=== PATIENT | female | born 1940 | race Caucasian/White ===

== ENCOUNTER 2016-08-09 22:22 | Emergency (ER) | payer MEDICARE ==
[2016-08-09] MEDS ORDERED: ACETAMINOPHEN 325 MG TABLET PO ONE (23:54)
--- NOTE | 2016-08-10 00:21 | ER Document Report ---
ED Fall - General Chief Complaint: Fall Stated Complaint: FALL/ALTERED MENTAL STATUS Notes: The patient is a 76-year-old female, past medical history dementia, on 81 mg daily ASA, since from the [facility] after she was found to have her head against the table while at dinner. She denies any LOC and is only complaining of a dull frontal headache. She denies numbness, tingling, blurry vision, neck pain, chest pain, shortness of breath, fevers or abdominal pain. TRAVEL OUTSIDE OF THE [place] IN LAST 30 DAYS: No - Related data Allergies/Adverse Reactions: No Known Allergies Allergy (Unverified 08/09/16 22:45) Past Medical History - General Information source: Transfer Record Cannot obtain history due to: Dementia - Social History Smoking Status: Unknown if Ever Smoked Family History: Reviewed & Not Pertinent - Past Medical History Cardiac Medical History: Reports: Hx Hypercholesterolemia, Hx Hypertension GI Medical History: Reports: Hx Gastroesophageal Reflux Disease Past Surgical History: Reports: Hx Abdominal Surgery Review of Systems - Review of Systems Notes: REVIEW OF SYSTEMS: CONSTITUTIONAL: -fevers, -chills EENT: -eye pain, -difficulty swallowing, -nasal congestion CARDIOVASCULAR:-chest pain, -syncope. RESPIRATORY: -cough, -SOB GASTROINTESTINAL: -abdominal pain, -nausea, -vomiting, -diarrhea GENITOURINARY: -dysuria, -hematuria MUSCULOSKELETAL: -back pain, -neck pain SKIN: -rash or skin lesions. HEMATOLOGIC: -easy bruising or bleeding. LYMPHATIC: -swollen, enlarged glands. NEUROLOGICAL: -altered mental status or loss of consciousness, +headache, - neurologic symptoms PSYCHIATRIC: -anxiety, -depression. ALL OTHER SYSTEMS REVIEWED AND NEGATIVE. Physical Exam - Vital signs Vitals: Temp Pulse Resp BP Pulse Ox 97.5 F 68 16 142/66 H 99 08/09/16 22:40 08/09/16 22:40 08/09/16 22:40 08/09/16 22:40 08/09/16 22:40 - Notes Notes: PHYSICAL EXAMINATION: GENERAL: Well-appearing, well-nourished and in no acute distress. HEAD: Atraumatic, normocephalic. EYES: Pupils equal round and reactive to light, extraocular movements intact, sclera anicteric, conjunctiva are normal. ENT: nares patent, oropharynx clear without exudates. Moist mucous membranes. NECK: Normal range of motion, supple without lymphadenopathy LUNGS: Breath sounds clear to auscultation bilaterally and equal. No wheezes rales or rhonchi. HEART: Regular rate and rhythm without murmurs ABDOMEN: Soft, nontender, normoactive bowel sounds. No guarding, no rebound. No masses appreciated. EXTREMITIES: Normal range of motion, no pitting or edema. No cyanosis. NEUROLOGICAL: Cranial nerves grossly intact. Normal speech, normal gait. Normal sensory, motor, and reflex exams. PSYCH: Normal mood, normal affect. SKIN: Warm, Dry, normal turgor, no rashes or lesions noted. Course - Re-evaluation Re-evalutation: Patient had a witnessed fall and she said that she hit the front of her head against the table. CT head does not show any acute abnormalities. Tylenol resolved her mild headache. No syncopal episode and no LOC. Will DC home back to the [facility] with follow-up at primary care physician. Given strict return precautions. - Vital Signs Vital signs: Temp Pulse Resp BP Pulse Ox 97.5 F 68 16 142/66 H 99 08/09/16 22:40 08/09/16 22:40 08/09/16 22:40 08/09/16 22:40 08/09/16 22:40 - Diagnostic Test Radiology reviewed: Image reviewed, Reports reviewed Radiology results interpreted by me: CT Head: NAD Discharge - Discharge Clinical Impression: Head injury Qualifiers: Encounter type: initial encounter Qualified Code(s): S09.90XA - Unspecified injury of head, initial encounter Condition: Good Disposition: HOME, SELF-CARE Additional Instructions: A CAT scan of your head does not show any bleeds or skull fractures. HEADACHE: The physician does not feel that the headache you are experiencing has a serious underlying cause. Most headaches are due to emotional stress, with resultant muscle tension (tension headache). Occasionally, headaches are secondary to changes in the blood vessels of the scalp (vascular headache and migraine headache). Sometimes, a headache is the first symptom of another developing illness, such as a viral infection. You have no evidence of stroke, bleeding, meningitis, or other serious cause of your headache. The treatment of headaches varies with the severity and cause of the pain. Not all headaches need pain shots. In fact, there is evidence that using narcotics for headaches may make them worse in the long run. The physician will determine the therapy that's in your best interest. If you develop a fever, if the headache is different from any you've previously experienced, or if the headache progressively worsens, then call your physician at once or go to the emergency room. FOLLOW-UP CARE: If you have been referred to a physician for follow-up care, call the physician s office for an appointment as you were instructed or within the next two days. If you experience worsening or a significant change in your symptoms, notify the physician immediately or return to the Emergency Department at any time for re-evaluation.
[2016-08-10 05:56] VITALS: BP 146/78
== END 2016-08-10 05:56 | disposition home or self-care (01) ==
LOC: ER 22:22
DX: S09.90XA Unspecified injury of head, initial encounter (principal); W07.XXXA Fall from chair, initial encounter; Y92.129 Unspecified place in nursing home as the place of occurrence of the external cause; R51 Headache; I10 Essential (primary) hypertension; F03.90 Unspecified dementia, unspecified severity, without behavioral disturbance, psychotic disturbance, mood disturbance, and anxiety
CPT/HCPCS: 99284; 70450; A9270

== ENCOUNTER → 2016-10-03 | Outpatient (CLI) | payer MEDICARE | LOC: RAD 13:59 | PROVIDERS: ATTEND Specialist | DX: S32.2XXA Fracture of coccyx, initial encounter for closed fracture (principal); X58.XXXA Exposure to other specified factors, initial encounter | CPT/HCPCS: 72220 ==

== ENCOUNTER 2017-01-15 03:27 | Emergency (ER) | payer MEDICARE ==
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
--- NOTE | 2017-01-15 04:53 | RADIOLOGY REPORT (SQ) ---
EXAM DESCRIPTION: CT HEAD WITHOUT COMPLETED DATE/TIME: 01/15/2017 4:34 am REASON FOR STUDY: fall pain head neck bilateral femur and abdomen COMPARISON: 2.. TECHNIQUE: Axial images acquired through the brain without intravenous contrast. Images reviewed wi th bone, brain and subdural windows. Images stored on PACS. All CT scanners at this facility use dose modulation, iterative reconstruction, and/or weight based d osing when appropriate to reduce radiation dose to as low as reasonably achievable (ALARA). [facility]: Dose Right [facility]: CareDose [facility]: Dose Right [facility]: Teradose 4D [facility]: [employer] RADIATION DOSE: Up-to-date CT equipment and radiation dose reduction techniques were employed. CTDIv ol: 50.5 mGy. DLP: 909 mGy-cm. mGy. LIMITATIONS: None. FINDINGS: VENTRICLES: Normal size and contour. CEREBRUM: No masses. No hemorrhage. No midline shift. Normal mckinnon/white matter differentiation. N o evidence for acute infarction. [id number] cerebral volume loss. CEREBELLUM: No masses. No hemorrhage. No alteration of density. No evidence for acute infarction. EXTRAAXIAL SPACES: No fluid collections. No masses. ORBITS AND GLOBE: No intra- or extraconal masses. Normal contour of globe without masses. CALVARIUM: No fracture. PARANASAL SINUSES: No fluid or mucosal thickening. SOFT TISSUES: No mass or hematoma. OTHER: No other significant finding. IMPRESSION: No acute findings. TECHNICAL DOCUMENTATION: JOB ID: [id number] Quality ID # [id number]: Final reports with documentation of one or more dose reduction techniques (e.g., Au tomated exposure control, adjustment of the mA and/or kV according to patient size, use of iterative reconstruction technique) 2010 [employer]- All Rights Reserved
--- NOTE | 2017-01-15 04:56 | RADIOLOGY REPORT (SQ) ---
EXAM DESCRIPTION: CT CERVICAL SPINE WITHOUT COMPLETED DATE/TIME: 01/15/2017 4:34 am REASON FOR STUDY: fall pain head neck bilateral femur and abdomen COMPARISON: None. TECHNIQUE: Axial images acquired through the cervical spine without intravenous contrast. Images re viewed with lung, soft tissue and bone windows. Reconstructed coronal and sagittal MPR images review ed. Images stored on PACS. All CT scanners at this facility use dose modulation, iterative reconstruction, and/or weight based d osing when appropriate to reduce radiation dose to as low as reasonably achievable (ALARA). [facility]: Dose Right [facility]: CareDose [facility]: Dose Right [facility]: Teradose 4D [facility]: [employer] RADIATION DOSE: Up-to-date CT equipment and radiation dose reduction techniques were employed. CTDIv ol: 7.6 mGy. DLP: 162 mGy-cm. mGy. LIMITATIONS: None. FINDINGS: ALIGNMENT: Anatomic. MINERALIZATION: Normal. VERTEBRAL BODIES: No fractures or dislocation. DISCS: Small to moderate desiccated -protrusive disc disease between the C2 and C6 levels. Mild-to-m oderate bilateral see the 5 and C6 bony foraminal stenosis FACETS, LATERAL MASSES, POSTERIOR ELEMENTS: Moderate spondylosis. HARDWARE: None in the spine. VISUALIZED RIBS: No fractures. LUNG APICES AND SOFT TISSUES: Moderate bullous disease of the visualized upper lungs. OTHER: No other significant finding. IMPRESSION: No acute findings. In small to moderate desiccated-protrusive disc disease of the midce rvical spine. Moderate spondylosis. TECHNICAL DOCUMENTATION: JOB ID: [id number] Quality ID # [id number]: Final reports with documentation of one or more dose reduction techniques (e.g., Au tomated exposure control, adjustment of the mA and/or kV according to patient size, use of iterative reconstruction technique) 2010 [employer]- All Rights Reserved
--- NOTE | 2017-01-15 05:21 | RADIOLOGY REPORT (SQ) ---
EXAM DESCRIPTION: FEMUR BILATERAL 2 VIEWS COMPLETED DATE/TIME: 01/15/2017 4:56 am REASON FOR STUDY: fall pain head neck bilateral femur and abdomen COMPARISON: None. NUMBER OF VIEWS: 8 views. TECHNIQUE: 8radiographic images acquired of the right and left femur to include hip and knee in at l east one projection. LIMITATIONS: None. FINDINGS: MINERALIZATION: Normal. BONES: No acute fracture. No worrisome bone lesions. SOFT TISSUES: No obvious swelling or foreign body. OTHER: Sutures of the lower pelvis. IMPRESSION: NEGATIVE STUDY OF THE RIGHT AND LEFT FEMURS. NO RADIOGRAPHIC EVIDENCE FOR ACUTE INJURY. TECHNICAL DOCUMENTATION: JOB ID: [id number] [employer]- All Rights Reserved
--- NOTE | 2017-01-15 05:24 | RADIOLOGY REPORT (SQ) ---
EXAM DESCRIPTION: L SPINE WHOLE COMPLETED DATE/TIME: 01/15/2017 4:56 am REASON FOR STUDY: fall pain head neck bilateral femur and abdomen COMPARISON: None. NUMBER OF VIEWS: Five views including obliques. TECHNIQUE: AP, lateral, oblique, and sacral radiographic images acquired of the lumbar spine. LIMITATIONS: None. FINDINGS: MINERALIZATION: Osteopenia. SEGMENTATION: Normal. No transitional anatomy. ALIGNMENT: Normal. VERTEBRAE: Mild L1 anterior compression deformity likely chronic compared with frontal abdomen radiog raphs, 06/07/2016. DISCS: Preserved height. No significant osteophytes or end plate irregularity. POSTERIOR ELEMENTS: Pedicles and facets are intact. No pars defect or posterior arch defects. HARDWARE: None in the spine. PARASPINAL SOFT TISSUES: Normal. PELVIS: Intact as visualized. No fractures or worrisome bone lesions. SI joints intact. OTHER: No other significant finding. IMPRESSION: Mild L1 anterior compression deformity, likely chronic based on limited comparative exam s. TECHNICAL DOCUMENTATION: JOB ID: [id number] [employer]- All Rights Reserved
[2017-01-15 07:24] VITALS: BP 152/85
== END 2017-01-15 07:26 ==
LOC: ER 03:27
DX: T14.8 Other injury of unspecified body region (principal); Y04.8XXA Assault by other bodily force, initial encounter; Y92.128 Other place in nursing home as the place of occurrence of the external cause; R51 Headache; M54.9 Dorsalgia, unspecified; M54.2 Cervicalgia; M79.652 Pain in left thigh; M79.651 Pain in right thigh; R10.9 Unspecified abdominal pain; G30.9 Alzheimer's disease, unspecified; F02.80 Dementia in other diseases classified elsewhere, unspecified severity, without behavioral disturbance, psychotic disturbance, mood disturbance, and anxiety; I10 Essential (primary) hypertension; E78.00 Pure hypercholesterolemia, unspecified; Z79.899 Other long term (current) drug therapy
CPT/HCPCS: 70450; 72110; 72125; 73552; 99285

== ENCOUNTER 2017-05-01 11:23 | Inpatient (IN) | payer MEDICARE ==
[2017-05-01] MEDS ORDERED: ONDANSETRON HCL INJ/PF 4 MG/2 ML SDV IV ONE (12:33)
--- NOTE | 2017-05-01 13:06 | ER Document Report ---
ED General - General Chief Complaint: Abdominal Pain Stated Complaint: ABDOMINAL PAIN Time Seen by Provider: 05/01/17 12:32 Mode of Arrival: Medic Information source: Patient Cannot obtain history due to: Dementia Notes: 77 yr old female hx of dementia presents from the [facility] with concern of abd pain and nausea vomtiing prior to arrival. Upon arrival pt denies any concerns at all and requests to go home immediately without any work up. No body care manager is present. TRAVEL OUTSIDE OF THE [place] IN LAST 30 DAYS: No - HPI Onset: Just prior to arrival Onset/Duration: Sudden Quality of pain: Achy Severity: Mild Pain Level: 1 Associated symptoms: Nausea, Vomiting Exacerbated by: Denies Relieved by: Denies Similar symptoms previously: No Recently seen / treated by doctor: No - Related Data Allergies/Adverse Reactions: No Known Allergies Allergy (Unverified 08/09/16 22:45) Home Medications: Current Home Medications Atorvastatin Calcium [Lipitor 10 mg Tablet] 10 mg PO QHS 05/01/17 [History] Metoprolol Succinate [Toprol Xl 25 mg Tab.sr] 12.5 mg PO DAILY 05/01/17 [History ] Omeprazole 40 mg PO Q6AM 05/01/17 [History] Quetiapine Fumarate [Seroquel] 50 mg PO QHS 05/01/17 [History] Past Medical History - Social History Smoking Status: Never Smoker Cigarette use (# per day): No Chew tobacco use (# tins/day): No Smoking Education Provided: No Family History: Reviewed & Not Pertinent - Past Medical History Cardiac Medical History: Reports: Hx Hypercholesterolemia, Hx Hypertension Renal/ Medical History: Denies: Hx Peritoneal Dialysis GI Medical History: Reports: Hx Gastroesophageal Reflux Disease Musculoskeltal Medical History: Reports Hx Arthritis Psychiatric Medical History: Reports: Hx Dementia - Alzheimer's Past Surgical History: Reports: Hx Abdominal Surgery Review of Systems - Review of Systems Notes: REVIEW OF SYSTEMS: CONSTITUTIONAL : Denies fever, chills, or sweats. Denies recent illness. EENT: Denies eye, ear, throat, or mouth pain or symptoms. Denies nasal or sinus congestion or discharge. Denies throat, tongue, or mouth swelling or difficulty swallowing. CARDIOVASCULAR: Denies chest pain. Denies palpitations or racing or irregular heart beat. Denies ankle edema. RESPIRATORY: Denies cough, cold, or chest congestion. Denies shortness of breath, difficulty breathing, or wheezing. GASTROINTESTINAL: Admits to abdominal pain nausea vomiting GENITOURINARY: Denies difficulty urinating, painful urination, burning, frequency, blood in urine, or discharge. FEMALE GENITOURINARY: Denies vaginal bleeding, heavy or abnormal periods, irregular periods. Denies vaginal discharge or odor. MUSCULOSKELETAL: Denies back or neck pain or stiffness. Denies joint pain or swelling. SKIN: Denies rash, lesions or sores. HEMATOLOGIC : Denies easy bruising or bleeding. LYMPHATIC: Denies swollen, enlarged glands. NEUROLOGICAL: Denies confusion or altered mental status. Denies passing out or loss of consciousness. Denies dizziness or lightheadedness. Denies headache. Denies weakness or paralysis or loss of use of either side. Denies problems with gait or speech. Denies sensory loss, numbness, or tingling. Denies seizures. PSYCHIATRIC: Denies anxiety or stress. Denies depression, suicidal ideation, or homicidal ideation. ALL OTHER SYSTEMS REVIEWED AND NEGATIVE. PHYSICAL EXAMINATION: GENERAL: Well-appearing, well-nourished and in no acute distress. HEAD: Atraumatic, normocephalic. EYES: Pupils equal round and reactive to light, extraocular movements intact, conjunctiva are normal. ENT: Nares patent, oropharynx clear without exudates. Moist mucous membranes. NECK: Normal range of motion, supple without lymphadenopathy LUNGS: Breath sounds clear to auscultation bilaterally and equal. No wheezes rales or rhonchi. HEART: Regular rate and rhythm without murmurs ABDOMEN: Soft, minimally tender epigastric region no rebound or guarding Female : deferred Musculoskeletal: Normal range of motion, no pitting or edema. No cyanosis. NEUROLOGICAL: Cranial nerves grossly intact. Normal speech, normal gait. Normal sensory, motor exams PSYCH: Normal mood, normal affect. SKIN: Warm, Dry, normal turgor, no rashes or lesions noted. Dictation was performed using [employer] voice recognition software Physical Exam - Vital signs Vitals: Resp Pulse Ox 17 92 05/01/17 11:46 05/01/17 11:46 Course - Re-evaluation Re-evalutation: 05/01/17 13:05 When I evaluated the patient, she was in no distress denies any complaints at all but was quite demented, she is oriented to person place not time. She believes the present works in the emergency department. She was agreeable at that time to do a CT of the abdomen even though she is nontender in no distress. Patient was evaluated by the nurse right after me immediately refused to have IV placed stated that she does not have any imaging done and that we cannot force her. I did attempt to call daughter and left a voice message 05/01/17 15:53 Daughter called again after finding of aortic aneurysm , [facility] was paged as well in order to get further history since patient has dementia She was 05/01/17 16:04 I did speak regarding admission with Dr. Cedeno, I explained that the patient denies any abdominal pain at this time, lipase was elevated patient does have urinary tract infection, 6 cm aortic aneurysm is noted but patient is a DNR, he believes patient's appropriate for discharge however at this time I will continue to watch in the ED 05/01/17 16:27 Ms Clemons called for the 4th time 05/01/17 16:38 Dr Martinez vascular surgeon states he would not intervene, requests beta ava for pressure control increased to 25 mg daily 05/01/17 16:[address] Ceedno and Dr Jeter, since patient is a DNR, no surgical intervention is offered by [facility], I would like ot admit her here for the pancreatitis and UTI. Pt is now admitting to mild epigastric pain which does not appear to be related to the AAA, i would have preferred to speak with family but again no response - Vital Signs Vital signs: Temp Pulse Resp BP Pulse Ox 29 H 138/80 H 100 05/01/17 13:01 05/01/17 16:02 05/01/17 16:02 - Laboratory Result Diagrams: 05/01/17 14:43 05/01/17 12:34 Laboratory results interpreted by me: 05/01/17 05/01/17 12:34 12:34 Sodium 145.2 H BUN 25 H Creatinine 1.36 H Est GFR ( Amer) 46 L Est GFR (Non-Af Amer) 38 L Direct Bilirubin 0.5 H Alkaline Phosphatase 138 H Lipase 447.9 H Urine Blood SMALL H Ur Leukocyte Esterase LARGE H - Diagnostic Test Radiology reviewed: Image reviewed, Reports reviewed Discharge - Discharge Clinical Impression: DNR (do not resuscitate), AAA (abdominal aortic aneurysm) without rupture UTI (urinary tract infection) Qualifiers: Urinary tract infection type: acute cystitis Hematuria presence: without hematuria Qualified Code(s): N30.00 - Acute cystitis without hematuria Pancreatitis Qualifiers: Chronicity: acute Pancreatitis type: unspecified pancreatitis type Acute pancreatitis complication: unspecified Qualified Code(s): K85.90 - Acute pancreatitis without necrosis or infection, unspecified Dementia Qualifiers: Dementia type: unspecified type Dementia behavioral disturbance: with behavioral disturbance Qualified Code(s): F03.91 - Unspecified dementia with behavioral disturbance Condition: Stable Disposition: ADMITTED OBSERVATION Admitting Provider: Hospitalist Unit Admitted: Telemetry
[2017-05-01 13:10] LABS: APPEARANCE,URINE CLOUDY; BILIRUBIN,URINE NEGATIVE (NEGATIVE); GLUCOSE, URINE NEGATIVE (NEGATIVE); KETONES,URINE NEGATIVE (NEGATIVE); LEUKOCYTE ESTERASE,URINE LARGE (NEGATIVE); NITRITE,URINE NEGATIVE (NEGATIVE); PROTEIN,URINE NEGATIVE (NEGATIVE); URINE SPECIFIC GRAVITY 1.009; UROBILINOGEN,URINE NEGATIVE mg/dL (<2.0)
[2017-05-01 13:30] LABS: ALANINE AMINOTRANSFERASE 11 U/L (9-52); ALBUMIN 4.1 g/dL (3.5-5.0); ALKALINE PHOSPHATASE 138 U/L (38-126); ANION GAP 11 (5-19); ASPARTATE AMINO TRANSFERASE 24 U/L (14-36); BILIRUBIN,DIRECT 0.5 mg/dL (0.0-0.4); BILIRUBIN,TOTAL 0.7 mg/dL (0.2-1.3); BLOOD UREA NITROGEN 25 mg/dL (7-20); CALCIUM 9.2 mg/dL (8.4-10.2); CARBON DIOXIDE 27 mmol/L (22-30); CHLORIDE 107 mmol/L (98-107); CREATININE RESULT 1.36 mg/dL (0.52-1.25); GLUCOSE 94 mg/dL (75-110); LIPASE 447.9 U/L (23-300); POTASSIUM 4.5 mmol/L (3.6-5.0); SODIUM 145.2 mmol/L (137-145); TOTAL PROTEIN 8.2 g/dL (6.3-8.2)
[2017-05-01] MEDS ORDERED: LORAZEPAM INJ 2 MG/1 ML VIAL IM ONE (13:43)
[2017-05-01] MEDS ORDERED: DIPHENHYDRAMINE HCL 50 MG/ML VIAL IM ONE (13:44)
[2017-05-01] MEDS ORDERED: LORAZEPAM INJ 2 MG/1 ML VIAL ONE (13:45)
[2017-05-01] MEDS ORDERED: CEFTRIAXONE 1 GM/D5W RTU 1 GM/50 ML RTUPB IV ONE (14:20)
[2017-05-01 15:11] LABS: ABSOLUTE BASOPHILS # (AUTO) 0.1 10^3/uL (0.0-0.2); ABSOLUTE EOSINOPHILS # (AUTO) 0.3 10^3/uL (0.0-0.6); ABSOLUTE LYMPHOCYTES (AUTO) 1.7 10^3/uL (0.5-4.7); ABSOLUTE MONOCYTES (AUTO) 0.7 10^3/uL (0.1-1.4); ABSOLUTE NEUT (AUTO) 4.9 10^3/uL (1.7-8.2); HEMATOCRIT 36.5 % (36.0-47.0); HEMOGLOBIN 12.3 g/dL (12.0-15.5); HGB HCT DIFFERENCE 0.4; LYMPHOCYTES % (AUTO) 21.9 % (13-45); MEAN CORPUSCULAR HEMOGLOBIN 31.2 pg (27.0-33.4); MEAN CORPUSCULAR HGB CONC 33.7 g/dL (32.0-36.0); MEAN CORPUSCULAR VOLUME 93 fl (80-97); MONOCYTES % (AUTO) 9.6 % (3-13); RED BLOOD COUNT 3.94 10^6/uL (3.72-5.28); RED CELL DISTRIBUTION WIDTH 13.9 % (11.5-14.0); SEGMENTED NEUTROPHILS % (AUTO) 63.5 % (42-78); WHITE BLOOD COUNT 7.8 10^3/uL (4.0-10.5)
[2017-05-01] MEDS: NORMAL SALINE 1000 ML 1,000 ML IV PRN ×2 (15:20→16:10)
--- NOTE | 2017-05-01 17:17 | RADIOLOGY REPORT (SQ) ---
EXAM DESCRIPTION: CT ABD/PELVIS WITH IV ONLY COMPLETED DATE/TIME: 05/01/2017 5:03 pm REASON FOR STUDY: abd pain COMPARISON: None. TECHNIQUE: CT scan of the abdomen and pelvis performed using helical scanning technique with dynamic intravenous contrast injection. No oral contrast. Images reviewed with lung, soft tissue, and bone windows. Reconstructed coronal and sagittal MPR images reviewed. Delayed images for evaluation of the urinary system also acquired. All images stored on PACS. All CT scanners at this facility use dose modulation, iterative reconstruction, and/or weight based d osing when appropriate to reduce radiation dose to as low as reasonably achievable (ALARA). [facility]: Dose Right [facility]: CareDose [facility]: Dose Right [facility]: Teradose 4D [facility]: ATOMOO CONTRAST TYPE AND DOSE: contrast/concentration: Isovue 370.00 mg/ml; Total Contrast Delivered: 53.0 ml; Total Saline Delivered: 39.4 ml RENAL FUNCTION: BUN 25 creatinine 1.4 RADIATION DOSE: Up-to-date CT equipment and radiation dose reduction techniques were employed. CTDIv ol: 5.4 - 6.5 mGy. DLP: 625 mGy-cm.. LIMITATIONS: Positioning. FINDINGS: LOWER CHEST: Hiatal hernia. LIVER: Normal size. No masses. No dilated ducts. SPLEEN: Normal size. No focal lesions. PANCREAS: No masses. No significant calcifications. No adjacent inflammation or peripancreatic fluid collections. Pancreatic duct not dilated. GALLBLADDER: Gallstones. No inflammatory changes to suggest cholecystitis. ADRENAL GLANDS: No significant masses or asymmetry. RIGHT KIDNEY AND URETER: No solid masses. No significant calcifications. No hydronephrosis or hyd roureter. LEFT KIDNEY AND URETER: No solid masses. No significant calcifications. No hydronephrosis or hydr oureter. AORTA AND VESSELS: Infrarenal aortic aneurysm 5.5 x 5.8 x 5.7 cm in AP by transverse by craniocaudal diameter. The true lumen diameter 3.0 x 4.4 cm. Mural thrombus to right of midline but no definite active extravasation. RETROPERITONEUM: No retroperitoneal adenopathy, hemorrhage or masses. BOWEL AND PERITONEAL CAVITY: Abundant fecal material throughout nondilated colon. APPENDIX: Not visualized. PELVIS: Mild mass effect on the urinary bladder due to impacted fecal material in the rectum. ABDOMINAL WALL: Prior ventral hernia repair. BONES: No significant or acute findings. OTHER: No other significant finding. IMPRESSION: 1. 6 cm infrarenal aortic aneurysm. 2. Fecal retention. 3. Cholelithiasis. TECHNICAL DOCUMENTATION: JOB ID: [id number] Quality ID # [id number]: Final reports with documentation of one or more dose reduction techniques (e.g., Au tomated exposure control, adjustment of the mA and/or kV according to patient size, use of iterative reconstruction technique) 2010 [employer]- All Rights Reserved
--- NOTE | 2017-05-01 17:43 | PDOC H&P ---
History of Present Illness Admission Date/PCP: 05/01/17 16:56 NO LOCALMD Patient complains of: Abdominal pain. History of Present Illness: SHAHBAZ ROSA is a 77 year old female with underlying dementia. She normally resides at the [facility]. She was brought in today for a 3 day history of abdominal pain. I am unable to get any reliable history from this patient secondary to her severe dementia. However, intermittently she has complained of nausea and vomiting with a poor appetite. She denies fevers or diarrhea. Again, her review of systems is very unreliable. The patient's physical exam is compatible with acute pancreatitis. The patient did have a CT scan done that confirms gallstones but does not demonstrate evidence of acute cholecystitis. The patient also has evidence of a urinary tract infection and according to records at [facility] she has had an extended spectrum beta lactamase producing bacteria in the past. She will be admitted to observation and reevaluated in the morning. She will be made n.p.o. overnight and we can try to advance her diet tomorrow. Past Medical History Cardiac Medical History: Reports: Hyperlipidema, Hypertension GI Medical History: Reports: Gastroesophageal Reflux Disease Musculoskeltal Medical History: Reports: Arthritis Psychiatric Medical History: Reports: Dementia - Alzheimer's Social History Smoking Status: Never Smoker - Advance Directive Resuscitation Status: Full Code Surrogate healthcare decision maker:: The computer lists Iris Clemons as the patient's point of contact. Her phone number in the chart is [phone] Family History Family History: Reviewed & Not Pertinent Parental Family History Reviewed: No - Unknown Children Family History Reviewed: Unknown Sibling(s) Family History Reviewed.: Unknown Medication/Allergy Home Medications: Atorvastatin Calcium [Lipitor 10 mg Tablet] 10 mg PO QHS 05/01/17 Metoprolol Succinate [Toprol Xl 25 mg Tab.sr] 12.5 mg PO DAILY 05/01/17 Omeprazole 40 mg PO Q6AM 05/01/17 Quetiapine Fumarate [Seroquel] 50 mg PO QHS 05/01/17 Allergies/Adverse Reactions: No Known Allergies Allergy (Unverified 08/09/16 22:45) Review of Systems ROS unobtainable: Due to mental status Physical Exam Vital Signs: Temp Pulse Resp BP Pulse Ox 29 H 138/80 H 100 05/01/17 13:01 05/01/17 16:02 05/01/17 16:02 General appearance: PRESENT: no acute distress Additional comments: The patient is in no distress. She is oriented to person. She does not know that she is in the emergency room. She cannot tell me what city she is in. She cannot tell me her current address. She is able to follow simple commands, E. G. Take a deep breath. Her facial appearance is fairly normal. Cranial nerves II through XII are intact. Her oropharynx shows that she has upper teeth but no lower teeth. She does have moderate dental caries present. The lips are normal. The mucous membranes are moist. The neck is supple. She has full range of motion. Trachea is midline. Thyroid is nonpalpable. She does not have any cervical or supraclavicular lymphadenopathy. The lungs are clear anteriorly. Posteriorly, the patient has some scattered crackles at the bases of the lung bran. Her cardiac exam is regular without murmurs, gallops or rubs. The abdomen is soft and flat. Bowel sounds are present and are hypoactive. The patient does not have any hepatosplenomegaly. She has no guarding or rebound noted and there are no hernias or masses present. The patient does have epigastric pain with moderate to deep palpation. The lower extremities are warm to touch. She has trace pedal edema which is symmetrical bilaterally. Skin exam is clean dry and intact without lesions or rashes. Results Impressions: Abdomen/Pelvis CT 05/01/17 12:32 IMPRESSION: 1. 6 cm infrarenal aortic aneurysm. 2. Fecal retention. 3. Cholelithiasis. Assessment & Plan - Diagnosis (1) AAA (abdominal aortic aneurysm) without rupture Is this a current diagnosis for this admission?: Yes Plan: The emergency room physician has contacted the vascular surgeon at [facility]. They have not recommended any intervention at this time for the abdominal aortic aneurysm. However, recommendations include increasing the dose of beta-ava. (2) Dementia Qualifiers: Dementia type: unspecified type Dementia behavioral disturbance: with behavioral disturbance Qualified Code(s): F03.91 - Unspecified dementia with behavioral disturbance Is this a current diagnosis for this admission?: Yes Plan: At this point in time I need to corroborate old records for CODE STATUS. We are trying to reach Iris Clemons. Until I can verify this information I will make the patient a full code. (3) Pancreatitis Qualifiers: Chronicity: acute Pancreatitis type: unspecified pancreatitis type Acute pancreatitis complication: unspecified Qualified Code(s): K85.90 - Acute pancreatitis without necrosis or infection, unspecified Plan: Begin IV fluids. I will make the patient n.p.o. overnight. Hopefully, we can try to advance her diet tomorrow. The patient does have gallstones. If she is considered an appropriate candidate we could consider an elective cholecystectomy. (4) UTI (urinary tract infection) Qualifiers: Urinary tract infection type: acute cystitis Hematuria presence: without hematuria Qualified Code(s): N30.00 - Acute cystitis without hematuria Is this a current diagnosis for this admission?: Yes Plan: Antibiotics will be started for acute urinary tract infection. - Time Time Spent: 50 to 70 Minutes - Inpatient Certification Medical Necessity: Significant Comorbidiites Make Outpatient Treatment Too Risky , Need for Pain Control, Need for IV Antibiotics, Risk of Complication if Not Cared For in Hospital
[2017-05-01] MEDS ORDERED: ONDANSETRON HCL INJ/PF 4 MG/2 ML SDV IV PRN (17:44)
[2017-05-01] MEDS ORDERED: GLUCAGON,HUMAN RECOMB 1 MG INJ SUBCUT PRN (17:44)
[2017-05-01] MEDS ORDERED: DEXTROSE 50%-WATER 25 GM/50 ML DISP.SYRIN IV PRN ×2 (17:44)
[2017-05-01] MEDS ORDERED: ACETAMINOPHEN 325 MG TABLET PO PRN (17:44)
[2017-05-01] MEDS ORDERED: DEXTROSE 40% GEL 15 GM TUBE PO PRN ×2 (17:44)
--- NOTE | 2017-05-01 18:49 | Progress Note ---
Provider Note Provider Note: The RN admitting the patient reports that the patient has confirmation of DNR status. Her paperwork has been DNR since May 20, 2016. Therefore, I will change the patient's CODE STATUS to DO NOT RESUSCITATE.
[2017-05-01] MEDS ORDERED: MEROPENEM 500 MG in NORMAL SALINE 50 ML IV SCH ×4 (22:00)
[2017-05-01] MEDS ORDERED: (PENDING PHARMACY ID) (Quetiapine Fumarate [Seroquel] 50 MG) PO SCH (22:00)
[2017-05-01] MEDS: DORIPENEM 250 MG in NORMAL SALINE 50 ML IV SCH (22:31)
[2017-05-01] MEDS: QUETIAPINE FUMARATE 25 MG TABLET PO SCH (22:34)
[2017-05-01] MEDS: ATORVASTATIN CALCIUM 10 MG TABLET PO SCH (22:34)
[2017-05-02 05:25] LABS: HEMATOCRIT 34.5 % (36.0-47.0); HEMOGLOBIN 11.7 g/dL (12.0-15.5); HGB HCT DIFFERENCE 0.6; MEAN CORPUSCULAR HEMOGLOBIN 31.3 pg (27.0-33.4); MEAN CORPUSCULAR HGB CONC 34.1 g/dL (32.0-36.0); MEAN CORPUSCULAR VOLUME 92 fl (80-97); RED BLOOD COUNT 3.75 10^6/uL (3.72-5.28); RED CELL DISTRIBUTION WIDTH 14.3 % (11.5-14.0); WHITE BLOOD COUNT 6.2 10^3/uL (4.0-10.5)
[2017-05-02] MEDS: LANSOPRAZOLE 30 MG TAB.RAP.DR PO SCH (05:38)
[2017-05-02] MEDS: DORIPENEM 250 MG in NORMAL SALINE 50 ML IV SCH (05:48)
[2017-05-02 05:56] LABS: ANION GAP 11 (5-19); BLOOD UREA NITROGEN 17 mg/dL (7-20); CALCIUM 8.8 mg/dL (8.4-10.2); CARBON DIOXIDE 24 mmol/L (22-30); CHLORIDE 109 mmol/L (98-107); CHOLESTEROL 200.84 mg/dL (0-200); CREATININE RESULT 1.15 mg/dL (0.52-1.25); Direct HDL 38 mg/dL (>40); GLUCOSE 97 mg/dL (75-110); PHOSPHORUS 3.3 mg/dL (2.5-4.5); SODIUM 144.2 mmol/L (137-145); TRIGLYCERIDES 114 mg/dL (<150)
[2017-05-02 06:06] LABS: DIRECT LDL 130 mg/dL (<100)
--- NOTE | 2017-05-02 08:06 | Physician Advisory Note ---
Physician Advisor ProgressNote .: [facility], I have reviewed the medical record for this patient. Physician Advisor Statement: Please consider documenting, if you agree: 1. "Hypernatremia, likely due to intravascular volume depletion, now resolved" 2. If she shows evidence of increased work of breathing associated with hypoxemia, please document this & consider dx of "Acute Resp Failure" Status: Appropriately made Obs initially. Since coming in, pt has had episodes of hypoxemia with tachypnea, as well as agitation. She was started on Doripenem (after Rocephin in ED). If she cannot be advanced in diet and safely set up for discharge today, please document the reasons ("I am concerned about ....") and may then change to Inpatient status. Thanks! CK
[2017-05-02] MEDS: METOPROLOL SUCCINATE 25 MG TAB.SR.24H PO SCH (09:22)
[2017-05-02] MEDS: DOCUSATE SODIUM 100 MG CAPSULE PO SCH (09:22)
[2017-05-02] MEDS: OXYCODONE-ACETAMINOPHEN 5-325 MG TABLET PO PRN ×2 (09:23→15:40)
--- NOTE | 2017-05-02 13:47 | PDOC PROGRESS REPORT ---
Subjective Progress Note for:: 05/02/17 Subjective:: SHAHBAZ ROSA is a 77 year old female with underlying dementia who was admitted on 05/01 with nausea, vomiting, and poor PO appetite. Admission labs notable for elevated lipase however CT abdomen showed no evidence of intra-abdominal pathology other than choleithiasis. She was admitted for suspected pancreatitis as observation status. Overnight continues to complain of abdominal pain, nausea, and vomiting. States that she had 3 episodes of non-bloody emesis. Has been unable to tolerate any PO due to symptoms. Denies fevers, chills, CP, SOB, abdominal pain. Patient at times confused and is an unreliable historian. Denies previous episodes of pancreatitis. Physical Exam Vital Signs: Temp Pulse Resp BP Pulse Ox 97.8 F 76 18 143/90 H 94 05/02/17 11:23 05/02/17 11:23 05/02/17 11:23 05/02/17 11:23 05/02/17 11:23 Intake & Output 05/01/17 05/02/17 05/03/17 06:59 06:59 06:59 Weight 51.6 kg General appearance: PRESENT: no acute distress, well-developed, well-nourished Head exam: PRESENT: atraumatic, normocephalic Eye exam: PRESENT: conjunctiva pink. ABSENT: scleral icterus Mouth exam: PRESENT: dry mucosa Neck exam: ABSENT: carotid bruit, JVD, lymphadenopathy, thyromegaly Respiratory exam: PRESENT: crackles - mild crackles at bases, decreased breath sounds. ABSENT: rales, rhonchi, wheezes Cardiovascular exam: PRESENT: RRR. ABSENT: diastolic murmur, rubs, systolic murmur Pulses: PRESENT: normal dorsalis pedis pul Vascular exam: PRESENT: normal capillary refill GI/Abdominal exam: PRESENT: normal bowel sounds, soft, tenderness - Epigastric tenderness to deep palpation. ABSENT: distended, guarding, mass, organolmegaly , rebound Rectal exam: PRESENT: deferred Extremities exam: PRESENT: full ROM. ABSENT: calf tenderness, clubbing, pedal edema Neurological exam: PRESENT: alert, awake, oriented to person, oriented to situation, CN II-XII grossly intact. ABSENT: oriented to place, oriented to time, motor sensory deficit Psychiatric exam: PRESENT: anxious. ABSENT: homicidal ideation, suicidal ideation Focused psych exam: PRESENT: other - Confused Skin exam: PRESENT: dry, intact, warm. ABSENT: cyanosis, rash Results Laboratory Results: 05/02/17 04:25 05/02/17 04:25 05/02/17 05/02/17 04:25 04:25 WBC 6.2 RBC 3.75 Hgb 11.7 L Hct 34.5 L MCV 92 MCH 31.3 MCHC 34.1 RDW 14.3 H Plt Count 205 Sodium 144.2 Potassium 4.0 Chloride 109 H Carbon Dioxide 24 Anion Gap 11 BUN 17 Creatinine 1.15 Est GFR ( Amer) 56 L Est GFR (Non-Af Amer) 46 L Glucose 97 Calcium 8.8 Phosphorus 3.3 Magnesium 2.0 Triglycerides 114 Cholesterol 200.84 H LDL Cholesterol Direct 130 H VLDL Cholesterol 23.0 HDL Cholesterol 38 L Impressions: Abdomen/Pelvis CT 05/01/17 12:32 IMPRESSION: 1. 6 cm infrarenal aortic aneurysm. 2. Fecal retention. 3. Cholelithiasis. Assessment & Plan - Diagnosis (1) Pancreatitis Qualifiers: Chronicity: acute Pancreatitis type: unspecified pancreatitis type Acute pancreatitis complication: unspecified Qualified Code(s): K85.90 - Acute pancreatitis without necrosis or infection, unspecified Plan: Not entirely clear if abdominal pain is secondary to pancreatitis. Lipase is noted to be elevated however there is no evidence of pancreatic stranding on CT abdominal report. However patient continues to have abdominal pain, nausea, vomiting, and poor PO intake. Plan - Continue NPO status for now, consideration of advancing diet later today or tomorrow AM - Continue supportive measures with IVF, anti-emetics, and pain medications - No indication for further imaging at this time. (2) UTI (urinary tract infection) Qualifiers: Urinary tract infection type: acute cystitis Hematuria presence: without hematuria Qualified Code(s): N30.00 - Acute cystitis without hematuria Is this a current diagnosis for this admission?: Yes Plan: Resolved. Urine culture with mixed joseluis. Antibiotics discontinued. (3) AAA (abdominal aortic aneurysm) without rupture Is this a current diagnosis for this admission?: Yes Plan: At admission, [facility] ED contacted the vascular surgeon at [facility]. They have not recommended any intervention at this time for the abdominal aortic aneurysm. Beta-ava dose was increased per recommendation. Should be followed closely as an outpatient. (4) DNR (do not resuscitate) Plan: Code status discussed and is DNI/DNR (5) Dementia Qualifiers: Dementia type: unspecified type Dementia behavioral disturbance: with behavioral disturbance Qualified Code(s): F03.91 - Unspecified dementia with behavioral disturbance Is this a current diagnosis for this admission?: Yes Plan: Appears to be at baseline. - Time Time Spent with patient: 15-24 minutes Critical Time spent with patient: 15-24 minutes - Inpatient Certification Medical Necessity: Need For IV Fluids, Risk of Complication if Not Cared For in Hospital
[2017-05-02] MEDS: DEXTROSE 5%-1/2 NORMAL SALINE 1,000 ML IV PRN (14:21)
[2017-05-02] MEDS ORDERED: PROCHLORPERAZINE MALEATE 5 MG TABLET PO PRN (17:04)
[2017-05-02] MEDS ORDERED: ONDANSETRON HCL INJ/PF 4 MG/2 ML SDV IV PRN (17:05)
[2017-05-02] MEDS: QUETIAPINE FUMARATE 25 MG TABLET PO SCH (21:20)
[2017-05-02] MEDS: ATORVASTATIN CALCIUM 10 MG TABLET PO SCH (21:20)
[2017-05-03] MEDS: LANSOPRAZOLE 30 MG TAB.RAP.DR PO SCH (05:02)
[2017-05-03 05:26] LABS: HEMATOCRIT 32.1 % (36.0-47.0); HEMOGLOBIN 11.1 g/dL (12.0-15.5); HGB HCT DIFFERENCE 1.2; MEAN CORPUSCULAR HEMOGLOBIN 31.7 pg (27.0-33.4); MEAN CORPUSCULAR HGB CONC 34.6 g/dL (32.0-36.0); MEAN CORPUSCULAR VOLUME 92 fl (80-97); RED CELL DISTRIBUTION WIDTH 14.1 % (11.5-14.0)
[2017-05-03 05:45] LABS: ANION GAP 13 (5-19); BLOOD UREA NITROGEN 14 mg/dL (7-20); CALCIUM 8.7 mg/dL (8.4-10.2); CARBON DIOXIDE 22 mmol/L (22-30); CHLORIDE 108 mmol/L (98-107); CREATININE RESULT 1.08 mg/dL (0.52-1.25); GLUCOSE 112 mg/dL (75-110); POTASSIUM 3.7 mmol/L (3.6-5.0)
[2017-05-03] MEDS: DOCUSATE SODIUM 100 MG CAPSULE PO SCH (09:26)
[2017-05-03] MEDS: METOPROLOL SUCCINATE 25 MG TAB.SR.24H PO SCH (09:29)
[2017-05-03] MEDS: ONDANSETRON HCL INJ/PF 4 MG/2 ML SDV IV PRN ×2 (09:35→16:19)
[2017-05-03] MEDS: PROCHLORPERAZINE MALEATE 5 MG TABLET PO PRN (10:20)
[2017-05-03] MEDS: OXYCODONE-ACETAMINOPHEN 5-325 MG TABLET PO PRN (10:20)
--- NOTE | 2017-05-03 14:21 | PDOC PROGRESS REPORT ---
Subjective Progress Note for:: 05/03/17 Subjective:: Pt states that she is still having abd pain. Physical Exam Vital Signs: Temp Pulse Resp BP Pulse Ox 98.9 F 74 16 106/62 90 L 05/03/17 11:35 05/03/17 11:35 05/03/17 11:35 05/03/17 11:35 05/03/17 11:35 Intake & Output 05/02/17 05/03/17 05/04/17 06:59 06:59 06:59 Intake Total 1781 Balance 1781 Weight 51.4 kg 51.4 kg General appearance: PRESENT: no acute distress, thin Head exam: PRESENT: atraumatic, normocephalic Eye exam: PRESENT: conjunctiva pink, EOMI, PERRLA. ABSENT: scleral icterus Ear exam: PRESENT: normal external ear exam Mouth exam: PRESENT: moist, tongue midline Neck exam: ABSENT: carotid bruit, JVD, lymphadenopathy, thyromegaly Respiratory exam: PRESENT: clear to auscultation kenn. ABSENT: rales, rhonchi, wheezes Cardiovascular exam: PRESENT: RRR. ABSENT: diastolic murmur, rubs, systolic murmur Pulses: PRESENT: normal dorsalis pedis pul GI/Abdominal exam: PRESENT: soft, tenderness - epigastric tenderness Rectal exam: PRESENT: deferred Extremities exam: PRESENT: full ROM. ABSENT: calf tenderness, clubbing, pedal edema Neurological exam: PRESENT: alert, altered, oriented to person Psychiatric exam: PRESENT: appropriate affect, normal mood. ABSENT: homicidal ideation, suicidal ideation Skin exam: PRESENT: dry, intact, warm. ABSENT: cyanosis, rash Results Laboratory Results: 05/03/17 04:30 05/03/17 04:30 05/03/17 05/03/17 04:30 04:30 WBC 6.0 RBC 3.50 L Hgb 11.1 L Hct 32.1 L MCV 92 MCH 31.7 MCHC 34.6 RDW 14.1 H Plt Count 198 Sodium 143.0 Potassium 3.7 Chloride 108 H Carbon Dioxide 22 Anion Gap 13 BUN 14 Creatinine 1.08 Est GFR ( Amer) > 60 Est GFR (Non-Af Amer) 49 L Glucose 112 H Calcium 8.7 Impressions: Abdomen/Pelvis CT 05/01/17 12:32 IMPRESSION: 1. 6 cm infrarenal aortic aneurysm. 2. Fecal retention. 3. Cholelithiasis. Assessment & Plan - Diagnosis (1) Pancreatitis Qualifiers: Chronicity: acute Pancreatitis type: unspecified pancreatitis type Acute pancreatitis complication: unspecified Qualified Code(s): K85.90 - Acute pancreatitis without necrosis or infection, unspecified Is this a current diagnosis for this admission?: Yes Plan: Will continue current treatment. (2) Constipation Is this a current diagnosis for this admission?: Yes Plan: Write for Enema. Will write for Magnesium Citrate. (3) Acute renal injury Is this a current diagnosis for this admission?: Yes Plan: in Setting of CKD Stage 2: Will continue IVF. Renal function has improved. (4) AAA (abdominal aortic aneurysm) without rupture Is this a current diagnosis for this admission?: Yes Plan: Supportive care. (5) Dementia Qualifiers: Dementia type: unspecified type Dementia behavioral disturbance: with behavioral disturbance Qualified Code(s): F03.91 - Unspecified dementia with behavioral disturbance Is this a current diagnosis for this admission?: Yes Plan: Supportive Care. (6) UTI (urinary tract infection) Qualifiers: Urinary tract infection type: acute cystitis Hematuria presence: without hematuria Qualified Code(s): N30.00 - Acute cystitis without hematuria Is this a current diagnosis for this admission?: Yes Plan: Urine culture not consistent with UTI/Acute Cystitis: Ruled out. (7) DNR (do not resuscitate) Is this a current diagnosis for this admission?: Yes Plan: Continue current treatment. - Time Time Spent with patient: 15-24 minutes
[2017-05-03] MEDS ORDERED: MAGNESIUM CITRATE 296 ML BOTTLE PO ONE (15:30)
[2017-05-03] MEDS: QUETIAPINE FUMARATE 25 MG TABLET PO SCH (21:28)
[2017-05-03] MEDS: ATORVASTATIN CALCIUM 10 MG TABLET PO SCH (21:28)
[2017-05-04] MEDS: LANSOPRAZOLE 30 MG TAB.RAP.DR PO SCH (05:09)
[2017-05-04 06:01] LABS: ALANINE AMINOTRANSFERASE 27 U/L (9-52); ALBUMIN 3.1 g/dL (3.5-5.0); ALKALINE PHOSPHATASE 95 U/L (38-126); ANION GAP 10 (5-19); ASPARTATE AMINO TRANSFERASE 17 U/L (14-36); BILIRUBIN,DIRECT 0.5 mg/dL (0.0-0.4); BILIRUBIN,TOTAL 0.6 mg/dL (0.2-1.3); BLOOD UREA NITROGEN 12 mg/dL (7-20); CALCIUM 8.7 mg/dL (8.4-10.2); CARBON DIOXIDE 23 mmol/L (22-30); CHLORIDE 110 mmol/L (98-107); CREATININE RESULT 1.13 mg/dL (0.52-1.25); GLUCOSE 108 mg/dL (75-110); POTASSIUM 3.9 mmol/L (3.6-5.0); SODIUM 143.4 mmol/L (137-145); TOTAL PROTEIN 6.3 g/dL (6.3-8.2)
--- NOTE | 2017-05-04 09:21 | PDOC PROGRESS REPORT ---
Subjective Progress Note for:: 05/04/17 Subjective:: Nursing states that pt had a large bowel movement overnight. Pt this morning states that she is not having any abd pain. Pt states that she would like to eat. Physical Exam Vital Signs: Temp Pulse Resp BP Pulse Ox 98.8 F 80 16 127/76 H 93 05/04/17 07:42 05/04/17 07:42 05/04/17 07:42 05/04/17 07:42 05/04/17 07:42 Intake & Output 05/03/17 05/04/17 05/05/17 06:59 06:59 06:59 Intake Total 1781 1800 Balance 1781 1800 Weight 51.4 kg 50.2 kg General appearance: PRESENT: no acute distress, thin Head exam: PRESENT: atraumatic, normocephalic Eye exam: PRESENT: conjunctiva pink, EOMI, PERRLA. ABSENT: scleral icterus Ear exam: PRESENT: normal external ear exam Neck exam: ABSENT: carotid bruit, JVD, lymphadenopathy, thyromegaly Respiratory exam: PRESENT: clear to auscultation kenn. ABSENT: rales, rhonchi, wheezes Cardiovascular exam: PRESENT: RRR. ABSENT: diastolic murmur, rubs, systolic murmur Pulses: PRESENT: normal dorsalis pedis pul Vascular exam: PRESENT: normal capillary refill GI/Abdominal exam: PRESENT: normal bowel sounds, soft. ABSENT: distended, guarding, mass, organolmegaly, rebound, tenderness Rectal exam: PRESENT: deferred Extremities exam: PRESENT: full ROM. ABSENT: calf tenderness, clubbing, pedal edema Musculoskeletal exam: PRESENT: full ROM Neurological exam: PRESENT: alert, awake, oriented to person Psychiatric exam: PRESENT: appropriate affect, normal mood. ABSENT: homicidal ideation, suicidal ideation Skin exam: PRESENT: dry, intact, warm. ABSENT: cyanosis, rash Results Laboratory Results: 05/03/17 04:30 05/04/17 05:06 05/04/17 05:06 Sodium 143.4 Potassium 3.9 Chloride 110 H Carbon Dioxide 23 Anion Gap 10 BUN 12 Creatinine 1.13 Est GFR ( Amer) 57 L Est GFR (Non-Af Amer) 47 L Glucose 108 Calcium 8.7 Total Bilirubin 0.6 AST 17 ALT 27 Alkaline Phosphatase 95 Total Protein 6.3 Albumin 3.1 L Impressions: Abdomen/Pelvis CT 05/01/17 12:32 IMPRESSION: 1. 6 cm infrarenal aortic aneurysm. 2. Fecal retention. 3. Cholelithiasis. Assessment & Plan - Diagnosis (1) Pancreatitis Qualifiers: Chronicity: acute Pancreatitis type: unspecified pancreatitis type Acute pancreatitis complication: unspecified Qualified Code(s): K85.90 - Acute pancreatitis without necrosis or infection, unspecified Is this a current diagnosis for this admission?: Yes Plan: Will advance diet today. (2) Constipation Is this a current diagnosis for this admission?: Yes Plan: Will check KUB today. Nursing and Pt reporting large bowel movement. (3) Acute renal injury Is this a current diagnosis for this admission?: Yes Plan: in Setting of CKD Stage 2: Resolved. (4) AAA (abdominal aortic aneurysm) without rupture Is this a current diagnosis for this admission?: Yes Plan: Supportive care. (5) Dementia Qualifiers: Dementia type: unspecified type Dementia behavioral disturbance: with behavioral disturbance Qualified Code(s): F03.91 - Unspecified dementia with behavioral disturbance Is this a current diagnosis for this admission?: Yes Plan: Supportive Care. (6) UTI (urinary tract infection) Qualifiers: Urinary tract infection type: acute cystitis Hematuria presence: without hematuria Qualified Code(s): N30.00 - Acute cystitis without hematuria Is this a current diagnosis for this admission?: Yes Plan: Urine culture not consistent with UTI/Acute Cystitis: Ruled out. (7) DNR (do not resuscitate) Is this a current diagnosis for this admission?: Yes Plan: Continue current treatment. - Time Time Spent with patient: 15-24 minutes
--- NOTE | 2017-05-04 10:56 | Physician Advisory Note ---
Physician Advisor ProgressNote .: Pursuant to the plan for [facility], I have reviewed the medical record for this patient. Physician Advisor Statement: Please consider documenting, if you agree: 1. "Acute hypernatremia, likely due to intravascular volume depletion, resolved " 2. "Suspected JEFFREY, ruled out" (or document evidence of >0.3mg/dl improvement in Cr since IVF) 3. "underweight with protein-calorie malnutrition [state mild, mod, or severe] with BMI __, ____[?wt loss, ?appetite loss, ]" [if possible, give specifics on intake, wt loss, loss of SQ fat & muscle mass, diminished hand accreditation specialist strength, & clinical importance such as (A) nutritional assessment ordered, (B) modified diet or supplements ordered, (C) additional labs ordered, (D) prolonged wound healing time, (E) delayed infxn clearance] Thanks! CK
--- NOTE | 2017-05-04 11:06 | RADIOLOGY REPORT (SQ) ---
EXAM DESCRIPTION: KUB/ABDOMEN (SINGLE VIEW) COMPLETED DATE/TIME: 05/04/2017 10:43 am REASON FOR STUDY: Constipation A41.9 SEPSIS, UNSPECIFIED ORGANISM K85.80 OTHER ACUTE PANCREATITIS WITHOUT NECROSIS OR INFECTIO COMPARISON: 06/07/[address] ABDOMEN AND PELVIS 05/01/2017 NUMBER OF VIEWS: One view. TECHNIQUE: Supine radiographic image of the abdomen acquired. LIMITATIONS: None. FINDINGS: BOWEL GAS PATTERN: Persistent large amount of stool in the ascending and transverse colon, large amount of stool in the rectum. Otherwise unremarkable bowel gas pattern. CALCIFICATIONS: Multiple small calcified gallstones in the right upper quadrant. SOFT TISSUES: No gross mass or suggestion of organomegaly. HARDWARE: Midline surgical sutures, faintly radiopaque. BONES: No acute fracture. No worrisome bone lesions. OTHER: The under ruptured infrarenal abdominal aortic aneurysm seen on CT exam 05/01/2017 is not appa rent by plain film IMPRESSION: Persistent large amount of stool in the colon Findings called to Dr. Aldrich TECHNICAL DOCUMENTATION: JOB ID: [id number] [employer]- All Rights Reserved
[2017-05-04] MEDS: DOCUSATE SODIUM 100 MG CAPSULE PO SCH (11:42)
[2017-05-04] MEDS: METOPROLOL SUCCINATE 25 MG TAB.SR.24H PO SCH (11:44)
[2017-05-04] MEDS: DEXTROSE 5%-1/2 NORMAL SALINE 1,000 ML IV PRN (12:19)
[2017-05-04] MEDS: ONDANSETRON HCL INJ/PF 4 MG/2 ML SDV IV PRN (16:48)
[2017-05-04] MEDS ORDERED: PEG 3350/NA SULF,BICARB,CL/KCL 4000 ML PO ONE (17:00)
[2017-05-04] MEDS: QUETIAPINE FUMARATE 25 MG TABLET PO SCH (21:21)
[2017-05-04] MEDS: ATORVASTATIN CALCIUM 10 MG TABLET PO SCH (21:21)
[2017-05-05] MEDS: LANSOPRAZOLE 30 MG TAB.RAP.DR PO SCH (05:27)
[2017-05-05 06:34] LABS: ANION GAP 13 (5-19); BLOOD UREA NITROGEN 15 mg/dL (7-20); CARBON DIOXIDE 23 mmol/L (22-30); CHLORIDE 107 mmol/L (98-107); CREATININE RESULT 1.11 mg/dL (0.52-1.25); GLUCOSE 90 mg/dL (75-110); SODIUM 142.5 mmol/L (137-145)
[2017-05-05] MEDS: METOPROLOL SUCCINATE 25 MG TAB.SR.24H PO SCH (09:55)
[2017-05-05] MEDS: ONDANSETRON HCL INJ/PF 4 MG/2 ML SDV IV PRN (09:55)
[2017-05-05] MEDS: DOCUSATE SODIUM 100 MG CAPSULE PO SCH (09:55)
[2017-05-05] MEDS ORDERED: MAGNESIUM CITRATE 296 ML BOTTLE PO ONE ×2 (10:00→14:00)
[2017-05-05] MEDS: PROCHLORPERAZINE MALEATE 5 MG TABLET PO PRN ×2 (10:06→16:23)
--- NOTE | 2017-05-05 15:56 | PDOC PROGRESS REPORT ---
Subjective Progress Note for:: 05/05/17 Subjective:: Pt states that she is doing well. Nursing states that she would not drank Magnesium Citrate or Golytely. Physical Exam Vital Signs: Temp Pulse Resp BP Pulse Ox 98.5 F 78 20 143/73 H 96 05/05/17 12:00 05/05/17 12:00 05/05/17 12:00 05/05/17 12:00 05/05/17 12:00 Intake & Output 05/04/17 05/05/17 05/06/17 06:59 06:59 06:59 Intake Total 1800 806 Balance 1800 806 Weight 50.2 kg 51.3 kg General appearance: PRESENT: no acute distress, thin Head exam: PRESENT: atraumatic, normocephalic Eye exam: PRESENT: conjunctiva pink, EOMI, PERRLA. ABSENT: scleral icterus Ear exam: PRESENT: normal external ear exam Mouth exam: PRESENT: moist, tongue midline Neck exam: ABSENT: carotid bruit, JVD, lymphadenopathy, thyromegaly Respiratory exam: PRESENT: clear to auscultation kenn. ABSENT: rales, rhonchi, wheezes Cardiovascular exam: PRESENT: RRR. ABSENT: diastolic murmur, rubs, systolic murmur Pulses: PRESENT: normal dorsalis pedis pul Vascular exam: PRESENT: normal capillary refill GI/Abdominal exam: PRESENT: normal bowel sounds, soft. ABSENT: distended, guarding, mass, organolmegaly, rebound, tenderness Rectal exam: PRESENT: deferred Extremities exam: PRESENT: full ROM. ABSENT: calf tenderness, clubbing, pedal edema Neurological exam: PRESENT: alert, altered, awake, oriented to person Psychiatric exam: PRESENT: appropriate affect, normal mood. ABSENT: homicidal ideation, suicidal ideation Skin exam: PRESENT: dry, intact, warm. ABSENT: cyanosis, rash Results Laboratory Results: 05/03/17 04:30 05/05/17 05:00 05/05/17 05:00 Sodium 142.5 Potassium 4.0 Chloride 107 Carbon Dioxide 23 Anion Gap 13 BUN 15 Creatinine 1.11 Est GFR ( Amer) 58 L Est GFR (Non-Af Amer) 48 L Glucose 90 Calcium 9.0 Impressions: Abdomen/Pelvis CT 05/01/17 12:32 IMPRESSION: 1. 6 cm infrarenal aortic aneurysm. 2. Fecal retention. 3. Cholelithiasis. KUB X-Ray 05/04/17 00:00 IMPRESSION: Persistent large amount of stool in the colon Findings called to Dr. Aldrich Assessment & Plan - Diagnosis (1) Constipation Is this a current diagnosis for this admission?: Yes Plan: Will place on Miralax and order enema again. Will discharge on miralax daily. (2) Pancreatitis Qualifiers: Chronicity: acute Pancreatitis type: unspecified pancreatitis type Acute pancreatitis complication: unspecified Qualified Code(s): K85.90 - Acute pancreatitis without necrosis or infection, unspecified Is this a current diagnosis for this admission?: Yes Plan: Resolved. (3) Acute renal injury Is this a current diagnosis for this admission?: Yes Plan: in Setting of CKD Stage 2 initial Cr 1.36: Pt given IVF and cr improved to 1.08. (4) Acute hypernatremia Is this a current diagnosis for this admission?: Yes Plan: Secondary to Dehydration: Resolved with IVFs (5) Dehydration Is this a current diagnosis for this admission?: Yes Plan: Resolved with IVFs (6) Moderate protein-calorie malnutrition Is this a current diagnosis for this admission?: Yes Plan: Continue to encourage good PO intake. (7) AAA (abdominal aortic aneurysm) without rupture Is this a current diagnosis for this admission?: Yes Plan: Will arrange pt with Interventional Radiology at [facility] [phone]. (8) Dementia Qualifiers: Dementia type: unspecified type Dementia behavioral disturbance: with behavioral disturbance Qualified Code(s): F03.91 - Unspecified dementia with behavioral disturbance Is this a current diagnosis for this admission?: Yes Plan: Supportive Care. (9) UTI (urinary tract infection) Qualifiers: Urinary tract infection type: acute cystitis Hematuria presence: without hematuria Qualified Code(s): N30.00 - Acute cystitis without hematuria Is this a current diagnosis for this admission?: Yes Plan: Urine culture not consistent with UTI/Acute Cystitis: Ruled out. (10) DNR (do not resuscitate) Is this a current diagnosis for this admission?: Yes Plan: Continue current treatment. - Time Time Spent with patient: Less than 15 minutes
[2017-05-05] MEDS ORDERED: PROMETHAZINE HCL INJ 25 MG/1 ML VIAL IV ONE (17:00)
[2017-05-05] MEDS: QUETIAPINE FUMARATE 25 MG TABLET PO SCH (21:52)
[2017-05-05] MEDS: ATORVASTATIN CALCIUM 10 MG TABLET PO SCH (21:52)
[2017-05-06] MEDS: LANSOPRAZOLE 30 MG TAB.RAP.DR PO SCH (06:59)
[2017-05-06] MEDS: METOPROLOL SUCCINATE 25 MG TAB.SR.24H PO SCH (09:25)
[2017-05-06] MEDS: DOCUSATE SODIUM 100 MG CAPSULE PO SCH (09:25)
[2017-05-06] MEDS ORDERED: POLYETHYLENE GLYCOL 3350 POWDER 17 GM/1 PACKET PO SCH (10:00)
--- NOTE | 2017-05-06 11:27 | PDOC TRANSFER SUMMARY ---
General - Admit/Disc Date/PCP Admission Date/Primary Care Provider: 05/02/17 15:32 NO LOCALMD Discharge Date: 05/06/17 - Discharge Diagnosis (1) Constipation Is this a current diagnosis for this admission?: Yes Summary: Will continue on Miralax and colace daily. (2) Pancreatitis Is this a current diagnosis for this admission?: Yes Summary: Resolved (3) Acute renal injury Is this a current diagnosis for this admission?: Yes Summary: Encourage good PO intake. (4) Acute hypernatremia Is this a current diagnosis for this admission?: Yes Summary: In setting of Dehydration: Resolved. (5) Dehydration Is this a current diagnosis for this admission?: Yes Summary: Resolved. (6) Moderate protein-calorie malnutrition Is this a current diagnosis for this admission?: Yes Summary: Encourage good PO intake. (7) AAA (abdominal aortic aneurysm) without rupture Is this a current diagnosis for this admission?: Yes Summary: Pt will need to be arrange with Interventional Radiology at [facility] [phone]. (8) Dementia Is this a current diagnosis for this admission?: Yes Summary: Supportive care. (9) UTI (urinary tract infection) Is this a current diagnosis for this admission?: Yes Summary: Ruled out (10) DNR (do not resuscitate) Is this a current diagnosis for this admission?: Yes - Additional Information Resuscitation Status: Do Not Resuscitate Discharge Diet: Cardiac Discharge Activity: Activity As Tolerated Home Medications: Atorvastatin Calcium [Lipitor 10 mg Tablet] 10 mg PO QHS 05/01/17 Metoprolol Succinate [Toprol Xl 25 mg Tab.sr] 12.5 mg PO DAILY 05/01/17 Omeprazole 40 mg PO Q6AM 05/01/17 Quetiapine Fumarate [Seroquel] 50 mg PO QHS 05/01/17 Docusate Sodium [Colace 100 mg Capsule] 100 mg PO DAILY capsule 05/06/17 Polyethylene Glycol 3350 [Miralax Powder 17 gm/Packet] 17 gm PO DAILY powd.pack 05/06/17 History of Present Illness Admission Date/PCP: 05/02/17 15:32 NO LOCALPA Patient complains of: ABD pain History of Present Illness: Pt is a 77 year old female admitted for abd pain. Pt was found to have pancreatitis and constipation. Hospital Course Hospital Course: Pt is a 77 year old female who was admitted for abd pain for 3 days. Pt was found to have Pancreatitis and placed on IVF and made NPO. Pt did well during hospitalization. Pt was found to be dehydrated and was placed on IVFs. Pt was also found to have acute renal injury. These issues resolved with IVFs. Pt was found to be constipated. Pt was placed on colace and miralax. Pt was given enema which resulted into multiple bowel movement. Pt was found to have AAA and will need to follow up with [facility] for intervention in 1-2 weeks. Physical Exam Vital Signs: Temp Pulse Resp BP Pulse Ox 97.4 F 85 18 92/47 L 99 05/06/17 08:28 05/06/17 08:28 05/06/17 08:28 05/06/17 08:28 05/06/17 08:28 Intake & Output 05/05/17 05/06/17 05/07/17 06:59 06:59 06:59 Intake Total 806 785 Output Total 200 Balance 806 585 Weight 51.3 kg 51.7 kg General appearance: PRESENT: no acute distress, thin Head exam: PRESENT: atraumatic, normocephalic Eye exam: PRESENT: conjunctiva pink, EOMI, PERRLA. ABSENT: scleral icterus Ear exam: PRESENT: normal external ear exam Mouth exam: PRESENT: moist, tongue midline Neck exam: ABSENT: carotid bruit, JVD, lymphadenopathy, thyromegaly Respiratory exam: PRESENT: clear to auscultation kenn. ABSENT: rales, rhonchi, wheezes Cardiovascular exam: PRESENT: RRR. ABSENT: diastolic murmur, rubs, systolic murmur Pulses: PRESENT: normal dorsalis pedis pul Vascular exam: PRESENT: normal capillary refill GI/Abdominal exam: PRESENT: normal bowel sounds, soft. ABSENT: distended, guarding, mass, organolmegaly, rebound, tenderness Rectal exam: PRESENT: deferred Extremities exam: PRESENT: full ROM. ABSENT: calf tenderness, clubbing, pedal edema Neurological exam: PRESENT: alert, altered, awake, oriented to person, CN II- XII grossly intact Psychiatric exam: PRESENT: appropriate affect, normal mood. ABSENT: homicidal ideation, suicidal ideation Skin exam: PRESENT: dry, intact, warm. ABSENT: cyanosis, rash Results Laboratory Results: 05/03/17 04:30 05/05/17 05:00 Impressions: Abdomen/Pelvis CT 05/01/17 12:32 IMPRESSION: 1. 6 cm infrarenal aortic aneurysm. 2. Fecal retention. 3. Cholelithiasis. KUB X-Ray 05/04/17 00:00 IMPRESSION: Persistent large amount of stool in the colon Findings called to Dr. Aldrich Transfer Plan - Disposition Transfer Plan: [facility] - Time Spent with Patient Time spent with patient: Greater than 30 Minutes Plan Time Spent: Greater than 30 Minutes
[2017-05-06 12:39] VITALS: BP 104/65
== END 2017-05-06 14:09 | DRG 439 ==
LOC: ER 11:23 → EH 16:56 → 4N 18:45 → OBSVTOIN 05-02 15:32 → 4N 05-03 15:39
PROVIDERS: ADMIT Internal Medicine; ATTEND Internal Medicine
DX: K85.10 Biliary acute pancreatitis without necrosis or infection (principal); F02.81 Dementia in other diseases classified elsewhere, unspecified severity, with behavioral disturbance; N30.00 Acute cystitis without hematuria; N17.9 Acute kidney failure, unspecified; E44.0 Moderate protein-calorie malnutrition; Z68.1 Body mass index [BMI] 19.9 or less, adult; E87.0 Hyperosmolality and hypernatremia; K85.90 Acute pancreatitis without necrosis or infection, unspecified; N18.2 Chronic kidney disease, stage 2 (mild); E86.0 Dehydration; I12.9 Hypertensive chronic kidney disease with stage 1 through stage 4 chronic kidney disease, or unspecified chronic kidney disease; K59.00 Constipation, unspecified; E78.5 Hyperlipidemia, unspecified; I10 Essential (primary) hypertension; K21.9 Gastro-esophageal reflux disease without esophagitis; M19.90 Unspecified osteoarthritis, unspecified site; G30.9 Alzheimer's disease, unspecified; K02.9 Dental caries, unspecified; I71.4 Abdominal aortic aneurysm, without rupture; Z66 Do not resuscitate; Z79.899 Other long term (current) drug therapy
CPT/HCPCS: 36415; 74000; 74177; 80048; 80053; 80061; 81001; 83690; 83735; 84100; 85025; 85027; 87040; 87086; 96361; 96365; 96372; 99285; G0378; J0696; J1200; J1267; J2060; J2405; J2550; J3490; J7030; S0183

== ENCOUNTER 2017-06-13 09:52 | Emergency (ER) | payer MEDICARE ==
--- NOTE | 2017-06-13 10:22 | ER Document Report ---
ED General - General Chief Complaint: Fever Stated Complaint: FEVER Time Seen by Provider: 06/13/17 10:04 Notes: Patient was brought to the emergency department from her residence at the [facility], for fever. It was noted to be 101.9 at that facility this morning. She was given Tylenol. EMS was called and they noted a temp of 101. They also noted the patient said she had some abdominal pains, indicates upper mid abdomen. Upon arrival at this facility, her temp is 99.8. Patient is comfortable and does not appear to be in pain. Patient denies any other symptoms. She does follow commands appropriately, but is very confused and her answers to questions or not appropriate or helpful. She denies any pain elsewhere than her abdomen. She is not able to provide any other worthwhile history. Patient is a DNR patient. TRAVEL OUTSIDE OF THE [place] IN LAST 30 DAYS: No - Related Data Allergies/Adverse Reactions: No Known Allergies Allergy (Verified 05/01/17 17:41) Past Medical History - Social History Smoking Status: Never Smoker Chew tobacco use (# tins/day): No Frequency of alcohol use: None Drug Abuse: None Lives with: [facility] Family History: Reviewed & Not Pertinent Patient has suicidal ideation: No Patient has homicidal ideation: No - Past Medical History Cardiac Medical History: Reports: Hx Coronary Artery Disease, Hx Hypercholesterolemia, Hx Hypertension, Other - Stents and CABG GI Medical History: Reports: Hx Gastroesophageal Reflux Disease Musculoskeltal Medical History: Reports Hx Arthritis Psychiatric Medical History: Reports: Hx Dementia - Alzheimer's Past Surgical History: Reports: Hx Abdominal Surgery - Immunizations Hx Diphtheria, Pertussis, Tetanus Vaccination: No Review of Systems - Review of Systems -: Yes ROS unobtainable due to patient's medical condition - Dementia, only provides mis-information and inappropriate info Constitutional: Fever Physical Exam - Vital signs Vitals: Pulse Resp 101 H 18 06/13/17 10:01 06/13/17 10:01 Interpretation: Other - Temp 99.3 at triage - Notes Notes: PHYSICAL EXAMINATION: GENERAL: Well-appearing, in no acute distress. Follows verbal commands well. However, conversation is confused and not appropriate. HEAD: Atraumatic, normocephalic. EYES: Pupils equal round and reactive to light, extraocular movements intact. ENT: oropharynx clear without exudates. Tongue appears to be dry. NECK: Normal range of motion, supple. LUNGS: Breath sounds clear and equal bilaterally. HEART: Regular rate and rhythm without murmurs. ABDOMEN: Soft, minor tenderness in the mid abdomen. No guarding and no rebound. No mass felt. No bruit heard. Reviewing patient's records, she has a history of a abdominal aortic aneurysm about 6 cm in size located in the infra-renal area. EXTREMITIES: Normal range of motion without pain. NEUROLOGICAL: Normal speech, normal gait. Normal sensory, motor, and reflex exams. Patient is disoriented to where she is in when it is. SKIN: Warm, dry, no rashes. Course - Re-evaluation Re-evalutation: 06/13/17 19:14 Patient was unable to provide us with a urine specimen. She not only declined to have a Sherman catheter placed, she absolutely refused and said that she would not allow it to happen. I do not see a compelling reason that we have to force this elderly dementia patient to have a catheter placed. She does not have a fever at this time during her stay. Her white cell count is not elevated. I doubt that she has a UTI, but on the possibility that that might be what her fever is due to, I have opted to empirically treat her with a dose of Levaquin for 5 days that would treat a UTI if there does have to be one. I think the risk of inappropriately treating is outweighed by the benefit of making sure this patient does not end up being septic or overwhelming infection. Patient has a very large abdominal aortic aneurysm and is actually scheduled to have a repeat study done on it in 2 days. I do not think there is any indication for doing that study at this time as this patient is probably not going to have anything done with the aneurysm given her mental status and the fact that she is a DNR. This study is being ordered to assess the situation and nothing more. - Vital Signs Vital signs: Temp Pulse Resp BP Pulse Ox 100.0 F 101 H 16 143/78 H 94 06/13/17 18:23 06/13/17 16:00 06/13/17 18:23 06/13/17 16:00 06/13/17 18:23 - Laboratory Result Diagrams: 06/13/17 11:30 06/13/17 11:30 Laboratory results interpreted by me: 06/13/17 06/13/17 11:30 11:30 WBC 10.8 H Hgb 11.4 L Hct 34.4 L RDW 14.6 H Seg Neutrophils % 82.7 H Lymphocytes % 8.6 L Absolute Neutrophils 8.9 H BUN 26 H Creatinine 1.58 H Est GFR ( Amer) 38 L Est GFR (Non-Af Amer) 32 L Glucose 133 H AST 38 H Alkaline Phosphatase 170 H Discharge - Discharge Clinical Impression: Fever Condition: Stable Disposition: HOME, SELF-CARE Additional Instructions: FEVER: Fever is the body's reaction to infection. Fever can also occur with illnesses that create fever-producing substances in the body. By itself, fever is not harmful. It helps the body fight invading germs. We are more concerned with: (1) What's causing the fever? (2) How can we keep you more comfortable until the fever goes away? Early in an illness, symptoms are often so vague that a diagnosis can't be made. If the doctor hasn't identified a clear cause for your fever, you will probably develop new symptoms within the next two days. Contact the doctor if you develop severe worsening headache, rash, chest pain, cough with yellow or green sputum, difficulty breathing, abdominal pain, or other new symptoms. There is no reason to treat a fever if you're comfortable. If the fever is causing aches, headache, and fatigue, you can treat it with ibuprofen (Advil , Nuprin, etc) or acetaminophen (Tylenol). Follow the directions on the bottle. Get plenty of liquids (three quarts per day). Rest. Physical work or sports will raise the temperature higher and make you feel much worse. Dress lightly. If you're chilling, this means the temperature is trying to go higher. Take ibuprofen or acetaminophen. When you feel sweaty and "feverish" the temperature is coming down. If the fever doesn't go away within two days or if you become more ill, call the doctor or return at once for re-examination. Except for a urine test which you could not provide us, you had a NORMAL EXAM AND WORKUP: At this time, with the exception of fever, your examination and workup show no significant abnormality. No significant abnormal physical findings were noted. All laboratory, EKG, and imaging (x-ray, CT scans, ultrasound) studies that were ordered show no significant abnormality. Although your examination and all studies that were ordered showed no significant abnormal finding, there are no examinations and no studies that are 100% accurate. There is always the possibility that some abnormality could exist and not be detected with physical examination or within the limits and capabilities of laboratory and other studies. You should return or follow up as you were instructed on your visit today for further evaluation if your symptoms do not resolve. You could possibly have a URINARY TRACT INFECTION: This is due to germs growing in the bladder. This is a common problem. This infection usually responds quickly to antibiotics. Your antibiotic should be taken exactly as prescribed. Drink plenty of fluids -- three to four quarts a day. Occasionally, a bladder anesthetic will be prescribed to help stop the feeling of urgency until the antibiotic has a chance to clear the infection. This may cause your urine to be dark orange. Certain urine infections require a culture. If the doctor obtained a culture, the results will be back in two days. You should call to see if a change in treatment is needed. A repeat urinalysis after you finish treatment is often recommended. The physician will let you know if further testing is required. Call the doctor if you develop fever, chills, flank pain, inability to urinate, or blood in the urine. ANTIBIOTIC THERAPY: You have been given an antibiotic prescription. It's important that you take all the medication, unless instructed otherwise by your physician. Failure to complete the entire course can result in relapse of your condition. Common side effects of antibiotics include nausea, intestinal cramping, or diarrhea. Women may develop vaginal yeast infections, and babies can get yeast (thrush) in the mouth following the use of antibiotics. Contact your physician if you develop significant side effects from this medication. Allergy to this antibiotic can result in hives, wheezing, faintness, or itching. If symptoms of allergy occur, stop the medication and call the doctor. LEVOFLOXACIN: You have been given an antibacterial agent, levofloxacin (Levaquin). This medicine is not related to the penicillins, sulfas, cephalosporins, or tetracyclines. It is often given to patients who are allergic to these drugs. It has been chosen for you either because other drugs are not appropriate, or because of the nature of your problem. Levaquin should not be taken with antacids, as these can decrease its effectiveness. It can be taken without regard to meals. LEVAQUIN SHOULD NOT BE TAKEN BY CHILDREN, NURSING WOMEN, OR WOMEN. Although Levaquin is usually well-tolerated, common side effects can include nausea and diarrhea. Contact your doctor if you experience any unusual symptoms while on this medication, such as joint pain or swelling, shortness of breath, wheezing, faintness, or hives. USE OF ACETAMINOPHEN (Tylenol): Acetaminophen may be taken for pain relief or fever control. It's much safer than aspirin, offering a wider range of "safe" dosages. It is safe during . Some brand names are Tylenol, Panadol, Datril, Anacin 3, Tempra, and Liquiprin. Acetaminophen can be repeated every four hours. The following are maximum recommended dosages: WEIGHT Dose Drops Elixir Chewable( 80mg) (LBS.) drprs=droppers tsp=teaspoon >89 pounds or adults 650 mg to 900 mg Acetaminophen can be repeated every four hours. Maximum dose not to exceed 4000 mg a day. These maximum recommended dosages are slightly higher than the dosages written on the product container, but these dosages are very safe and below the toxic dosage for acetaminophen. FOLLOW-UP CARE: If you have been referred to a physician for follow-up care, call the physician s office for an appointment as you were instructed or within the next two days. If you experience worsening or a significant change in your symptoms, notify the physician immediately or return to the Emergency Department at any time for re-evaluation. Prescriptions: Levofloxacin [Levaquin 750 mg Tablet] 750 mg PO DAILY #4 tablet Referrals: NISREEN RODRIGEZ MD [Primary Care Provider] - Follow up as needed
--- NOTE | 2017-06-13 11:28 | RADIOLOGY REPORT (SQ) ---
EXAM DESCRIPTION: CHEST PA/LAT COMPLETED DATE/TIME: 06/13/2017 11:15 am REASON FOR STUDY: Fever COMPARISON: None. EXAM PARAMETERS: NUMBER OF VIEWS: two views TECHNIQUE: Digital Frontal and Lateral radiographic views of the chest acquired. RADIATION DOSE: NA LIMITATIONS: none FINDINGS: LUNGS AND PLEURA: No opacities, masses or pneumothorax. No pleural effusion. MEDIASTINUM AND HILAR STRUCTURES: No masses or contour abnormalities. HEART AND VASCULAR STRUCTURES: Heart normal size. No evidence for failure. BONES: No acute findings. HARDWARE: None in the chest. OTHER: No other significant finding. IMPRESSION: NO SIGNIFICANT RADIOGRAPHIC FINDING IN THE CHEST. TECHNICAL DOCUMENTATION: JOB ID: [id number] [employer]- All Rights Reserved
[2017-06-13 11:42] LABS: ABSOLUTE BASOPHILS # (AUTO) 0.1 10^3/uL (0.0-0.2); ABSOLUTE LYMPHOCYTES (AUTO) 0.9 10^3/uL (0.5-4.7); ABSOLUTE MONOCYTES (AUTO) 0.8 10^3/uL (0.1-1.4); ABSOLUTE NEUT (AUTO) 8.9 10^3/uL (1.7-8.2); BASOPHILS % (AUTO) 1.1 % (0-2); EOSINOPHILS % (AUTO) 0.1 % (0-6); HEMATOCRIT 34.4 % (36.0-47.0); HEMOGLOBIN 11.4 g/dL (12.0-15.5); HGB HCT DIFFERENCE -0.2; LYMPHOCYTES % (AUTO) 8.6 % (13-45); MEAN CORPUSCULAR HEMOGLOBIN 30.8 pg (27.0-33.4); MEAN CORPUSCULAR HGB CONC 33.2 g/dL (32.0-36.0); MEAN CORPUSCULAR VOLUME 93 fl (80-97); MONOCYTES % (AUTO) 7.5 % (3-13); RED BLOOD COUNT 3.72 10^6/uL (3.72-5.28); RED CELL DISTRIBUTION WIDTH 14.6 % (11.5-14.0); SEGMENTED NEUTROPHILS % (AUTO) 82.7 % (42-78); WHITE BLOOD COUNT 10.8 10^3/uL (4.0-10.5)
[2017-06-13 12:05] LABS: ALANINE AMINOTRANSFERASE 27 U/L (9-52); ALKALINE PHOSPHATASE 170 U/L (38-126); ANION GAP 13 (5-19); ASPARTATE AMINO TRANSFERASE 38 U/L (14-36); BILIRUBIN,DIRECT 0.4 mg/dL (0.0-0.4); BILIRUBIN,TOTAL 0.9 mg/dL (0.2-1.3); BLOOD UREA NITROGEN 26 mg/dL (7-20); CALCIUM 9.6 mg/dL (8.4-10.2); CARBON DIOXIDE 27 mmol/L (22-30); CHLORIDE 102 mmol/L (98-107); CREATININE RESULT 1.58 mg/dL (0.52-1.25); GLUCOSE 133 mg/dL (75-110); LIPASE 141.8 U/L (23-300); POTASSIUM 4.2 mmol/L (3.6-5.0); SODIUM 141.7 mmol/L (137-145); TOTAL PROTEIN 8.1 g/dL (6.3-8.2)
[2017-06-13] MEDS ORDERED: LEVOFLOXACIN 750 MG TABLET PO ONE (16:25)
[2017-06-13 16:30] VITALS: BP 143/78
== END 2017-06-13 18:30 | disposition home or self-care (01) ==
LOC: ER 09:52
DX: R50.9 Fever, unspecified (principal); R10.10 Upper abdominal pain, unspecified
CPT/HCPCS: 99285; 36415; 87040; 83690; 85025; 80053; 71020; A9270

== ENCOUNTER → 2017-06-15 | Outpatient (CLI) | payer MEDICARE ==
--- NOTE | 2017-06-15 11:24 | RADIOLOGY REPORT (SQ) ---
EXAM DESCRIPTION: CT ABD/PELVIS NO ORAL OR IV COMPLETED DATE/TIME: 06/15/2017 10:38 am REASON FOR STUDY: I71.4 ABDOMINAL AORTIC ANEURYSM, WITHOUT RUPTURE I71.4 ABDOMINAL AORTIC ANEURYSM, WITHOUT RUPTURE COMPARISON: 05/01/2017. TECHNIQUE: CT scan of the abdomen and pelvis performed without intravenous or oral contrast. Images reviewed with lung, soft tissue, and bone windows. Reconstructed coronal and sagittal MPR images revi ewed. All images stored on PACS. All CT scanners at this facility use dose modulation, iterative reconstruction, and/or weight based d osing when appropriate to reduce radiation dose to as low as reasonably achievable (ALARA). [facility]: Dose Right [facility]: CareDose [facility]: Dose Right [facility]: Teradose 4D [facility]: [employer] RADIATION DOSE: CT Rad equipment meets quality standard of care and radiation dose reduction techniq ues were employed. CTDIvol: 2.5 mGy. DLP: 122 mGy-cm.mGy. LIMITATIONS: None. FINDINGS: LOWER CHEST: No significant findings. No nodules or infiltrates. NON-CONTRASTED LIVER, SPLEEN, ADRENALS: Evaluation limited by lack of IV contrast. No identified sign ificant masses. PANCREAS: No masses. No peripancreatic inflammatory changes. GALLBLADDER: Gallstones. No inflammatory changes to suggest cholecystitis. RIGHT KIDNEY AND URETER: No suspicious masses. Assessment limited by lack of IV contrast. No signif icant calcifications. No hydronephrosis or hydroureter. LEFT KIDNEY AND URETER: No suspicious masses. Assessment limited by lack of IV contrast. No signifi cant calcifications. No hydronephrosis or hydroureter. AORTA AND RETROPERITONEUM: Ectatic aorta. Infrarenal abdominal aortic aneurysm with maximum transver se measurement of 6 cm, unchanged. Heterogenous appearance along the periphery secondary to mural th rombus. No retroperitoneal masses or adenopathy. BOWEL AND PERITONEAL CAVITY: Large amount of stool throughout the colon and rectum. Significant dist ention of the rectum with stool, displacing the bladder anteriorly. No obvious masses or inflammator y changes. No free fluid. APPENDIX: Not visualized. PELVIS, BLADDER, AND ABDOMINAL WALL:Again seen are midline surgical clips in the lower abdominal wall . No abnormal masses. No free fluid. Bladder normal. BONES: No significant findings. Chronic changes in the spine with compression deformity of L1, uncha nged. OTHER: No other significant finding. IMPRESSION: 1. INFRARENAL ABDOMINAL AORTIC ANEURYSM WITH TRANSVERSE DIAMETER OF 6.0 CM. PRIOR MEASUREMENT WAS 5. 8 CM. 2. LARGE AMOUNT OF STOOL THROUGHOUT THE COLON. THE RECTUM IS MARKEDLY DISTENDED WITH STOOL, DISPLACI NG THE BLADDER ANTERIORLY. THIS MAY REPRESENT A FECAL IMPACTION. 3. GALLSTONES. 4. NO OTHER SIGNIFICANT OR ACUTE PROCESS IN THE ABDOMEN OR PELVIS. COMMENT: The original order was for CTA abdomen pelvis with endograft protocol. The patient's curre nt creatinine is 2.3. Prior measurement on 05/01/2017 was 1.3. Due to decline in renal function, co ntrast was not given. Quality ID # [id number]: Final reports with documentation of one or more dose reduction techniques (e.g., Au tomated exposure control, adjustment of the mA and/or kV according to patient size, use of iterative reconstruction technique) TECHNICAL DOCUMENTATION: JOB ID: [id number] [employer]- All Rights Reserved
== END ==
LOC: RAD 09:45
PROVIDERS: ATTEND Surgery Vascular Surgery
DX: I71.4 Abdominal aortic aneurysm, without rupture (principal)
CPT/HCPCS: 74176; 82565

== ENCOUNTER → 2017-06-28 | Outpatient (CLI) | payer MEDICARE ==
[2017-06-28 09:45] LABS: ANION GAP 12 (5-19); BLOOD UREA NITROGEN 23 mg/dL (7-20); CALCIUM 9.8 mg/dL (8.4-10.2); CARBON DIOXIDE 28 mmol/L (22-30); CHLORIDE 105 mmol/L (98-107); GLUCOSE 126 mg/dL (75-110); POTASSIUM 4.2 mmol/L (3.6-5.0); SODIUM 144.9 mmol/L (137-145)
== END ==
LOC: OD 08:54
PROVIDERS: ATTEND Physician Assistant Surgical
DX: Z01.812 Encounter for preprocedural laboratory examination (principal); I70.90 Unspecified atherosclerosis; I10 Essential (primary) hypertension
CPT/HCPCS: 36415; 80048

== ENCOUNTER 2017-07-01 22:50 | Emergency (ER) | payer MEDICARE ==
--- NOTE | 2017-07-01 23:11 | ER Document Report ---
ED General - General Stated Complaint: FALL/ ANKLE PAIN Time Seen by Provider: 07/01/17 22:55 Notes: 77-year-old lady with Alzheimer's presents with left ankle pain bruising and swelling first noticed today, but likely sustained 2 days ago after she fell off a couch. She has been walking but limping at her facility. She denies hip pain or knee pain on that side. She is at her neurologic baseline. TRAVEL OUTSIDE OF THE [place] IN LAST 30 DAYS: No - Related Data Allergies/Adverse Reactions: No Known Allergies Allergy (Verified 05/01/17 17:41) Past Medical History - General Cannot obtain history due to: Dementia - Social History Smoking Status: Former Smoker Family History: Reviewed & Not Pertinent - Past Medical History Cardiac Medical History: Reports: Hx Coronary Artery Disease, Hx Hypercholesterolemia, Hx Hypertension Renal/ Medical History: Denies: Hx Peritoneal Dialysis GI Medical History: Reports: Hx Gastroesophageal Reflux Disease Musculoskeltal Medical History: Reports Hx Arthritis Psychiatric Medical History: Reports: Hx Dementia - Alzheimer's Past Surgical History: Reports: Hx Abdominal Surgery - Immunizations Hx Diphtheria, Pertussis, Tetanus Vaccination: No Review of Systems - Review of Systems Notes: REVIEW OF SYSTEMS Not obtained secondary to dementia PHYSICAL EXAMINATION General: No acute distress, well-nourished Head: Atraumatic, normocephalic ENT: Mouth normal, oropharynx moist, no exudates or tonsillar enlargement Eyes: Conjunctiva normal, pupils equal, lids normal Neck: No JVD, supple, no guarding CVS: Normal rate, regular rhythm, no murmurs Resp: No resp distress, equal and normal breath sounds bilaterally GI: Nondistended, soft, no tenderness to palpation, no rebound or guarding Ext: Edema and tenderness on the lateral malleolar area with ecchymosis. Minimal medial sided tenderness but no edema. Knee and hip are normal on the left. Back: No CVA or midline TTP Skin: No rash, warm Lymphatic: No lymphadeopathy noted Neuro: Awake, alert. Face symmetric. GCS 15. -: Yes ROS unobtainable due to patient's medical condition Course - Re-evaluation Re-evalutation: 07/01/17 23:11 Left ankle pain and swelling in a demented patient. She is ambulatory however it is certainly possible she still has a fracture given that she is demented. This is likely sustained an injury 2 days ago. I see no other signs of injury and she is at her baseline neurologically. X-rays have been ordered. 07/01/17 23:55 X-ray negative. Clarke wrap weightbearing as tolerated. I have discussed with the patient there likely diagnosis, aftercare plan, follow-up plans and my usual and customary return precautions. They verbalized understanding of this. - Diagnostic Test Radiology reviewed: Image reviewed, Reports reviewed Discharge - Discharge Clinical Impression: Left ankle sprain Qualifiers: Encounter type: initial encounter Involved ligament of ankle: anterior talofibular ligament Qualified Code(s): S93.492A - Sprain of other ligament of left ankle, initial encounter Condition: Good Disposition: HOME, SELF-CARE Instructions: Sprained Ankle (ON LICENSE OF [facility]), Ice Packs (ON LICENSE OF [facility])
--- NOTE | 2017-07-02 08:01 | RADIOLOGY REPORT (SQ) ---
EXAM DESCRIPTION: ANKLE LEFT AP/LATERAL COMPLETED DATE/TIME: 07/02/2017 12:03 am REASON FOR STUDY: lat swelling COMPARISON: None. NUMBER OF VIEWS: Two views. TECHNIQUE: AP and lateral radiographic images acquired of the left ankle. LIMITATIONS: None. FINDINGS: MINERALIZATION: Normal. BONES: There is evidence of a linear bony density adjacent to base of the talus laterally at the edward ofibular joint. The possibility of a small avulsion fracture cannot be excluded. Follow-up with obl ique views could be useful if indicated JOINTS: No effusions. SOFT TISSUES: Soft tissue swelling medially and laterally. Changes of an ankle effusion. . OTHER: No other significant finding. IMPRESSION: Soft tissue swelling left ankle with left ankle effusion. Suspect avulsion fracture at talofibular joint. Oblique views could be useful. TECHNICAL DOCUMENTATION: JOB ID: [id number] [employer]- All Rights Reserved
== END 2017-07-02 00:35 | disposition home or self-care (01) ==
LOC: ER 22:50
DX: S93.492A Sprain of other ligament of left ankle, initial encounter (principal); X58.XXXA Exposure to other specified factors, initial encounter; I25.10 Atherosclerotic heart disease of native coronary artery without angina pectoris; I10 Essential (primary) hypertension; F03.90 Unspecified dementia, unspecified severity, without behavioral disturbance, psychotic disturbance, mood disturbance, and anxiety; Z87.891 Personal history of nicotine dependence
CPT/HCPCS: 99283

== ENCOUNTER 2017-07-15 09:36 | Observation (INO) | payer MEDICARE ==
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
[2017-07-15 12:12] LABS: ABSOLUTE BASOPHILS # (AUTO) 0.1 10^3/uL (0.0-0.2); ABSOLUTE EOSINOPHILS # (AUTO) 0.1 10^3/uL (0.0-0.6); ABSOLUTE LYMPHOCYTES (AUTO) 1.4 10^3/uL (0.5-4.7); ABSOLUTE MONOCYTES (AUTO) 0.5 10^3/uL (0.1-1.4); ABSOLUTE NEUT (AUTO) 4.5 10^3/uL (1.7-8.2); BASOPHILS % (AUTO) 0.9 % (0-2); EOSINOPHILS % (AUTO) 1.1 % (0-6); HEMATOCRIT 34.5 % (36.0-47.0); HEMOGLOBIN 11.3 g/dL (12.0-15.5); LYMPHOCYTES % (AUTO) 21.8 % (13-45); MEAN CORPUSCULAR HEMOGLOBIN 30.3 pg (27.0-33.4); MEAN CORPUSCULAR HGB CONC 32.9 g/dL (32.0-36.0); MEAN CORPUSCULAR VOLUME 92 fl (80-97); MONOCYTES % (AUTO) 7.3 % (3-13); PLATELET COUNT 176 10^3/uL (150-450); RED BLOOD COUNT 3.75 10^6/uL (3.72-5.28); RED CELL DISTRIBUTION WIDTH 14.5 % (11.5-14.0); SEGMENTED NEUTROPHILS % (AUTO) 68.9 % (42-78); TOTAL CELLS COUNTED % (AUTO) 100 %; WHITE BLOOD COUNT 6.6 10^3/uL (4.0-10.5)
[2017-07-15 12:16] LABS: ALANINE AMINOTRANSFERASE 15 U/L (9-52); ALBUMIN 3.7 g/dL (3.5-5.0); ALKALINE PHOSPHATASE 101 U/L (38-126); ANION GAP 8 (5-19); ASPARTATE AMINO TRANSFERASE 25 U/L (14-36); BILIRUBIN,DIRECT 0.3 mg/dL (0.0-0.4); BILIRUBIN,TOTAL 0.6 mg/dL (0.2-1.3); BLOOD UREA NITROGEN 20 mg/dL (7-20); CALCIUM 9.5 mg/dL (8.4-10.2); CARBON DIOXIDE 27 mmol/L (22-30); CHLORIDE 107 mmol/L (98-107); GLUCOSE 100 mg/dL (75-110); LIPASE 188.6 U/L (23-300); SODIUM 142.1 mmol/L (137-145); TOTAL PROTEIN 7.4 g/dL (6.3-8.2)
[2017-07-15] MEDS ORDERED: HALOPERIDOL LACTATE INJ 5 MG/1 ML VIAL IV ONE (13:06)
[2017-07-15] MEDS ORDERED: NORMAL SALINE 1000 ML 1,000 ML IV ONE (14:25)
--- NOTE | 2017-07-15 14:44 | RADIOLOGY REPORT (SQ) ---
EXAM DESCRIPTION: CT ABD/PELVIS WITH IV ONLY COMPLETED DATE/TIME: 07/15/2017 2:10 pm REASON FOR STUDY: lower abdominal pain, h/o AAA, recent laparoscopic COMPARISON: CT abdomen and pelvis 06/15/2017. TECHNIQUE: CT scan of the abdomen and pelvis performed using helical scanning technique with dynamic intravenous contrast injection. No oral contrast. Images reviewed with lung, soft tissue, and bone windows. Reconstructed coronal and sagittal MPR images reviewed. Delayed images for evaluation of the urinary system also acquired. All images stored on PACS. All CT scanners at this facility use dose modulation, iterative reconstruction, and/or weight based d osing when appropriate to reduce radiation dose to as low as reasonably achievable (ALARA). [facility]: Dose Right [facility]: CareDose [facility]: Dose Right [facility]: Teradose 4D [facility]: Red Loop Media CONTRAST TYPE AND DOSE: contrast/concentration: Isovue mg/ml; Total Contrast Delivered: 53.0 ml; To edward Saline Delivered: 62.0 ml RENAL FUNCTION: Creatinine 1.28. RADIATION DOSE: CT Rad equipment meets quality standard of care and radiation dose reduction techniq ues were employed. CTDIvol: 4.8 - 5.5 mGy. DLP: 534 mGy-cm.. LIMITATIONS: None. FINDINGS: LOWER CHEST: Mild atelectasis at the lung bases. No pleural effusion. There is a moderat e hiatal hernia. LIVER: Normal size. No masses. Mild intrahepatic biliary ductal dilation. SPLEEN: Normal size. PANCREAS: No significant calcifications. No adjacent inflammation or peripancreatic fluid collections . Pancreatic duct not dilated. GALLBLADDER: The gallbladder is distended. There is cholelithiasis. ADRENAL GLANDS: No significant masses or asymmetry. RIGHT KIDNEY AND URETER: No solid masses. No significant calcifications. Interval development of severe hydronephrosis and dilation of the right ureter. LEFT KIDNEY AND URETER: No solid masses. No significant calcifications. No hydronephrosis or hydr oureter. AORTA AND VESSELS: Tortuous thoracic aorta with the infrarenal abdominal aortic aneurysm measuring 6. 1 (AP) x 6.1 (transverse) x 6.5 (craniocaudal) cm with the large intraluminal thrombus, previously me asure 6.0 cm. Atherosclerotic calcifications throughout the abdominal aorta and its branches. RETROPERITONEUM: No retroperitoneal adenopathy, hemorrhage or masses. BOWEL AND PERITONEAL CAVITY: No dilated small bowel loops. Large amount of stool throughout the colo n. Large stool ball at the rectosigmoid colon. APPENDIX: Not visualized. PELVIS: The urinary bladder is distended. The urinary bladder is displaced anteriorly and superiorly by the distended rectosigmoid colon. No pelvic mass. No free fluid. ABDOMINAL WALL: Suture material is noted within the anterior abdominal wall. Mild soft tissue strand ing at the right inguinal region, may be secondary to recent procedure. BONES: Multilevel degenerative changes in the spine. IMPRESSION: 1. 6.1 cm infrarenal abdominal aortic aneurysm, previously measures 6.0 cm. Vascular s urgery consultation recommended. 2. Large amount of stool throughout the colon with a large stool ball at the rectosigmoid colon, sugg estive of severe constipation/fecal impaction. 3. Interval development of severe right-sided hydroureteronephrosis, probably due to the mass effect from the above findings. 4. Distended urinary bladder, displaced by the distended rectosigmoid colon. 5. Distended gallbladder with cholelithiasis. Mild intrahepatic biliary ductal dilation. Please cor relate with laboratory values and clinical concern for acute cholecystitis. 6. Moderate hiatal hernia. TECHNICAL DOCUMENTATION: JOB ID: [id number] Quality ID # [id number]: Final reports with documentation of one or more dose reduction techniques (e.g., Au tomated exposure control, adjustment of the mA and/or kV according to patient size, use of iterative reconstruction technique) 2010 [employer]- All Rights Reserved
[2017-07-15] MEDS ORDERED: METOCLOPRAMIDE HCL INJ/PF 10 MG/2 ML SDV IV ONE (18:06)
[2017-07-15] MEDS ORDERED: MAGNESIUM HYDROXIDE SUSP 30 ML UDCUP PO PRN (21:41)
[2017-07-15] MEDS ORDERED: ACETAMINOPHEN 325 MG TABLET PO PRN (21:41)
[2017-07-15] MEDS ORDERED: ZOLPIDEM TARTRATE 5 MG TABLET PO PRN (21:41)
[2017-07-15] MEDS ORDERED: QUETIAPINE FUMARATE 25 MG TABLET PO SCH (22:00)
--- NOTE | 2017-07-15 22:13 | PDOC H&P ---
History of Present Illness Admission Date/PCP: 07/15/17 19:37 NISREEN RODRIGEZ MD Patient complains of: Abdominal pain History of Present Illness: SHAHBAZ ROSA is a 77 year old female with known 6 cm abdominal aortic aneurysm developed abdominal pain. She was sent to our emergency room for evaluation. CT revealed her to be obstipated with pressure on the ureter causing hydronephrosis. There was no evidence of leakage from the aneurysm. Patient is admitted for disimpaction. Past Medical History Cardiac Medical History: Reports: Coronary Artery Disease, Hyperlipidema, Hypertension GI Medical History: Reports: Gastroesophageal Reflux Disease Musculoskeltal Medical History: Reports: Arthritis Psychiatric Medical History: Reports: Dementia - Alzheimer's Past Surgical History Past Surgical History: Reports: None Social History Information Source: Patient Lives with: [facility] Smoking Status: Unknown if Ever Smoked Frequency of Alcohol Use: None Hx Recreational Drug Use: No Drugs: None Hx Prescription Drug Abuse: No - Advance Directive Resuscitation Status: Do Not Resuscitate Surrogate healthcare decision maker:: Patient has a legal guardian Family History Family History: Reviewed & Not Pertinent, Other - Patient suffers from dementia Parental Family History Reviewed: No Children Family History Reviewed: No Sibling(s) Family History Reviewed.: No Medication/Allergy Home Medications: Atorvastatin Calcium [Lipitor 10 mg Tablet] 10 mg PO QHS 05/01/17 Metoprolol Succinate [Toprol Xl 25 mg Tab.sr] 12.5 mg PO DAILY 05/01/17 Omeprazole 40 mg PO Q6AM 05/01/17 Quetiapine Fumarate [Seroquel] 50 mg PO QHS 05/01/17 Docusate Sodium [Colace 100 mg Capsule] 100 mg PO DAILY capsule 05/06/17 Polyethylene Glycol 3350 [Miralax Powder 17 gm/Packet] 17 gm PO DAILY powd.pack 05/06/17 Levofloxacin [Levaquin 750 mg Tablet] 750 mg PO DAILY #4 tablet 06/13/17 Allergies/Adverse Reactions: No Known Allergies Allergy (Verified 07/15/17 10:16) Review of Systems All systems: reviewed and no additional remarkable complaints except as stated Gastrointestinal: PRESENT: abdominal pain Physical Exam Vital Signs: Temp Pulse Resp BP Pulse Ox 97.6 F 54 L 16 119/56 L 96 07/15/17 18:11 07/15/17 18:11 07/15/17 18:11 07/15/17 18:11 07/15/17 18:11 General appearance: PRESENT: no acute distress, cooperative, thin Head exam: PRESENT: atraumatic, normocephalic Eye exam: PRESENT: EOMI, PERRLA Ear exam: PRESENT: normal external ear exam Neck exam: ABSENT: carotid bruit, JVD, lymphadenopathy, thyromegaly Respiratory exam: PRESENT: clear to auscultation kenn. ABSENT: rales, rhonchi, wheezes Cardiovascular exam: PRESENT: RRR. ABSENT: diastolic murmur, rubs, systolic murmur GI/Abdominal exam: PRESENT: normal bowel sounds, soft. ABSENT: distended, guarding, mass, organolmegaly, rebound, tenderness Rectal exam: PRESENT: deferred Extremities exam: PRESENT: full ROM. ABSENT: calf tenderness, clubbing, pedal edema Neurological exam: PRESENT: alert, awake, oriented to person, CN II-XII grossly intact. ABSENT: motor sensory deficit Psychiatric exam: PRESENT: appropriate affect, normal mood Focused psych exam: PRESENT: paranoid Skin exam: PRESENT: dry, intact, warm. ABSENT: cyanosis, rash Results Laboratory Results: 07/15/17 07/15/17 07/15/17 09:50 11:42 11:42 WBC 6.6 Hgb 11.3 L Hct 34.5 L Plt Count 176 Sodium 142.1 Potassium 4.0 BUN 20 Creatinine 1.33 H Glucose 100 Calcium 9.5 Albumin 3.7 Lipase 188.6 Stool Occult Blood NEGATIVE Impressions: Abdomen/Pelvis CT 07/15/17 10:02 IMPRESSION: 1. 6.1 cm infrarenal abdominal aortic aneurysm, previously measures 6.0 cm. Vascular surgery consultation recommended. 2. Large amount of stool throughout the colon with a large stool ball at the rectosigmoid colon, suggestive of severe constipation/fecal impaction. 3. Interval development of severe right-sided hydroureteronephrosis, probably due to the mass effect from the above findings. 4. Distended urinary bladder, displaced by the distended rectosigmoid colon. 5. Distended gallbladder with cholelithiasis. Mild intrahepatic biliary ductal dilation. Please correlate with laboratory values and clinical concern for acute cholecystitis. 6. Moderate hiatal hernia. Assessment & Plan - Diagnosis (1) DNR (do not resuscitate) Is this a current diagnosis for this admission?: Yes (2) Fecal impaction in rectum Is this a current diagnosis for this admission?: Yes (3) Dementia Qualifiers: Dementia type: unspecified type Dementia behavioral disturbance: with behavioral disturbance Qualified Code(s): F03.91 - Unspecified dementia with behavioral disturbance Is this a current diagnosis for this admission?: Yes (4) Hydroureteronephrosis Is this a current diagnosis for this admission?: Yes (5) AAA (abdominal aortic aneurysm) without rupture Is this a current diagnosis for this admission?: Yes - Time Time Spent: 30 to 50 Minutes - Plan Summary Plan Summary: Patient will be placed in observation and given laxatives and enemas. Surgery has been consulted for manual disimpaction should this prove necessary. Patient 's DNR will be honored.
[2017-07-15] MEDS: LACTULOSE SYRUP 20 GM/30 ML UDCUP PO SCH (23:43)
[2017-07-15] MEDS: FAMOTIDINE 20 MG TABLET PO SCH (23:44)
[2017-07-16] MEDS: LACTULOSE SYRUP 20 GM/30 ML UDCUP PO SCH ×2 (06:20→11:18)
[2017-07-16 08:15] VITALS: BP 128/86
[2017-07-16] MEDS: FAMOTIDINE 20 MG TABLET PO SCH (09:17)
[2017-07-16] MEDS ORDERED: ENOXAPARIN SODIUM INJ 30 MG/0.3 ML DISP.SYRIN SUBCUT SCH (10:00)
--- NOTE | 2017-07-16 12:26 | Progress Note ---
Provider Note Provider Note: Consulted for fecal disimpaction. Patient has had multiple BM's overnight. She refuses to allow a rectal exam. This is the 2nd visit that she has refused examination. With patient having BM's I doubt that she needs futher help with elimination. Surgey will sign off.
[2017-07-16] MEDS ORDERED: BISACODYL 5 MG TABEC PO ONE (14:30)
[2017-07-16] MEDS ORDERED: SORBITOL 70% SOLUTION 30 ML UDC PO ONE (14:30)
--- NOTE | 2017-07-16 15:57 | PDOC TRANSFER SUMMARY ---
General - Admit/Disc Date/PCP Admission Date/Primary Care Provider: 07/15/17 19:37 NISREEN RODRIGEZ MD Discharge Date: 07/16/17 - Discharge Diagnosis (2) Dementia Is this a current diagnosis for this admission?: Yes (3) Fecal impaction in rectum Is this a current diagnosis for this admission?: Yes (4) Hydroureteronephrosis Is this a current diagnosis for this admission?: Yes - Additional Information Resuscitation Status: Do Not Resuscitate Discharge Diet: As Tolerated Discharge Activity: Activity As Tolerated Home Medications: Acetaminophen [Non-Aspirin] 2 tab PO Q4HP PRN 07/16/17 Aspirin [Aspirin EC] 81 mg PO DAILY 07/16/17 Atorvastatin Calcium 10 mg PO DAILY 07/16/17 Cyanocobalamin (Vitamin B-12) [Vitamin B-12] 1,000 mcg PO DAILY 07/16/17 Docusate Sodium 100 mg PO BID 07/16/17 Fluticasone Propionate [Flonase Nasal Boston 50 Mcg/Boston 16 gm] 2 sprays NASL DAILY 07/16/17 Guaifenesin [Robafen] 10 ml PO Q4HP PRN 07/16/17 Haloperidol [Haldol 0.5 mg Tablet] 0.5 mg PO Q6HP PRN 07/16/17 Magnesium Hydroxide [Milk of Magnesia 30 ml Udcup] 30 ml PO DAILYP PRN 07/16/17 Metoprolol Succinate [Toprol Xl] 12.5 mg PO DAILY 07/16/17 Nitroglycerin [Nitrostat] 0.4 mg SL Q5M PRN 07/16/17 Omeprazole 40 mg PO DAILY 07/16/17 Polyethylene Glycol 3350 [Miralax Powder 17 gm/Packet] 1 packet PO DAILY Quetiapine Fumarate [Seroquel] 50 mg PO QHS 07/16/17 Sennosides [Senna Lax] 2 tab PO QHS 07/16/17 Thiamine Mononitrate (Vit B1) [Vitamin B-1] 100 mg PO DAILY 07/16/17 History of Present Illness Admission Date/PCP: 07/15/17 19:37 NISREEN RODRIGEZ MD History of Present Illness: SHAHBAZ ROSA is a 77 year old female with known 6 cm abdominal aortic aneurysm developed abdominal pain. She was sent to our emergency room for evaluation. CT revealed her to be obstipated with pressure on the ureter causing hydronephrosis. There was no evidence of leakage from the aneurysm. Patient is admitted for disimpaction. Hospital Course Hospital Course: Patient was admitted. Patient was started on IV fluids and Reglan. Patient was given an enema. Patient was then started on lactulose. Patient has since had multiple bowel movements. Surgery was consulted to disimpact patient however patient was already having multiple bowel movements also she refused to be examined in that way. Patient states she feels much better now today after having had multiple bowel movements. Please note that patient dementia, hydroureteronephrosis and abdominal aortic aneurysm. At this time patient is ready to return back to her facility. Physical Exam Vital Signs: Temp Pulse Resp BP Pulse Ox 98.9 F 89 16 128/86 H 98 07/16/17 07:39 07/16/17 07:39 07/16/17 07:39 07/16/17 07:39 07/16/17 07:39 Intake & Output 07/15/17 07/16/17 07/17/17 06:59 06:59 06:59 Intake Total 0 578 Output Total 100 Balance -100 578 Weight 49.4 kg Results Laboratory Results: 07/15/17 07/15/17 07/15/17 09:50 11:42 11:42 WBC 6.6 RBC 3.75 Hgb 11.3 L Hct 34.5 L MCV 92 MCH 30.3 MCHC 32.9 RDW 14.5 H Plt Count 176 Seg Neutrophils % 68.9 Lymphocytes % 21.8 Monocytes % 7.3 Eosinophils % 1.1 Basophils % 0.9 Absolute Neutrophils 4.5 Absolute Lymphocytes 1.4 Absolute Monocytes 0.5 Absolute Eosinophils 0.1 Absolute Basophils 0.1 Sodium 142.1 Potassium 4.0 Chloride 107 Carbon Dioxide 27 Anion Gap 8 BUN 20 Creatinine 1.33 H Est GFR ( Amer) 47 L Est GFR (Non-Af Amer) 39 L Glucose 100 Calcium 9.5 Total Bilirubin 0.6 Direct Bilirubin 0.3 AST 25 ALT 15 Alkaline Phosphatase 101 Total Protein 7.4 Albumin 3.7 Lipase 188.6 Stool Occult Blood NEGATIVE Impressions: Abdomen/Pelvis CT 07/15/17 10:02 IMPRESSION: 1. 6.1 cm infrarenal abdominal aortic aneurysm, previously measures 6.0 cm. Vascular surgery consultation recommended. 2. Large amount of stool throughout the colon with a large stool ball at the rectosigmoid colon, suggestive of severe constipation/fecal impaction. 3. Interval development of severe right-sided hydroureteronephrosis, probably due to the mass effect from the above findings. 4. Distended urinary bladder, displaced by the distended rectosigmoid colon. 5. Distended gallbladder with cholelithiasis. Mild intrahepatic biliary ductal dilation. Please correlate with laboratory values and clinical concern for acute cholecystitis. 6. Moderate hiatal hernia. Status: Imported from PACS Transfer Plan - Disposition Transfer Plan: Patient is being transferred back to her facility to continue her care. Patient should remain on a bowel regimen which she appears to already be on with Colace, milk of magnesia and polyethylene glycol. - Time Spent with Patient Time spent with patient: Less than 30 Minutes Qualifiers PATEINT BEING DISCHARGED WITH ANY OF THE FOLLOWING DIAGNOSIS?: No
== END 2017-07-16 17:57 | disposition other institution (70) ==
LOC: ER 09:36 → EH 19:37 → 3N 07-16 01:15
PROVIDERS: ADMIT Internal Medicine; ATTEND Internal Medicine
DX: K56.41 Fecal impaction (principal); N13.30 Unspecified hydronephrosis; I71.4 Abdominal aortic aneurysm, without rupture; G30.9 Alzheimer's disease, unspecified; F02.81 Dementia in other diseases classified elsewhere, unspecified severity, with behavioral disturbance; K21.9 Gastro-esophageal reflux disease without esophagitis; I25.10 Atherosclerotic heart disease of native coronary artery without angina pectoris; K44.9 Diaphragmatic hernia without obstruction or gangrene; K80.20 Calculus of gallbladder without cholecystitis without obstruction; I10 Essential (primary) hypertension; E78.5 Hyperlipidemia, unspecified; Z66 Do not resuscitate; Z79.899 Other long term (current) drug therapy; Z79.82 Long term (current) use of aspirin; Z98.890 Other specified postprocedural states; Z78.1 Physical restraint status
CPT/HCPCS: 99285; 96361; 96374; 96375; 36415; 87086; 83690; 85025; 82272; 80053; 74177; G0378 ×3; A9270 ×5; J1630; J2765; J3490 ×2; J1650; J7030

== ENCOUNTER 2017-07-29 17:06 | Emergency (ER) | payer MEDICARE ==
[2017-07-29 17:13] VITALS: BP 140/79
[2017-07-29 17:49] LABS: ABSOLUTE BASOPHILS # (AUTO) 0.1 10^3/uL (0.0-0.2); ABSOLUTE EOSINOPHILS # (AUTO) 0.1 10^3/uL (0.0-0.6); ABSOLUTE LYMPHOCYTES (AUTO) 1.7 10^3/uL (0.5-4.7); ABSOLUTE MONOCYTES (AUTO) 0.5 10^3/uL (0.1-1.4); ABSOLUTE NEUT (AUTO) 4.1 10^3/uL (1.7-8.2); BASOPHILS % (AUTO) 1.1 % (0-2); EOSINOPHILS % (AUTO) 1.7 % (0-6); HEMATOCRIT 34.1 % (36.0-47.0); HEMOGLOBIN 11.4 g/dL (12.0-15.5); MEAN CORPUSCULAR HEMOGLOBIN 30.3 pg (27.0-33.4); MEAN CORPUSCULAR HGB CONC 33.4 g/dL (32.0-36.0); MEAN CORPUSCULAR VOLUME 91 fl (80-97); MONOCYTES % (AUTO) 7.1 % (3-13); PLATELET COUNT 287 10^3/uL (150-450); RED BLOOD COUNT 3.77 10^6/uL (3.72-5.28); RED CELL DISTRIBUTION WIDTH 14.5 % (11.5-14.0); SEGMENTED NEUTROPHILS % (AUTO) 63.1 % (42-78); TOTAL CELLS COUNTED % (AUTO) 100 %; WHITE BLOOD COUNT 6.4 10^3/uL (4.0-10.5)
[2017-07-29 18:00] LABS: AMORPHOUS SEDIMENT,URINE TRACE /HPF; APPEARANCE,URINE CLOUDY; BILIRUBIN,URINE NEGATIVE (NEGATIVE); COLOR,URINE YELLOW; GLUCOSE, URINE NEGATIVE (NEGATIVE); KETONES,URINE NEGATIVE (NEGATIVE); LEUKOCYTE ESTERASE,URINE LARGE (NEGATIVE); NITRITE,URINE NEGATIVE (NEGATIVE); PROTEIN,URINE 100 mg/dL (NEGATIVE); URINE SPECIFIC GRAVITY 1.012
[2017-07-29 18:09] LABS: ALANINE AMINOTRANSFERASE 18 U/L (9-52); ALBUMIN 3.6 g/dL (3.5-5.0); ALKALINE PHOSPHATASE 102 U/L (38-126); ANION GAP 9 (5-19); ASPARTATE AMINO TRANSFERASE 20 U/L (14-36); BILIRUBIN,DIRECT 0.4 mg/dL (0.0-0.4); BILIRUBIN,TOTAL 0.4 mg/dL (0.2-1.3); BLOOD UREA NITROGEN 19 mg/dL (7-20); CALCIUM 9.3 mg/dL (8.4-10.2); CARBON DIOXIDE 27 mmol/L (22-30); CHLORIDE 105 mmol/L (98-107); GLUCOSE 102 mg/dL (75-110); LIPASE 369.6 U/L (23-300); POTASSIUM 3.7 mmol/L (3.6-5.0); TOTAL PROTEIN 7.1 g/dL (6.3-8.2)
[2017-07-29] MEDS ORDERED: CEPHALEXIN 500 MG CAPSULE PO ONE (18:37)
--- NOTE | 2017-07-29 18:40 | ER Document Report ---
ED General - General Chief Complaint: Abdominal Pain Stated Complaint: ABDOMINAL PAIN Time Seen by Provider: 07/29/17 18:26 Cannot obtain history due to: Dementia Notes: Patient is a 77-year-old female with history of advanced dementia with associated aggressive behaviors who presents by EMS with facility concerns of abdominal distention and not having had a bowel movement for 3 days. The facility denied that the patient complained of pain. The patient herself is profoundly demented, states that she was at a friend's house today when she began to have some abdominal discomfort. However to me at this time she denies any complaints whatsoever and states "I like to get the hell out of here". No additional history can be obtained as there is no family or staff and the facility the bedside the patient's dementia prevents her from providing appropriate history. TRAVEL OUTSIDE OF THE [place] IN LAST 30 DAYS: No - Related Data Allergies/Adverse Reactions: No Known Allergies Allergy (Verified 07/15/17 10:16) Past Medical History - General Information source: Transfer Record, Emergency Med Personnel Cannot obtain history due to: Dementia - Social History Smoking Status: Never Smoker Frequency of alcohol use: None Drug Abuse: None Lives with: [facility] Family History: Reviewed & Not Pertinent, Other - Patient suffers from dementia Patient has suicidal ideation: No Patient has homicidal ideation: No - Past Medical History Cardiac Medical History: Reports: Hx Coronary Artery Disease, Hx Hypercholesterolemia, Hx Hypertension Renal/ Medical History: Denies: Hx Peritoneal Dialysis GI Medical History: Reports: Hx Gastroesophageal Reflux Disease Musculoskeltal Medical History: Reports Hx Arthritis Psychiatric Medical History: Reports: Hx Dementia - Alzheimer's Past Surgical History: Reports: Hx Abdominal Surgery - Immunizations Hx Diphtheria, Pertussis, Tetanus Vaccination: No Review of Systems - Review of Systems Notes: Constitutional: Negative for fever. HENT: Negative for sore throat. Eyes: Negative for visual changes. Cardiovascular: Negative for chest pain. Respiratory: Negative for shortness of breath. Gastrointestinal: Negative for abdominal pain, vomiting or diarrhea. Genitourinary: Negative for dysuria. Musculoskeletal: Negative for back pain. Skin: Negative for rash. Neurological: Negative for headaches, weakness or numbness. 10 point ROS negative except as marked above and in HPI. Physical Exam - Vital signs Vitals: Temp Pulse Resp BP Pulse Ox 99.1 F 80 18 140/79 H 96 07/29/17 17:12 07/29/17 17:12 07/29/17 17:12 07/29/17 17:12 07/29/17 17:12 Interpretation: Normal Notes: PHYSICAL EXAMINATION: GENERAL: Well-appearing, well-nourished and in no acute distress. HEAD: Atraumatic, normocephalic. EYES: Pupils equal round and reactive to light, extraocular movements intact, sclera anicteric, conjunctiva are normal. ENT: nares patent, oropharynx clear without exudates. Moist mucous membranes. NECK: Normal range of motion, supple without lymphadenopathy LUNGS: Breath sounds clear to auscultation bilaterally and equal. No wheezes rales or rhonchi. HEART: Regular rate and rhythm without murmurs ABDOMEN: Soft, nontender, normoactive bowel sounds. No guarding, no rebound. No masses appreciated. EXTREMITIES: Normal range of motion, no pitting or edema. No cyanosis. NEUROLOGICAL: No focal neurological deficits. Moves all extremities spontaneously and on command. PSYCH: Oriented only to person SKIN: Warm, Dry, normal turgor, no rashes or lesions noted. Course - Re-evaluation Re-evalutation: 07/29/17 18:38 Patient presents with reported complaint of abdominal pain although she denies any complaints to me. Although the patient is demented, she responds very clearly to me that she is in no discomfort whatsoever "I'd like to get the hell out of here". Patient was recently hospitalized approximately 12 days ago for similar presentation, found to have a 6.1 cm AAA. Bedside ultrasound performed by myself demonstrates an abdominal aortic aneurysm measuring approximately 6 cm but there is no evidence of free fluid in the abdomen or rupture. Patient denies any discomfort again diagnostically excluding a ruptured AAA. Labs are otherwise unremarkable with exception of the urinalysis which demonstrates findings consistent with the urine tract infection. There is report of patient being constipated although this is not an emergent issue and I have encouraged the nursing facility and documentation to continue to provide MiraLAX that has been recommended during her prior hospitalization. I do not see any indication for emergent CT imaging of the abdomen and pelvis has have a very low clinical suspicion for an acute left knee pathology as patient denies any complaints. Will discharge back to facility at this time. - Vital Signs Vital signs: Temp Pulse Resp BP Pulse Ox 99.1 F 80 18 140/79 H 96 02/10/18 17:12 07/29/17 17:12 07/29/17 17:12 07/29/17 17:12 07/29/17 17:12 - Laboratory Result Diagrams: 07/29/17 17:30 07/29/17 17:30 Laboratory results interpreted by me: 07/29/17 07/29/17 07/29/17 17:20 17:30 17:30 Hgb 11.4 L Hct 34.1 L RDW 14.5 H Creatinine 1.26 H Est GFR ( Amer) 50 L Est GFR (Non-Af Amer) 41 L Lipase 369.6 H Urine Protein 100 H Urine Urobilinogen 2.0 H Ur Leukocyte Esterase LARGE H Discharge - Discharge Clinical Impression: AAA (abdominal aortic aneurysm) without rupture Urinary tract infection Qualifiers: Urinary tract infection type: acute cystitis Hematuria presence: without hematuria Qualified Code(s): N30.00 - Acute cystitis without hematuria Condition: Good Disposition: HOME, SELF-CARE Additional Instructions: Your urine shows findings consistent with a urinary tract infection. Please take all the antibiotics as directed even if your symptoms have improved. Please follow-up with your primary care physician as needed. Return to emergency room if you develop fever >101F, persistent vomiting, become lethargic , have severe pain in your sides, or any other symptoms that are concerning to you. Please continue to provide the patient 1-2 capfuls of MiraLAX daily for constipation.
[2017-07-29] MEDS ORDERED: HALOPERIDOL LACTATE INJ 5 MG/1 ML VIAL ONE (19:30)
[2017-07-29] MEDS ORDERED: HALOPERIDOL LACTATE INJ 5 MG/1 ML VIAL IM ONE (19:32)
== END 2017-07-30 00:15 | disposition home or self-care (01) ==
LOC: ER 17:06
DX: I71.4 Abdominal aortic aneurysm, without rupture (principal); N30.00 Acute cystitis without hematuria; R10.9 Unspecified abdominal pain
CPT/HCPCS: 99285; 36415; 87086; 83690; 85025; 80053; 81001; A9270

== ENCOUNTER 2017-08-06 23:44 | Inpatient (IN) | payer MEDICARE ==
--- NOTE | 2017-08-06 23:57 | ER Document Report ---
ED General - General Stated Complaint: FALL/STOMACH PAIN Time Seen by Provider: 08/06/17 23:57 Mode of Arrival: Stretcher Information source: Patient TRAVEL OUTSIDE OF THE [place] IN LAST 30 DAYS: No - HPI Notes: 77-year-old lady with past medical history of Alzheimer's disease, dementia, aggressive behavior, prior history of pancreatitis who presented today for evaluation of abdominal pain. According to staff patient complained of midepigastric pain and tried to get up at the facility and sustained a mechanical fall. Unsure if patient had loss of consciousness. Patient is not on any blood thinners. Patient is a very poor historian and cannot provide details of her complaints. Patient points to her mid abdomen for her pain. Patient also has history of AAA. - Related Data Allergies/Adverse Reactions: No Known Allergies Allergy (Verified 08/07/17 00:42) Past Medical History - Social History Smoking Status: Unknown if Ever Smoked Family History: Reviewed & Not Pertinent, Other - Patient suffers from dementia - Past Medical History Cardiac Medical History: Reports: Hx Coronary Artery Disease, Hx Hypercholesterolemia, Hx Hypertension Renal/ Medical History: Denies: Hx Peritoneal Dialysis GI Medical History: Reports: Hx Gastroesophageal Reflux Disease Musculoskeltal Medical History: Reports Hx Arthritis Psychiatric Medical History: Reports: Hx Dementia - Alzheimer's Past Surgical History: Reports: Hx Abdominal Surgery - Immunizations Hx Diphtheria, Pertussis, Tetanus Vaccination: No Review of Systems - Review of Systems -: Yes ROS unobtainable due to patient's medical condition Physical Exam - Vital signs Vitals: Temp Pulse Resp BP Pulse Ox 99.2 F 100 14 135/67 H 97 08/07/17 00:44 08/07/17 00:44 08/07/17 00:44 08/07/17 00:44 08/07/17 00:44 - Notes Notes: Reviewed vital signs and nursing note as charted by RN. CONSTITUTIONAL: Alert, patient is demented, appears to be in no acute distress HEAD: Normocephalic; atraumatic EYES: PERRL; Conjunctivae clear, sclerae non-icteric ENT: normal nose; no rhinorrhea; moist dry mucous membranes; pharynx without lesions noted NECK: Supple without meningismus; non-tender; no cervical lymphadenopathy, no masses CARD: Regular rate and rhythm; no murmurs, no clicks, no rubs, no gallops; symmetric distal pulses RESP: Normal chest excursion without splinting or tachypnea; breath sounds clear and equal bilaterally ABD/GI: Normal bowel sounds; non-distended; soft, patient has epigastric tenderness to palpation with mild guarding Rectal: Large amount of stool in the rectum, brown stool, heme-negative BACK: The back appears normal and is non-tender to palpation EXT: Normal ROM in all joints SKIN: Normal color for age and race; warm; dry; good turgor; capillary refill < 2 seconds; no acute lesions noted NEURO: Cranial nerves 3-12 intact. Motor strength 5/5 bilaterally. Sensation intact to touch bilaterally PSYCH: Patient is demented Course - Re-evaluation Re-evalutation: 77-year-old here for evaluation of a fall as well as abdominal pain Differential diagnoses includes closed head injury, subdural hematoma, pancreatitis, ruptured AAA, intra-abdominal infection, colitis, diverticulitis, peptic ulcer disease, cholecystitis, biliary colic, acute cystitis We will obtain basic lab work including CBC, CMP, lipase, urinalysis We will obtain CT scan of her brain as well as CT of her abdomen and pelvis with contrast We will give patient IV fluids Reassess patient 08/07/17 03:[address] scan of her brain without any subdural or intracranial hemorrhage CT scan of her abdomen reveals chronic AAA without any rupture measuring approximately 6 cm in size Patient has Cholelithiasis with pericholecystic fluid collection, patient has elevated lipase as well as alk phos and slightly elevated AST, will obtain right upper quadrant ultrasound to rule out acute cholecystitis or gallbladder pancreatitis We will give patient IV fluids as well as IV Rocephin Will place Sherman given acute hydronephrosis and bladder distention, patient noted to have acute kidney injury as well likely secondary to hydronephrosis 08/07/17 04:32 Right upper quadrant ultrasound with acute on chronic cholecystitis I have consulted surgery, spoke with Dr. Marcano, we discussed the case and reviewed her imaging and lab work, he recommended admission to hospitalist service for treatment of acute pancreatitis for now. Patient will need cholecystectomy after she has been treated for acute pancreatitis. He recommended admission to hospitalist. Patient also has moderate amount of stool throughout her colon as well as rectum , will disimpact patient as well as give her enemas 08/07/17 04:55 I have discussed the case with hospitalist, Dr. Raphael Montenegro, he refused admission Will contact Bruise Trimmer in order to facilitate admission process 08/07/17 05:01 08/07/17 05:32 I have discussed the case with Hospital Litigation Assistant to resolve the admission process. I have told her that if Hospitalist refuses admission I will have to transfer this patient to another facility and that will be EMTALA violation. Will await recommendations and suggestions from Hospital Litigation Assistant. 08/07/17 05:49 After rectal disimpaction as well as multiple rounds of enema patient still has moderate amount of stool in her colon that will need a bowel regimen. In my personal opinion patient needs admission for a bowel regimen as well as stool softeners and recurrent enemas. I have discussed this case with hospitalist again, he agreed to evaluate patient in emergency department. - Vital Signs Vital signs: Temp Pulse Resp BP Pulse Ox 99.2 F 100 14 135/67 H 97 08/07/17 00:44 08/07/17 00:44 08/07/17 00:44 08/07/17 00:44 08/07/17 00:44 - Laboratory Result Diagrams: 08/07/17 00:13 08/07/17 01:35 Laboratory results interpreted by me: 08/07/17 08/07/17 08/07/17 00:13 01:35 04:26 RBC 3.23 L Hgb 9.8 L Hct 29.5 L RDW 14.6 H Band Neutrophils % 1 L BUN 24 H Creatinine 1.48 H Est GFR ( Amer) 41 L Est GFR (Non-Af Amer) 34 L Glucose 130 H AST 56 H Alkaline Phosphatase 168 H Albumin 3.3 L Lipase 409.6 H Urine Protein 30 H - Diagnostic Test Radiology reviewed: Image reviewed - EXAM DESCRIPTION: CT HEAD WITHOUT CLINICAL HISTORY: 77 years Female, trauma COMPARISON: 2. TECHNIQUE: No contrast. This exam was performed according to our departmental dose- optimization program, which includes automated exposure control, adjustment of the mA and/or kV according to patient size and/or use of iterative reconstruction technique. FINDINGS: No hemorrhage or infarct. No mass, mass effect, or midline shift. Mild volume loss and mild white matter microangiopathy. Brain and extra-axial structures appear otherwise intact. IMPRESSION: No acute findings. Dictated by: HARRISON WHITE MD [id number] CC: BRANDON TRAMMELL MD EXAM DESCRIPTION: CT ABD/PELVIS WITH IV ONLY CLINICAL HISTORY: 77 years Female, abdominal pain COMPARISON: 07.15.17 TECHNIQUE: 100 mL Isovue-370 contrast. Coronal and sagittal reformat. This exam was performed according to our departmental dose-optimization program, which includes automated exposure control, adjustment of the mA and/or kV according to patient size and/or use of iterative reconstruction technique. FINDINGS: Interval abdominal aortic aneurysm repair with aortobiiliac graft. Small gas bubbles in the [place] abdominal aortic aneurysm which measures 6.0 cm in transaxial oblique diameter compared with 6.4 cm, 07/15/2017. Several calcified layered gallstones with minimal pericholecystic fluid. Moderate dilated bilateral renal collecting systems including moderate grade bilateral hydronephrosis/hydroureter, right more than left, and 17 cm dilated urinary bladder consistent with prior exam, CT, 07/15/2017. Coronary arterial stent/ calcification. Calcification associated with the aortic valve. 5.3 cm hiatal hernia. Sigmoid stool retention. Mild chronic L1 anterior compression deformity. Clips along the midline. Inferior thorax, liver, pancreas, spleen, adrenals, renal system, gastrointestinal tract, pelvic organs, lymphatics, and musculoskeleton appear otherwise unremarkable. IMPRESSION: 1. Cholelithiasis with minimal nonspecific pericholecystic fluid. Consider ultrasound and/or laboratory correlation, as clinically warranted. 2. Aortobiiliac repair appears grossly intact on nondedicated exam. There are small likely iatrogenic gas bubbles within the [place] AAA decreased in overall diameter. 3. Moderate-grade bladder outlet obstruction pattern including moderate bilateral hydronephrosis/hydroureter, right more than left. Similar process on prior exam, 07/15/2017. Urology consultation advised. Dictated by : HARRISON WHITE MD [id number] CC: BRANDON TRAMMELL MD Procedures - Additional Procedures rectal disimpaction Time performed: 05:00 Notes: 08/07/17 05:07 Pt was placed in left decubitus position Rectal examination was performed with moderate amount of soft stool in the rectum The stool feels soft, brown Large amount of stool was removed from rectum and was followed with soap juan daniel enema and mineral oil Discharge - Discharge Clinical Impression: Pancreatitis, JEFFREY (acute kidney injury), AAA (abdominal aortic aneurysm) without rupture, Dementia, DNR (do not resuscitate), Hydronephrosis due to obstruction of bladder, Cholecystitis, Fecal impaction of rectum, Fecal impaction of colon Condition: Stable Disposition: ADMITTED INPATIENT Admitting Provider: Hospitalist Unit Admitted: Medical Floor
[2017-08-07 00:47] LABS: HEMATOCRIT 29.5 % (36.0-47.0); HEMOGLOBIN 9.8 g/dL (12.0-15.5); MEAN CORPUSCULAR HEMOGLOBIN 30.3 pg (27.0-33.4); MEAN CORPUSCULAR HGB CONC 33.2 g/dL (32.0-36.0); MEAN CORPUSCULAR VOLUME 91 fl (80-97); PLATELET COUNT 265 10^3/uL (150-450); RED BLOOD COUNT 3.23 10^6/uL (3.72-5.28); RED CELL DISTRIBUTION WIDTH 14.6 % (11.5-14.0); WHITE BLOOD COUNT 6.5 10^3/uL (4.0-10.5)
[2017-08-07 01:12] LABS: ABSOLUTE LYMPHOCYTES# (MANUAL) 1.2 10^3/uL (0.5-4.7); ABSOLUTE MONOCYTES # (MANUAL) 0.6 10^3/uL (0.1-1.4); ABSOLUTE NEUTROPHILS# (MANUAL) 4.4 10^3/uL (1.7-8.2); BAND NEUTROPHILS % (MANUAL) 1 % (3-5); BASOPHILS % (MANUAL) 0 % (0-2); EOSINOPHILS % (MANUAL) 5 % (0-6); LYMPHOCYTES % (MANUAL) 18 % (13-45); MONOCYTES % (MANUAL) 9 % (3-13); SEGMENTED NEUTROPHILS % (MAN) 66 % (42-78); TOTAL CELLS COUNTED 100
[2017-08-07 01:13] LABS: PLATELET COMMENT ADEQUATE; RBC MORPHOLOGY COMMENT NORMO-CYTIC/CHROMIC
[2017-08-07 02:02] LABS: ALANINE AMINOTRANSFERASE 37 U/L (9-52); ALBUMIN 3.3 g/dL (3.5-5.0); ALKALINE PHOSPHATASE 168 U/L (38-126); ANION GAP 11 (5-19); ASPARTATE AMINO TRANSFERASE 56 U/L (14-36); BILIRUBIN,DIRECT 0.4 mg/dL (0.0-0.4); BILIRUBIN,TOTAL 0.4 mg/dL (0.2-1.3); BLOOD UREA NITROGEN 24 mg/dL (7-20); CALCIUM 8.9 mg/dL (8.4-10.2); CARBON DIOXIDE 25 mmol/L (22-30); CHLORIDE 105 mmol/L (98-107); GLUCOSE 130 mg/dL (75-110); LIPASE 409.6 U/L (23-300); POTASSIUM 3.9 mmol/L (3.6-5.0); SODIUM 141.4 mmol/L (137-145); TOTAL PROTEIN 6.8 g/dL (6.3-8.2)
--- NOTE | 2017-08-07 02:55 | RADIOLOGY REPORT (SQ) ---
EXAM DESCRIPTION: CT HEAD WITHOUT CLINICAL HISTORY: 77 years Female, trauma COMPARISON: 2.22.17 TECHNIQUE: No contrast. This exam was performed according to our departmental dose-optimization program, which includes automated exposure control, adjustment of the mA and/or kV according to patient size and/or use of iterative reconstruction technique. FINDINGS: No hemorrhage or infarct. No mass, mass effect, or midline shift. Mild volume loss and mild white matter microangiopathy. Brain and extra-axial structures appear otherwise intact. IMPRESSION: No acute findings.
--- NOTE | 2017-08-07 03:18 | RADIOLOGY REPORT (SQ) ---
EXAM DESCRIPTION: CT ABD/PELVIS WITH IV ONLY CLINICAL HISTORY: 77 years Female, abdominal pain COMPARISON: 07.15.17 TECHNIQUE: 100 mL Isovue-370 contrast. Coronal and sagittal reformat. This exam was performed according to our departmental dose-optimization program, which includes automated exposure control, adjustment of the mA and/or kV according to patient size and/or use of iterative reconstruction technique. FINDINGS: Interval abdominal aortic aneurysm repair with aortobiiliac graft. Small gas bubbles in the [place] abdominal aortic aneurysm which measures 6.0 cm in transaxial oblique diameter compared with 6.4 cm, 07/15/2017. Several calcified layered gallstones with minimal pericholecystic fluid. Moderate dilated bilateral renal collecting systems including moderate grade bilateral hydronephrosis/hydroureter, right more than left, and 17 cm dilated urinary bladder consistent with prior exam, CT, 07/15/2017. Coronary arterial stent/calcification. Calcification associated with the aortic valve. 5.3 cm hiatal hernia. Sigmoid stool retention. Mild chronic L1 anterior compression deformity. Clips along the midline. Inferior thorax, liver, pancreas, spleen, adrenals, renal system, gastrointestinal tract, pelvic organs, lymphatics, and musculoskeleton appear otherwise unremarkable. IMPRESSION: 1. Cholelithiasis with minimal nonspecific pericholecystic fluid. Consider ultrasound and/or laboratory correlation, as clinically warranted. 2. Aortobiiliac repair appears grossly intact on nondedicated exam. There are small likely iatrogenic gas bubbles within the [place] AAA decreased in overall diameter. 3. Moderate-grade bladder outlet obstruction pattern including moderate bilateral hydronephrosis/hydroureter, right more than left. Similar process on prior exam, 07/15/2017. Urology consultation advised.
[2017-08-07] MEDS ORDERED: CEFTRIAXONE 1 GM/D5W RTU 1 GM/50 ML RTUPB IV ONE (03:31)
[2017-08-07] MEDS ORDERED: NORMAL SALINE 1000 ML 1,000 ML IV ONE (03:32)
[2017-08-07] MEDS ORDERED: CEFTRIAXONE INJ 1000 MG VIAL ONE (03:55)
--- NOTE | 2017-08-07 04:22 | RADIOLOGY REPORT (SQ) ---
EXAM DESCRIPTION: U/S ABDOMEN LIMITED W/O DOP CLINICAL HISTORY: 77 years, Female, acute cholecystitis COMPARISON: None. TECHNIQUE/limitation: Targeted gallbladder only as requested. Uncooperative patient. FINDINGS: Several layering gallstones measuring up to 1.2 cm each, partially contracted and gallbladder, minimal pericholecystic fluid, and positive sonographic Lopez's test. Gallbladder wall thickness is 0.2 cm. Common bile duct measures 0.4 cm in diameter. IMPRESSION: Cholelithiasis with positive sonographic Lopez's test. Differential diagnosis includes acute/chronic cholecystitis and biliary colic.
[2017-08-07 04:46] LABS: APPEARANCE,URINE CLEAR; BILIRUBIN,URINE NEGATIVE (NEGATIVE); COLOR,URINE YELLOW; GLUCOSE, URINE NEGATIVE (NEGATIVE); KETONES,URINE NEGATIVE (NEGATIVE); LEUKOCYTE ESTERASE,URINE NEGATIVE (NEGATIVE); NITRITE,URINE NEGATIVE (NEGATIVE); PROTEIN,URINE 30 mg/dL (NEGATIVE); URINE SPECIFIC GRAVITY 1.018; UROBILINOGEN,URINE NEGATIVE mg/dL (<2.0)
[2017-08-07] MEDS ORDERED: MINERAL OIL 30 ML UDCUP ONE (05:02)
--- NOTE | 2017-08-07 05:28 | PDOC CONSULTATION ---
Consultation Consult Date: 08/07/17 Consult reason:: gallstone pancreatitis History of Present Illness History of Present Illness: SHAHBAZ ROSA is a 77 year old female, [facility] resident, with a c/o midabdomianl pain. She has moderately Alzheimer's disease, cooperative, but poor historian. A CT scan A/P has been done and it is significant for cholelithiasis and pericholecystic fliuid, grafted AAA, fecal matter retained, and distended bladder with secondary hydronephrosis left more than right. A GB US confirms cholelithiasis with pericholecystic fluid. Her blood work reveals elevated lipase and slight elevation of liver enzymes with normal bilirubin. Past Medical History Cardiac Medical History: Reports: Coronary Artery Disease, Hyperlipidema, Hypertension GI Medical History: Reports: Gastroesophageal Reflux Disease Musculoskeltal Medical History: Reports: Arthritis Psychiatric Medical History: Reports: Dementia - Alzheimer's Past Surgical History Past Surgical History: Reports: Vascular Surgery - AAA biforcated stent placement Social History Smoking Status: Unknown if Ever Smoked Frequency of Alcohol Use: None Hx Recreational Drug Use: No Drugs: None Hx Prescription Drug Abuse: No Family History Family History: Reviewed & Not Pertinent, Other - Patient suffers from dementia Parental Family History Reviewed: Yes Children Family History Reviewed: Yes Sibling(s) Family History Reviewed.: Yes Medication/Allergy Allergies/Adverse Reactions: No Known Allergies Allergy (Verified 08/07/17 00:42) Physical Exam Vital Signs: Temp Pulse Resp BP Pulse Ox 99.2 F 100 14 135/67 H 97 08/07/17 00:44 08/07/17 00:44 08/07/17 00:44 08/07/17 00:44 08/07/17 00:44 General appearance: PRESENT: no acute distress, cooperative Head exam: PRESENT: atraumatic Mouth exam: PRESENT: dry mucosa Neck exam: PRESENT: full ROM Respiratory exam: PRESENT: clear to auscultation kenn Cardiovascular exam: PRESENT: RRR GI/Abdominal exam: PRESENT: hypoactive bowel sounds, soft, tenderness - upper abdomen, other - epigastric abdominal transverse incision. well healed Rectal exam: PRESENT: deferred Musculoskeletal exam: PRESENT: full ROM Results Laboratory Results: 08/07/17 00:13 08/07/17 01:35 08/07/17 08/07/17 08/07/17 00:13 00:13 01:35 WBC 6.5 RBC 3.23 L Hgb 9.8 L Hct 29.5 L MCV 91 MCH 30.3 MCHC 33.2 RDW 14.6 H Plt Count 265 Seg Neutrophils % Not Reportable Lymphocytes % Not Reportable Monocytes % Not Reportable Eosinophils % Not Reportable Basophils % Not Reportable Absolute Neutrophils Not Reportable Absolute Lymphocytes Not Reportable Absolute Monocytes Not Reportable Absolute Eosinophils Not Reportable Absolute Basophils Not Reportable Sodium Cancelled 141.4 Potassium Cancelled 3.9 Chloride Cancelled 105 Carbon Dioxide Cancelled 25 Anion Gap Cancelled 11 BUN Cancelled 24 H Creatinine Cancelled 1.48 H Est GFR ( Amer) Cancelled 41 L Est GFR (Non-Af Amer) Cancelled 34 L Glucose Cancelled 130 H Calcium Cancelled 8.9 Total Bilirubin Cancelled 0.4 AST Cancelled 56 H ALT Cancelled 37 Alkaline Phosphatase Cancelled 168 H Total Protein Cancelled 6.8 Albumin Cancelled 3.3 L Lipase Cancelled 409.6 H Urine Color Urine Appearance Urine pH Ur Specific [place] Urine Protein Urine Glucose (UA) Urine Ketones Urine Blood Urine Nitrite Ur Leukocyte Esterase Urine WBC (Auto) Urine RBC (Auto) 08/07/17 04:26 WBC RBC Hgb Hct MCV MCH MCHC RDW Plt Count Seg Neutrophils % Lymphocytes % Monocytes % Eosinophils % Basophils % Absolute Neutrophils Absolute Lymphocytes Absolute Monocytes Absolute Eosinophils Absolute Basophils Sodium Potassium Chloride Carbon Dioxide Anion Gap BUN Creatinine Est GFR ( Amer) Est GFR (Non-Af Amer) Glucose Calcium Total Bilirubin AST ALT Alkaline Phosphatase Total Protein Albumin Lipase Urine Color YELLOW Urine Appearance CLEAR Urine pH 7.0 Ur Specific [place] 1.018 Urine Protein 30 H Urine Glucose (UA) NEGATIVE Urine Ketones NEGATIVE Urine Blood NEGATIVE Urine Nitrite NEGATIVE Ur Leukocyte Esterase NEGATIVE Urine WBC (Auto) 4 Urine RBC (Auto) 0 Impressions: Abdomen/Pelvis CT 08/06/17 23:58 IMPRESSION: 1. Cholelithiasis with minimal nonspecific pericholecystic fluid. Consider ultrasound and/or laboratory correlation, as clinically warranted. 2. Aortobiiliac repair appears grossly intact on nondedicated exam. There are small likely iatrogenic gas bubbles within the [place] AAA decreased in overall diameter. 3. Moderate-grade bladder outlet obstruction pattern including moderate bilateral hydronephrosis/hydroureter, right more than left. Similar process on prior exam, 07/15/2017. Urology consultation advised. Head CT 08/06/17 23:58 IMPRESSION: No acute findings. Abdomen Ultrasound 08/07/17 03:24 IMPRESSION: Cholelithiasis with positive sonographic Lopez's test. Differential diagnosis includes acute/chronic cholecystitis and biliary colic. Assessment & Plan - Diagnosis (1) Acute gallstone pancreatitis Is this a current diagnosis for this admission?: Yes - Plan Summary Plan Summary: A/ 77 y/o F, with dementia Gallstone pancreatitis.elevated lipase (406) Cholelithiaiss with some pericholecystic fluid and slight elevation of liver enzymes, normal bilirubin Distended bladder with hydronephrosis, unknown cause Fecal matter retention Biforcated AAA stent placed P/ Patient to be admitted by hospitalist NPO IVF hydration No antibiotics needed Mineral oil enemas to relieve fecal matter retention Once her medical condition has stabilized and her abdominal pain improves, patient will be scheduled to undergo laparoscopic cholecystectomy
[2017-08-07] MEDS ORDERED: MAGNESIUM HYDROXIDE SUSP 30 ML UDCUP PO PRN ×2 (06:10→15:15)
[2017-08-07] MEDS ORDERED: MAG HYDROX/AL HYDROX/SIMETH SUSP 30 ML UDCUP PO PRN ×2 (06:10→15:15)
[2017-08-07] MEDS ORDERED: IPRATROPIUM/ALBUTEROL 0.5-2.5 MG/3 ML AMPUL NEB PRN (06:10)
--- NOTE | 2017-08-07 07:26 | PDOC H&P ---
History of Present Illness History of Present Illness: SHAHBAZ ROSA is a 77 year old female [facility] resident with a history of Alzheimer's disease oriented to self but socially appropriate. History includes 6 cm abdominal aortic aneurysm, chronic bilateral hydronephrosis, stage II chronic kidney disease, cholelithiasis, and recurrent chronic constipation. Patient presents with left lower quadrant abdominal pain, CT abdomen and pelvis reveals chronicity and stability of the aortic aneurysm, hydronephrosis and cholelithiasis. It also shows marketed fecal impaction. In the emergency room she receives manual disimpaction is referred to the hospitalist for observation. Patient denies pain currently and requests something to eat. Past Medical History Cardiac Medical History: Reports: Coronary Artery Disease, Hyperlipidema, Hypertension GI Medical History: Reports: Gastroesophageal Reflux Disease Musculoskeltal Medical History: Reports: Arthritis Psychiatric Medical History: Reports: Dementia - Alzheimer's Past Surgical History Past Surgical History: Reports: Vascular Surgery - AAA biforcated stent placement Social History Information Source: [facility] Records Lives with: Long-Term Smoking Status: Unknown if Ever Smoked Frequency of Alcohol Use: None Hx Recreational Drug Use: No Drugs: None Hx Prescription Drug Abuse: No - Advance Directive Resuscitation Status: Do Not Resuscitate Family History Family History: Other - Patient suffers from dementia Parental Family History Reviewed: Yes Children Family History Reviewed: Yes Sibling(s) Family History Reviewed.: Yes Medication/Allergy Allergies/Adverse Reactions: No Known Allergies Allergy (Verified 08/07/17 00:42) Review of Systems ROS unobtainable: Due to mental status - Dementia Physical Exam Vital Signs: Temp Pulse Resp BP Pulse Ox 97.9 F 82 16 129/75 H 98 08/07/17 04:00 08/07/17 04:00 08/07/17 04:00 08/07/17 04:00 08/07/17 04:00 Intake & Output 08/05/17 08/06/17 08/07/17 11:59 11:59 11:59 Weight 58.967 kg General appearance: PRESENT: no acute distress, cooperative Head exam: PRESENT: atraumatic, normocephalic Eye exam: PRESENT: conjunctiva pink, EOMI, PERRLA. ABSENT: scleral icterus Ear exam: PRESENT: normal external ear exam Mouth exam: PRESENT: moist, tongue midline Neck exam: ABSENT: carotid bruit, JVD, lymphadenopathy, thyromegaly Respiratory exam: PRESENT: clear to auscultation kenn. ABSENT: rales, rhonchi, wheezes Cardiovascular exam: PRESENT: RRR. ABSENT: diastolic murmur, rubs, systolic murmur Pulses: PRESENT: normal [place]alis pedis pul Vascular exam: PRESENT: normal capillary refill GI/Abdominal exam: PRESENT: diminished bowel sounds, hypoactive bowel sounds, soft. ABSENT: distended, firm, guarding, normal bowel sounds, organolmegaly, rebound Rectal exam: PRESENT: deferred Extremities exam: PRESENT: full ROM. ABSENT: calf tenderness, clubbing, pedal edema Neurological exam: PRESENT: alert, awake, oriented to person, oriented to place , oriented to time, oriented to situation, CN II-XII grossly intact. ABSENT: motor sensory deficit Psychiatric exam: PRESENT: appropriate affect, normal mood. ABSENT: homicidal ideation, suicidal ideation Skin exam: PRESENT: dry, intact, warm. ABSENT: cyanosis, rash Results Laboratory Results: 08/07/17 00:13 08/07/17 01:35 08/07/17 08/07/17 08/07/17 00:13 00:13 01:35 WBC 6.5 RBC 3.23 L Hgb 9.8 L Hct 29.5 L MCV 91 MCH 30.3 MCHC 33.2 RDW 14.6 H Plt Count 265 Seg Neutrophils % Not Reportable Lymphocytes % Not Reportable Monocytes % Not Reportable Eosinophils % Not Reportable Basophils % Not Reportable Absolute Neutrophils Not Reportable Absolute Lymphocytes Not Reportable Absolute Monocytes Not Reportable Absolute Eosinophils Not Reportable Absolute Basophils Not Reportable Sodium Cancelled 141.4 Potassium Cancelled 3.9 Chloride Cancelled 105 Carbon Dioxide Cancelled 25 Anion Gap Cancelled 11 BUN Cancelled 24 H Creatinine Cancelled 1.48 H Est GFR ( Amer) Cancelled 41 L Est GFR (Non-Af Amer) Cancelled 34 L Glucose Cancelled 130 H Calcium Cancelled 8.9 Total Bilirubin Cancelled 0.4 AST Cancelled 56 H ALT Cancelled 37 Alkaline Phosphatase Cancelled 168 H Total Protein Cancelled 6.8 Albumin Cancelled 3.3 L Lipase Cancelled 409.6 H Urine Color Urine Appearance Urine pH Ur Specific [place] Urine Protein Urine Glucose (UA) Urine Ketones Urine Blood Urine Nitrite Ur Leukocyte Esterase Urine WBC (Auto) Urine RBC (Auto) 08/07/17 04:26 WBC RBC Hgb Hct MCV MCH MCHC RDW Plt Count Seg Neutrophils % Lymphocytes % Monocytes % Eosinophils % Basophils % Absolute Neutrophils Absolute Lymphocytes Absolute Monocytes Absolute Eosinophils Absolute Basophils Sodium Potassium Chloride Carbon Dioxide Anion Gap BUN Creatinine Est GFR ( Amer) Est GFR (Non-Af Amer) Glucose Calcium Total Bilirubin AST ALT Alkaline Phosphatase Total Protein Albumin Lipase Urine Color YELLOW Urine Appearance CLEAR Urine pH 7.0 Ur Specific [place] 1.018 Urine Protein 30 H Urine Glucose (UA) NEGATIVE Urine Ketones NEGATIVE Urine Blood NEGATIVE Urine Nitrite NEGATIVE Ur Leukocyte Esterase NEGATIVE Urine WBC (Auto) 4 Urine RBC (Auto) 0 Impressions: Abdomen/Pelvis CT 08/06/17 23:58 IMPRESSION: 1. Cholelithiasis with minimal nonspecific pericholecystic fluid. Consider ultrasound and/or laboratory correlation, as clinically warranted. 2. Aortobiiliac repair appears grossly intact on nondedicated exam. There are small likely iatrogenic gas bubbles within the [place] AAA decreased in overall diameter. 3. Moderate-grade bladder outlet obstruction pattern including moderate bilateral hydronephrosis/hydroureter, right more than left. Similar process on prior exam, 07/15/2017. Urology consultation advised. Head CT 08/06/17 23:58 IMPRESSION: No acute findings. Abdomen Ultrasound 08/07/17 03:24 IMPRESSION: Cholelithiasis with positive sonographic Lopez's test. Differential diagnosis includes acute/chronic cholecystitis and biliary colic. Assessment & Plan - Diagnosis (1) Fecal impaction Is this a current diagnosis for this admission?: Yes Plan: Manual disimpaction initiated with moderate results, continue bowel regiment with lactulose, Colace and daily enema 3 days. Trial clear liquid diet and advance as tolerated. (2) Chronic renal failure Is this a current diagnosis for this admission?: Yes Plan: In review of recent labs she is at baseline. Avoid nephrotoxic meds and doses gentle IV fluid challenge. (3) AAA (abdominal aortic aneurysm) without rupture Is this a current diagnosis for this admission?: Yes Plan: Unchanged from previous imaging. (4) Cholelithiasis Is this a current diagnosis for this admission?: Yes Plan: No sign of acute illness, without right upper quadrant pain, LFT elevation, bilirubin or, leukocytosis, ductal dilatation or fever. - Time Time Spent: 30 to 50 Minutes
--- NOTE | 2017-08-07 08:29 | Physician Advisory Note ---
Physician Advisor ProgressNote .: [facility] for this patient. Physician Advisor Statement: Status: appropriately brought in as Obs for fecal impaction/acute pancreatitis if attending expecting possibility this Medicare pt may improve enough for d/c to be safe later today. She did start medical tx in ED prior to MN, so has 1MN already in hospital care. If she does not improve sufficiently quickly for d/c to be felt safe later today , please document ongoing clinical issues requiring hospitalization for 2nd MN ( tonight), & may then change to Inpatient status based on current Medicare guidelines. Thanks! CK
[2017-08-07] MEDS: LACTULOSE SYRUP 20 GM/30 ML UDCUP PO SCH (11:32)
[2017-08-07] MEDS: PSYLLIUM SEED-SF 5.85 GM PACKET PO SCH (11:33)
[2017-08-07] MEDS: NORMAL SALINE 1000 ML 1,000 ML IV PRN (13:01)
[2017-08-07] MEDS: HEPARIN SOD (PORCINE) 5,000 UNIT/ML 1 ML SYRINGE SUBCUT SCH ×2 (14:19→22:30)
[2017-08-07] MEDS ORDERED: ACETAMINOPHEN 325 MG TABLET PO PRN (15:15)
[2017-08-07] MEDS ORDERED: NITROGLYCERIN 0.4 MG/TAB 25 TAB/BOTTLE SL PRN (15:15)
[2017-08-07] MEDS: HALOPERIDOL LACTATE INJ 5 MG/1 ML VIAL IV PRN (15:46)
[2017-08-07] MEDS: DOCUSATE SODIUM 100 MG CAPSULE PO SCH (18:28)
--- NOTE | 2017-08-07 18:58 | PDOC PROGRESS REPORT ---
Subjective Progress Note for:: 08/07/17 Subjective:: Patient is seen on rounds. She is resting in bed. She is incontinent of stool. She states her lower abdominal pain is still present. She is confused to time place and person. There is presently no family at the bedside. She denies any nausea or vomiting. She denies any chest pain, shortness of breath or dyspnea. She denies any arthralgias or myalgias. Reason For Visit: ABD PAIN,CKD, DEMENTIA, FECAL IMPACTION Physical Exam Vital Signs: Temp Pulse Resp BP Pulse Ox 99.2 F 95 16 140/68 H 100 08/07/17 16:42 08/07/17 17:19 08/07/17 17:19 08/07/17 16:42 08/07/17 16:42 Intake & Output 08/06/17 08/07/17 08/08/17 06:59 06:59 06:59 Output Total 1950 Balance -1950 General appearance: PRESENT: no acute distress, disheveled, hard of hearing, thin, well-developed Head exam: PRESENT: atraumatic, normocephalic Eye exam: PRESENT: conjunctiva pale Ear exam: PRESENT: normal external ear exam Mouth exam: PRESENT: moist, neck supple, tongue midline Teeth exam: PRESENT: edentulous Neck exam: PRESENT: carotid bruit, full ROM Respiratory exam: PRESENT: clear to auscultation kenn. ABSENT: rales, rhonchi, wheezes Cardiovascular exam: PRESENT: RRR. ABSENT: diastolic murmur, rubs, systolic murmur Pulses: PRESENT: normal carotid pulses, normal radial pulses Vascular exam: PRESENT: normal capillary refill GI/Abdominal exam: PRESENT: hypoactive bowel sounds, soft, tenderness - Epigastric area, Rectal exam: PRESENT: deferred Extremities exam: PRESENT: full ROM. ABSENT: calf tenderness, clubbing, pedal edema Musculoskeletal exam: PRESENT: ambulatory, full ROM, normal inspection Neurological exam: PRESENT: alert, altered, CN II-XII grossly intact Psychiatric exam: PRESENT: anxious, flat affect Skin exam: PRESENT: dry, intact, warm. ABSENT: cyanosis, rash Results Impressions: Abdomen/Pelvis CT 08/06/17 23:58 IMPRESSION: 1. Cholelithiasis with minimal nonspecific pericholecystic fluid. Consider ultrasound and/or laboratory correlation, as clinically warranted. 2. Aortobiiliac repair appears grossly intact on nondedicated exam. There are small likely iatrogenic gas bubbles within the [place] AAA decreased in overall diameter. 3. Moderate-grade bladder outlet obstruction pattern including moderate bilateral hydronephrosis/hydroureter, right more than left. Similar process on prior exam, 07/15/2017. Urology consultation advised. Head CT 08/06/17 23:58 IMPRESSION: No acute findings. Abdomen Ultrasound 08/07/17 03:24 IMPRESSION: Cholelithiasis with positive sonographic Lopez's test. Differential diagnosis includes acute/chronic cholecystitis and biliary colic. Assessment & Plan - Diagnosis (1) Acute gallstone pancreatitis Is this a current diagnosis for this admission?: Yes Plan: Patient still having some epigastric tenderness. Was given IV hydration in the ER. She is not having any nausea at the present time. She is drinking without vomiting. Surgery is following for possible cholecystectomy laparoscopically once her other symptoms are stable. We will recheck her lipase in the morning she still having low-grade fevers as well (2) Cholelithiasis Qualifiers: Cholelithiasis location: gallbladder Is this a current diagnosis for this admission?: Yes Plan: Surgery is following. Possible laparoscopic cholecystectomy once her other symptoms are stable (3) Chronic renal failure Qualifiers: Chronic kidney disease stage: stage 3 (moderate) Qualified Code(s): N18.3 - Chronic kidney disease, stage 3 (moderate) Is this a current diagnosis for this admission?: Yes Plan: We will avoid nephrotoxic medications and dosages (4) Dementia Qualifiers: Is this a current diagnosis for this admission?: Yes Plan: She lives in an extended care facility (5) Fecal impaction in rectum Is this a current diagnosis for this admission?: Yes Plan: She was disimpacted, and cathartics per (6) AAA (abdominal aortic aneurysm) Qualifiers: Presence of rupture: without rupture Qualified Code(s): I71.4 - Abdominal aortic aneurysm, without rupture Is this a current diagnosis for this admission?: Yes Plan: Known aneurysm approximately 6 cm in size (7) Moderate protein-calorie malnutrition Is this a current diagnosis for this admission?: Yes Plan: We will advance diet once her symptoms improve - Time Time Spent with patient: 25-34 minutes Total Critical Time (Minutes): 15
[2017-08-07] MEDS ORDERED: (PENDING PHARMACY ID) (Sennosides [Senna] 2 TAB) PO SCH (22:00)
[2017-08-07] MEDS ORDERED: (PENDING PHARMACY ID) (Quetiapine Fumarate [Seroquel] 50 MG) PO SCH (22:00)
[2017-08-07] MEDS ORDERED: MAGNESIUM CITRATE 296 ML BOTTLE PO ONE (22:15)
[2017-08-07] MEDS: QUETIAPINE FUMARATE 25 MG TABLET PO SCH (22:31)
[2017-08-07] MEDS: SENNOSIDES/DOCUSATE 8.6-50 MG 1 EACH TABLET PO SCH (22:32)
[2017-08-08] MEDS ORDERED: ONDANSETRON HCL INJ/PF 4 MG/2 ML SDV ONE (00:50)
[2017-08-08] MEDS ORDERED: ONDANSETRON HCL INJ/PF 4 MG/2 ML SDV IV ONE (01:00)
[2017-08-08] MEDS: HALOPERIDOL LACTATE INJ 5 MG/1 ML VIAL IV PRN (01:52)
[2017-08-08] MEDS: NORMAL SALINE 1000 ML 1,000 ML IV PRN (06:29)
[2017-08-08] MEDS: HEPARIN SOD (PORCINE) 5,000 UNIT/ML 1 ML SYRINGE SUBCUT SCH ×3 (06:45→22:13)
[2017-08-08 07:16] LABS: ABSOLUTE BASOPHILS # (AUTO) 0.1 10^3/uL (0.0-0.2); ABSOLUTE EOSINOPHILS # (AUTO) 0.2 10^3/uL (0.0-0.6); ABSOLUTE LYMPHOCYTES (AUTO) 1.5 10^3/uL (0.5-4.7); ABSOLUTE MONOCYTES (AUTO) 0.7 10^3/uL (0.1-1.4); ABSOLUTE NEUT (AUTO) 4.4 10^3/uL (1.7-8.2); BASOPHILS % (AUTO) 1.4 % (0-2); EOSINOPHILS % (AUTO) 2.9 % (0-6); HEMATOCRIT 22.4 % (36.0-47.0); LYMPHOCYTES % (AUTO) 21.4 % (13-45); MEAN CORPUSCULAR HEMOGLOBIN 30.7 pg (27.0-33.4); MEAN CORPUSCULAR HGB CONC 34.1 g/dL (32.0-36.0); MEAN CORPUSCULAR VOLUME 90 fl (80-97); MONOCYTES % (AUTO) 9.9 % (3-13); PLATELET COUNT 258 10^3/uL (150-450); RED BLOOD COUNT 2.49 10^6/uL (3.72-5.28); RED CELL DISTRIBUTION WIDTH 14.1 % (11.5-14.0); SEGMENTED NEUTROPHILS % (AUTO) 64.4 % (42-78); TOTAL CELLS COUNTED % (AUTO) 100 %; WHITE BLOOD COUNT 6.9 10^3/uL (4.0-10.5)
[2017-08-08 07:30] LABS: ALANINE AMINOTRANSFERASE 40 U/L (9-52); ALBUMIN 2.6 g/dL (3.5-5.0); ALKALINE PHOSPHATASE 180 U/L (38-126); ANION GAP 8 (5-19); ASPARTATE AMINO TRANSFERASE 75 U/L (14-36); BILIRUBIN,DIRECT 0.2 mg/dL (0.0-0.4); BILIRUBIN,TOTAL 0.3 mg/dL (0.2-1.3); BLOOD UREA NITROGEN 14 mg/dL (7-20); CARBON DIOXIDE 25 mmol/L (22-30); CHLORIDE 111 mmol/L (98-107); GLUCOSE 101 mg/dL (75-110); LIPASE 217.1 U/L (23-300); SODIUM 144.4 mmol/L (137-145); TOTAL PROTEIN 5.3 g/dL (6.3-8.2)
[2017-08-08 07:59] LABS: HEMOGLOBIN 7.6 g/dL (12.0-15.5)
--- NOTE | 2017-08-08 08:53 | Physician Advisory Note ---
Physician Advisor ProgressNote .: Pursuant to the plan for [facility], I have reviewed the medical record for this patient. Physician Advisor Statement: Status: Reasons for 2nd MN nicely documented: cont'd abd pain, epigastric tenderness, low grade fevers, plan for possible lap tai. Now with precipitous drop in H/H (?acute blood loss anemia, or just from rehydration?), resolved JEFFREY but sl worsened LFTs. Appropriate for Inpatient status as of 08/07 PM. CK
--- NOTE | 2017-08-08 09:59 | PDOC PROGRESS REPORT ---
Subjective Progress Note for:: 08/08/17 Subjective:: No overnight events. Continues to endorse abdominal pain but feels it is better. Denies fevers, chills, CP, SOB, N/V/D. Denies hematuria, hematochezia, or other bleeding issues, in context of dropping H&H Reason For Visit: ABD PAIN,CKD, DEMENTIA, FECAL IMPACTION Physical Exam Vital Signs: Temp Pulse Resp BP Pulse Ox 98.6 F 88 16 131/72 H 95 08/08/17 03:53 08/08/17 03:53 08/08/17 03:53 08/08/17 03:53 08/08/17 03:53 Intake & Output 08/07/17 08/08/17 08/09/17 06:59 06:59 06:59 Intake Total 2321 Output Total 2630 Balance -309 General appearance: PRESENT: no acute distress, well-developed, well-nourished Head exam: PRESENT: atraumatic, normocephalic Mouth exam: PRESENT: moist Respiratory exam: PRESENT: symmetrical Cardiovascular exam: PRESENT: RRR, +S1, +S2. ABSENT: systolic murmur GI/Abdominal exam: PRESENT: tenderness - Epigastric, RUQ. ABSENT: distended Extremities exam: PRESENT: tenderness Neurological exam: PRESENT: altered, oriented to person. ABSENT: oriented to place, oriented to time, aphasic Results Laboratory Results: 08/08/17 06:41 08/08/17 06:41 08/08/17 08/08/17 06:41 06:41 WBC 6.9 RBC 2.49 L Hgb 7.6 L D Hct 22.4 L MCV 90 MCH 30.7 MCHC 34.1 RDW 14.1 H Plt Count 258 Seg Neutrophils % 64.4 Lymphocytes % 21.4 Monocytes % 9.9 Eosinophils % 2.9 Basophils % 1.4 Absolute Neutrophils 4.4 Absolute Lymphocytes 1.5 Absolute Monocytes 0.7 Absolute Eosinophils 0.2 Absolute Basophils 0.1 Sodium 144.4 Potassium 4.0 Chloride 111 H Carbon Dioxide 25 Anion Gap 8 BUN 14 Creatinine 1.00 Est GFR ( Amer) > 60 Est GFR (Non-Af Amer) 54 L Glucose 101 Calcium 8.0 L Total Bilirubin 0.3 AST 75 H ALT 40 Alkaline Phosphatase 180 H Total Protein 5.3 L Albumin 2.6 L Lipase 217.1 Impressions: Abdomen/Pelvis CT 08/06/17 23:58 IMPRESSION: 1. Cholelithiasis with minimal nonspecific pericholecystic fluid. Consider ultrasound and/or laboratory correlation, as clinically warranted. 2. Aortobiiliac repair appears grossly intact on nondedicated exam. There are small likely iatrogenic gas bubbles within the [place] AAA decreased in overall diameter. 3. Moderate-grade bladder outlet obstruction pattern including moderate bilateral hydronephrosis/hydroureter, right more than left. Similar process on prior exam, 07/15/2017. Urology consultation advised. Head CT 08/06/17 23:58 IMPRESSION: No acute findings. Abdomen Ultrasound 08/07/17 03:24 IMPRESSION: Cholelithiasis with positive sonographic Lopez's test. Differential diagnosis includes acute/chronic cholecystitis and biliary colic. Assessment & Plan - Diagnosis (1) Acute gallstone pancreatitis Is this a current diagnosis for this admission?: Yes Plan: Improving, continues to endorse pain - Admission CT: Cholelithiasis with minimal nonspecific pericholecystic fluid, abdominal US: Cholelithiasis with positive sonographic Lopez's test - Lipase trending down, LFTs marginally increased, afebrile and HDS - Continue IVF - Blood cultures negative - Surgery following, likely lap tai this admission once improvement in symptoms, patient agreeable with plan (2) Acute renal injury Is this a current diagnosis for this admission?: Yes Plan: Likely pre-renal azotemia, Improving, Cr 1 on 08/08, decreased from 1/5 on 08/07 (3) Dementia Qualifiers: Is this a current diagnosis for this admission?: Yes Plan: Oriented only to self, currently at baseline (4) AAA (abdominal aortic aneurysm) Qualifiers: Presence of rupture: without rupture Qualified Code(s): I71.4 - Abdominal aortic aneurysm, without rupture Is this a current diagnosis for this admission?: Yes Plan: Known, re-demonstrated on admission CT. (5) Constipation Is this a current diagnosis for this admission?: Yes Plan: Improved, CTM (6) Anemia Qualifiers: Anemia type: unspecified type Qualified Code(s): D64.9 - Anemia, unspecified Is this a current diagnosis for this admission?: Yes Plan: Normocytic, H&h 7.6 from 9.8 - No active signs of bleeding, likely hemodilution from IVF - Continue to monitor, will re-check H&H at 4pm on 08/08 - Time Time Spent with patient: 15-24 minutes Anticipated discharge: Acute Rehab - Inpatient Certification Medical Necessity: Need For IV Fluids, Need for Surgery
[2017-08-08] MEDS ORDERED: ATORVASTATIN CALCIUM 10 MG TABLET PO SCH (10:00)
[2017-08-08] MEDS ORDERED: THIAMINE MONONITRATE 100 MG PO SCH (10:00)
[2017-08-08] MEDS: ASPIRIN 81 MG TABLET, ENT COATED PO SCH (10:53)
[2017-08-08] MEDS: LANSOPRAZOLE 30 MG TAB.RAP.DR PO SCH (10:53)
[2017-08-08] MEDS: POLYETHYLENE GLYCOL 3350 POWDER 17 GM/1 PACKET PO SCH (10:53)
[2017-08-08] MEDS: DOCUSATE SODIUM 100 MG CAPSULE PO SCH ×2 (10:54→18:02)
[2017-08-08] MEDS: CYANOCOBALAMIN (VITAMIN B-12) 1,000 MCG TABLET PO SCH (10:54)
[2017-08-08] MEDS: THIAMINE HCL 100 MG TABLET PO SCH (10:54)
[2017-08-08] MEDS: FLUTICASONE NASAL SPRAY 50 MCG/SPRY 120 SPRAY/16 GM NASL SCH (10:54)
[2017-08-08] MEDS: PSYLLIUM SEED-SF 5.85 GM PACKET PO SCH (10:54)
[2017-08-08] MEDS: METOPROLOL SUCCINATE 25 MG TAB.SR.24H PO SCH (10:54)
[2017-08-08] MEDS: LACTULOSE SYRUP 20 GM/30 ML UDCUP PO SCH (10:55)
[2017-08-08 16:34] LABS: HEMATOCRIT 23.6 % (36.0-47.0); MEAN CORPUSCULAR HEMOGLOBIN 30.8 pg (27.0-33.4); MEAN CORPUSCULAR HGB CONC 33.6 g/dL (32.0-36.0); MEAN CORPUSCULAR VOLUME 92 fl (80-97); PLATELET COUNT 277 10^3/uL (150-450); RED BLOOD COUNT 2.57 10^6/uL (3.72-5.28); RED CELL DISTRIBUTION WIDTH 14.3 % (11.5-14.0); WHITE BLOOD COUNT 7.5 10^3/uL (4.0-10.5)
[2017-08-08 16:39] LABS: HEMOGLOBIN 7.9 g/dL (12.0-15.5)
--- NOTE | 2017-08-08 19:01 | PDOC PROGRESS REPORT ---
Subjective Progress Note for:: 08/08/17 Subjective:: Patient has had 2 BM today with improvement of her abdominal pain Reason For Visit: ACUTE GALLSTONE,PANCREATITIS,BLADDER OUTLET Physical Exam Vital Signs: Temp Pulse Resp BP Pulse Ox 99.6 F 89 16 128/62 H 95 08/08/17 16:14 08/08/17 16:14 08/08/17 03:53 08/08/17 16:14 08/08/17 16:14 Intake & Output 08/07/17 08/08/17 08/09/17 06:59 06:59 06:59 Intake Total 3400 Output Total 2200 Balance 1200 GI/Abdominal exam: PRESENT: soft, tenderness - in the suprapubic area Results Laboratory Results: 08/08/17 16:06 08/08/17 16:06 WBC 7.5 RBC 2.57 L Hgb 7.9 L Hct 23.6 L MCV 92 MCH 30.8 MCHC 33.6 RDW 14.3 H Plt Count 277 Impressions: Abdomen/Pelvis CT 08/06/17 23:58 IMPRESSION: 1. Cholelithiasis with minimal nonspecific pericholecystic fluid. Consider ultrasound and/or laboratory correlation, as clinically warranted. 2. Aortobiiliac repair appears grossly intact on nondedicated exam. There are small likely iatrogenic gas bubbles within the [place] AAA decreased in overall diameter. 3. Moderate-grade bladder outlet obstruction pattern including moderate bilateral hydronephrosis/hydroureter, right more than left. Similar process on prior exam, 07/15/2017. Urology consultation advised. Head CT 08/06/17 23:58 IMPRESSION: No acute findings. Abdomen Ultrasound 08/07/17 03:24 IMPRESSION: Cholelithiasis with positive sonographic Lopez's test. Differential diagnosis includes acute/chronic cholecystitis and biliary colic. Assessment & Plan - Diagnosis (1) Acute gallstone pancreatitis Is this a current diagnosis for this admission?: Yes - Plan Summary Plan Summary: A/ Patient abdominal pain improved Pancreatic enzymes normalizing Bowel function prsent with bowel movements today P/ Will hold off any procedure at this time as the pancreatitis is regressing and the abdominal pain is improved. patient is not a good surgical candidate.
[2017-08-08] MEDS: QUETIAPINE FUMARATE 25 MG TABLET PO SCH (22:13)
[2017-08-08] MEDS: SENNOSIDES/DOCUSATE 8.6-50 MG 1 EACH TABLET PO SCH (22:14)
[2017-08-09 03:31] VITALS: BP 135/85
[2017-08-09] MEDS: HEPARIN SOD (PORCINE) 5,000 UNIT/ML 1 ML SYRINGE SUBCUT SCH ×2 (05:10→17:43)
[2017-08-09] MEDS: CYANOCOBALAMIN (VITAMIN B-12) 1,000 MCG TABLET PO SCH (11:02)
[2017-08-09] MEDS: METOPROLOL SUCCINATE 25 MG TAB.SR.24H PO SCH (11:02)
[2017-08-09] MEDS: DOCUSATE SODIUM 100 MG CAPSULE PO SCH (11:03)
[2017-08-09] MEDS: THIAMINE HCL 100 MG TABLET PO SCH (11:03)
[2017-08-09] MEDS: ASPIRIN 81 MG TABLET, ENT COATED PO SCH (11:03)
[2017-08-09] MEDS: LANSOPRAZOLE 30 MG TAB.RAP.DR PO SCH (11:03)
[2017-08-09] MEDS: POLYETHYLENE GLYCOL 3350 POWDER 17 GM/1 PACKET PO SCH (11:04)
[2017-08-09] MEDS: LACTULOSE SYRUP 20 GM/30 ML UDCUP PO SCH (11:04)
[2017-08-09] MEDS: PSYLLIUM SEED-SF 5.85 GM PACKET PO SCH (11:04)
[2017-08-09 12:38] LABS: HEMATOCRIT 25.7 % (36.0-47.0); HEMOGLOBIN 8.6 g/dL (12.0-15.5); MEAN CORPUSCULAR HEMOGLOBIN 30.7 pg (27.0-33.4); MEAN CORPUSCULAR HGB CONC 33.7 g/dL (32.0-36.0); MEAN CORPUSCULAR VOLUME 91 fl (80-97); PLATELET COUNT 319 10^3/uL (150-450); RED BLOOD COUNT 2.81 10^6/uL (3.72-5.28); RED CELL DISTRIBUTION WIDTH 14.4 % (11.5-14.0); WHITE BLOOD COUNT 6.4 10^3/uL (4.0-10.5)
[2017-08-09 12:54] LABS: ALANINE AMINOTRANSFERASE 44 U/L (9-52); ALBUMIN 2.9 g/dL (3.5-5.0); ALKALINE PHOSPHATASE 190 U/L (38-126); ANION GAP 8 (5-19); ASPARTATE AMINO TRANSFERASE 40 U/L (14-36); BILIRUBIN,DIRECT 0.4 mg/dL (0.0-0.4); BILIRUBIN,TOTAL 0.4 mg/dL (0.2-1.3); BLOOD UREA NITROGEN 8 mg/dL (7-20); CALCIUM 8.4 mg/dL (8.4-10.2); CARBON DIOXIDE 23 mmol/L (22-30); CHLORIDE 109 mmol/L (98-107); GLUCOSE 105 mg/dL (75-110); POTASSIUM 4.2 mmol/L (3.6-5.0); SODIUM 140.1 mmol/L (137-145); TOTAL PROTEIN 6.1 g/dL (6.3-8.2)
[2017-08-09] MEDS: FLUTICASONE NASAL SPRAY 50 MCG/SPRY 120 SPRAY/16 GM NASL SCH (13:16)
--- NOTE | 2017-08-09 13:47 | PDOC TRANSFER SUMMARY ---
General - Admit/Disc Date/PCP Admission Date/Primary Care Provider: 08/08/17 12:30 Discharge Date: 08/09/17 - Discharge Diagnosis (1) Acute gallstone pancreatitis Is this a current diagnosis for this admission?: Yes (3) Anemia Is this a current diagnosis for this admission?: Yes (4) Dementia Is this a current diagnosis for this admission?: Yes (5) Fecal impaction in rectum Is this a current diagnosis for this admission?: Yes (6) AAA (abdominal aortic aneurysm) Is this a current diagnosis for this admission?: Yes Summary: No; redemonstrated on admission CT (7) Constipation Is this a current diagnosis for this admission?: Yes (8) AAA (abdominal aortic aneurysm) without rupture Is this a current diagnosis for this admission?: Yes - Additional Information Resuscitation Status: Do Not Resuscitate Discharge Diet: Regular Discharge Activity: Activity As Tolerated, Balance Activity w/Rest Prescriptions: Polyethylene Glycol 3350 [Miralax Powder 17 gm/Packet] 1 packet PO DAILY #30 powd.pack Home Medications: Acetaminophen [Tylenol 325 mg Tablet] 650 mg PO Q4HP PRN 08/07/17 Aspirin [Aspirin EC] 81 mg PO DAILY 08/07/17 Atorvastatin Calcium [Lipitor 10 mg Tablet] 10 mg PO DAILY 08/07/17 Cold Cream/Zinc Oxide/Star/Gordon [[place] Ointment] 1 applic TOP PRN PRN Cyanocobalamin (Vitamin B-12) [Vitamin B-12] 1,000 mcg PO DAILY 08/07/17 Docusate Sodium [Colace 100 mg Capsule] 100 mg PO BID 08/07/17 Fluticasone Propionate [Flonase Nasal [place] 50 Mcg/[place] 16 gm] 2 spray NASL DAILY 08/07/17 Haloperidol [Haldol 0.5 mg Tablet] 0.5 mg PO Q6HP PRN 08/07/17 Mag Hydrox/Al Hydrox/Simeth [Maalox Plus Susp 30 Udcup] 30 ml PO Q6HP PRN Magnesium Hydroxide [Milk of Magnesia 30 ml Udcup] 30 ml PO DAILYP PRN 08/07/17 Metoprolol Succinate [Toprol Xl 25 mg Tab.sr] 12.5 mg PO DAILY 08/07/17 Nitroglycerin [Nitrostat] 0.4 mg SL Q5MP PRN 08/07/17 Omeprazole 40 mg PO DAILY 08/07/17 Quetiapine Fumarate [Seroquel] 50 mg PO QHS 08/07/17 Sennosides [Senna] 2 tab PO QHS 08/07/17 Thiamine Mononitrate (Vit B1) [Vitamin B-1] 100 mg PO DAILY 08/07/17 Polyethylene Glycol 3350 [Miralax Powder 17 gm/Packet] 1 packet PO DAILY #30 powd.pack 08/09/17 History of Present Illness Admission Date/PCP: 08/08/17 12:30 History of Present Illness: Her H&P by Dr. Montenegro: SHAHBAZ ROSA is a 77 year old female residential resident with a history of Alzheimer's disease oriented to self but socially appropriate. History includes 6 cm abdominal aortic aneurysm, chronic bilateral hydronephrosis, stage II chronic kidney disease, cholelithiasis, and recurrent chronic constipation. Patient presents with left lower quadrant abdominal pain, CT abdomen and pelvis reveals chronicity and stability of the aortic aneurysm, hydronephrosis and cholelithiasis. It also shows marketed fecal impaction. In the emergency room she receives manual disimpaction is referred to the hospitalist for observation. Patient denies pain currently and requests something to eat. Hospital Course Hospital Course: Evaluation included a CT of the abdomen and pelvis revealed lithiasis with minimal nonspecific pericholecystic fluid. Aortobiiliac repair appears grossly intact on the nondedicated exam. Moderate grade bladder outlet obstruction pattern including moderate bilateral hydronephrosis/hydroureter as similarly seen on prior exam. A follow-up abdominal ultrasound was obtained and confirmedn ultrasound of the abdomen which revealed cholelithiasis with positive Lopez's test. Surgery was consulted and have recommended against a laparoscopic cholecystectomy at this time as her bowel function has returned to normal and her symptoms have resolved. The patient received a manual disimpaction with moderate results. She was placed on a bowel regimen including lactulose, Colace, and daily enema 3 days. She was initially n.p.o., and her diet advanced as symptoms resolved. She is now tolerating a regular diet and having having regular soft bowel movements. The patient recieved IV fluids with downward trend of her creatinine from 1.48- 1.02. Her hemoglobin has stabilized; today Hgb is 8.6. On day of discharge, the patient is stable, tolerating a regular diet, and having regular bowel movements. Has been cleared by surgery and is discharged to the [facility] where she is a long-term resident. Physical Exam Vital Signs: Temp Pulse Resp BP Pulse Ox 98.1 F 92 16 135/85 H 92 08/09/17 03:00 08/09/17 08:00 08/09/17 08:00 08/09/17 03:00 08/09/17 08:00 Intake & Output 08/08/17 08/09/17 08/10/17 06:59 06:59 06:59 Intake Total 4520 Output Total 3000 Balance 1520 Weight 49.8 kg General appearance: PRESENT: no acute distress, cooperative, thin, well- developed Head exam: PRESENT: atraumatic, normocephalic Eye exam: PRESENT: conjunctiva pink, EOMI, PERRLA. ABSENT: scleral icterus Ear exam: PRESENT: normal external ear exam Mouth exam: PRESENT: moist, tongue midline Neck exam: ABSENT: carotid bruit, JVD, lymphadenopathy, thyromegaly Respiratory exam: PRESENT: clear to auscultation kenn, symmetrical, unlabored. ABSENT: rales, rhonchi, wheezes Cardiovascular exam: PRESENT: RRR, +S1, +S2. ABSENT: diastolic murmur, rubs, systolic murmur Pulses: PRESENT: normal dorsalis pedis pul Vascular exam: PRESENT: normal capillary refill GI/Abdominal exam: PRESENT: normal bowel sounds, soft. ABSENT: distended, guarding, mass, organolmegaly, rebound, tenderness Rectal exam: PRESENT: deferred Extremities exam: PRESENT: full ROM. ABSENT: calf tenderness, clubbing, pedal edema Neurological exam: PRESENT: alert, awake, oriented to person, CN II-XII grossly intact, other - Pleasantly confused, socially appropriate, and cooperative. ABSENT: motor sensory deficit Psychiatric exam: PRESENT: appropriate affect, normal mood. ABSENT: homicidal ideation, suicidal ideation Skin exam: PRESENT: dry, intact, warm. ABSENT: cyanosis, rash Results Laboratory Results: 08/09/17 11:15 08/09/17 11:15 08/08/17 08/09/17 08/09/17 16:06 11:15 11:15 WBC 7.5 6.4 RBC 2.57 L 2.81 L Hgb 7.9 L 8.6 L Hct 23.6 L 25.7 L MCV 92 91 MCH 30.8 30.7 MCHC 33.6 33.7 RDW 14.3 H 14.4 H Plt Count 277 319 Sodium 140.1 Potassium 4.2 Chloride 109 H Carbon Dioxide 23 Anion Gap 8 BUN 8 Creatinine 1.02 Est GFR ( Amer) > 60 Est GFR (Non-Af Amer) 53 L Glucose 105 Calcium 8.4 Total Bilirubin 0.4 AST 40 H ALT 44 Alkaline Phosphatase 190 H Total Protein 6.1 L Albumin 2.9 L Impressions: Abdomen/Pelvis CT 08/06/17 23:58 IMPRESSION: 1. Cholelithiasis with minimal nonspecific pericholecystic fluid. Consider ultrasound and/or laboratory correlation, as clinically warranted. 2. Aortobiiliac repair appears grossly intact on nondedicated exam. There are small likely iatrogenic gas bubbles within the [place] AAA decreased in overall diameter. 3. Moderate-grade bladder outlet obstruction pattern including moderate bilateral hydronephrosis/hydroureter, right more than left. Similar process on prior exam, 07/15/2017. Urology consultation advised. Head CT 08/06/17 23:58 IMPRESSION: No acute findings. Abdomen Ultrasound 08/07/17 03:24 IMPRESSION: Cholelithiasis with positive sonographic Lopez's test. Differential diagnosis includes acute/chronic cholecystitis and biliary colic. Transfer Plan - Time Spent with Patient Time spent with patient: Less than 30 Minutes Qualifiers - * PATEINT BEING DISCHARGED WITH ANY OF THE FOLLOWING DIAGNOSIS?: No
--- NOTE | 2017-08-10 11:10 | Physician Advisory Note ---
Physician Advisor ProgressNote .: [facility] for this patient. Physician Advisor Statement: Please consider documenting, if you agree: 1. "Chronic ____ type anemia" (nutritional ____ deficiency? blood loss due to ____?) 2. type dementia Thanks! CK
== END 2017-08-09 17:15 | DRG 439 ==
LOC: ER 23:44 → EH 08-07 06:28 → 2S 08-07 12:05 → OBSVTOIN 08-08 12:30
PROVIDERS: ADMIT Internal Medicine; ATTEND Internal Medicine
DX: K85.10 Biliary acute pancreatitis without necrosis or infection (principal); E44.0 Moderate protein-calorie malnutrition; Z68.1 Body mass index [BMI] 19.9 or less, adult; N13.39 Other hydronephrosis; D64.9 Anemia, unspecified; K80.20 Calculus of gallbladder without cholecystitis without obstruction; G30.9 Alzheimer's disease, unspecified; F02.80 Dementia in other diseases classified elsewhere, unspecified severity, without behavioral disturbance, psychotic disturbance, mood disturbance, and anxiety; N18.2 Chronic kidney disease, stage 2 (mild); I71.4 Abdominal aortic aneurysm, without rupture; I25.10 Atherosclerotic heart disease of native coronary artery without angina pectoris; E78.5 Hyperlipidemia, unspecified; K21.9 Gastro-esophageal reflux disease without esophagitis; I10 Essential (primary) hypertension; Z66 Do not resuscitate; K56.41 Fecal impaction; Z98.890 Other specified postprocedural states
CPT/HCPCS: 36415; 51702; 70450; 74177; 76705; 80053; 81001; 83690; 85025; 85027; 87040; 96365; 99285; G0378; J0696; J1630; J1644; J2405; J3490; J7030

== ENCOUNTER 2017-08-12 09:17 | Emergency (ER) | payer MEDICARE ==
--- NOTE | 2017-08-12 09:51 | ER Document Report ---
ED General - General Chief Complaint: Abdominal Problem Stated Complaint: WEAKNESS Time Seen by Provider: 08/12/17 09:45 Mode of Arrival: Medic Information source: Patient Notes: 77-year-old female who presents from the [facility] nursing care facility with complaints according to EMS of a possible fall. Patient has severe dementia and does not remember today's events. She to me denies any pain. Specifically denies any headache, neck pain, chest pain, back pain, abdominal pain, or extremity pain. She is very pleasant but is not oriented to place, president, or year. I called the [facility] and spoke to Johnna. She states stent placed two weeks ago in [place] for a AAA stent. Supposedly this am states pt was sitting on the floor stating her abdomen hurt. No F, V, or diarrhea. She states that she has complained of intermittent abdominal pain for 6 months. TRAVEL OUTSIDE OF THE [place] IN LAST 30 DAYS: No - HPI Onset: Other - See above Onset/Duration: Gradual Quality of pain: Achy Severity: Mild Pain Level: Denies Associated symptoms: Other - See above Exacerbated by: Denies Relieved by: Denies Similar symptoms previously: No Recently seen / treated by doctor: No - Related Data Allergies/Adverse Reactions: No Known Allergies Allergy (Verified 08/07/17 00:42) Past Medical History - General Information source: Patient - Social History Smoking Status: Unknown if Ever Smoked Cigarette use (# per day): No Chew tobacco use (# tins/day): No Smoking Education Provided: No Family History: Reviewed & Not Pertinent, Other - Patient suffers from dementia Patient has suicidal ideation: No Patient has homicidal ideation: No - Past Medical History Cardiac Medical History: Reports: Hx Coronary Artery Disease, Hx Hypercholesterolemia, Hx Hypertension Renal/ Medical History: Denies: Hx Peritoneal Dialysis GI Medical History: Reports: Hx Gastroesophageal Reflux Disease Musculoskeltal Medical History: Reports Hx Arthritis Psychiatric Medical History: Reports: Hx Dementia - Alzheimer's Past Surgical History: Reports: Hx Abdominal Surgery, Hx Vascular Surgery - AAA biforcated stent placement - Immunizations Hx Diphtheria, Pertussis, Tetanus Vaccination: No Review of Systems - Review of Systems Constitutional: denies: Fever EENT: denies: Eye discharge, Nose discharge Respiratory: denies: Short of breath Gastrointestinal: Abdominal pain. denies: Vomiting Genitourinary: denies: Dysuria Musculoskeletal: denies: Leg swelling Skin: Other - no hives. denies: Rash Neurological/Psychological: Other - no slurred speech -: Yes All other systems reviewed and negative Physical Exam - Vital signs Vitals: Temp Pulse Resp BP Pulse Ox 99.2 F 89 18 132/68 H 95 08/12/17 09:22 08/12/17 09:22 08/12/17 09:22 08/12/17 09:22 08/12/17 09:22 Notes: Reviewed vital signs and nursing note as charted by RN. CONSTITUTIONAL: Alert and polite but not oriented at this time which is baseline for the patient. Well-appearing; well-nourished HEAD: Normocephalic; atraumatic EYES: Sclerae non-icteric ENT: Normal nose; no rhinorrhea; moist mucous membranes; pharynx without lesions noted NECK: Supple without meningismus; non-tender CARD: Regular rate and rhythm; no murmurs RESP: Normal chest excursion without splinting or tachypnea; breath sounds clear and equal bilaterally ABD/GI: Normal bowel sounds; non-distended; soft, non-tender currently to palpation of all 4 quadrants of the abdomen. No abdominal bruits or palpable masses. Very old midline surgical scar. I do not see any laparoscopy krause at this time BACK: The back appears normal and is non-tender to palpation, there is no CVA tenderness EXT: Normal ROM in all joints; non-tender to palpation; no edema SKIN: No acute lesions noted NEURO: Moves all extremities equally; Motor and sensory function intact PSYCH: The patient's mood and manner are appropriate. Grooming and personal hygiene are appropriate. Course - Re-evaluation Re-evalutation: 08/12/17 09:50 Given the history, physical, recent procedure, we will obtain basic labs as well as CT imaging of the abdomen and pelvis. If this is unremarkable, I believe it is reasonable to discharge the patient back to the facility. Patient complains of no pain at this time. 08/12/17 09:52 Reviewing the patient's medical chart it appears that the patient was actually discharged here 2 days ago secondary to some abdominal pain. Her H&P by Dr. Montenegro: SHAHBAZ ROSA is a 77 year old female [facility] resident with a history of Alzheimer's disease oriented to self but socially appropriate. History includes 6 cm abdominal aortic aneurysm, chronic bilateral hydronephrosis, stage II chronic kidney disease, cholelithiasis, and recurrent chronic constipation. Patient presents with left lower quadrant abdominal pain, CT abdomen and pelvis reveals chronicity and stability of the aortic aneurysm, hydronephrosis and cholelithiasis. It also shows marketed fecal impaction. In the emergency room she receives manual disimpaction is referred to the hospitalist for observation. Patient denies pain currently and requests something to eat. Hospital Course Hospital Course: Evaluation included a CT of the abdomen and pelvis revealed lithiasis with minimal nonspecific pericholecystic fluid. Aortobiiliac repair appears grossly intact on the nondedicated exam. Moderate grade bladder outlet obstruction pattern including moderate bilateral hydronephrosis/hydroureter as similarly seen on prior exam. A follow-up abdominal ultrasound was obtained and confirmedn ultrasound of the abdomen which revealed cholelithiasis with positive Lopez's test. Surgery was consulted and have recommended against a laparoscopic cholecystectomy at this time as her bowel function has returned to normal and her symptoms have resolved. The patient received a manual disimpaction with moderate results. Given this information we will obtain basic labs, liver panel, lipase, and a CT scan of the abdomen and pelvis for further evaluation. 08/12/17 12:31 Labs as recorded. We are waiting for CT imaging. 08/12/17 14:[address] as recorded. I performed a digital rectal examination I detect no obvious impaction. Patient had a bowel movement here in the emergency department that was brown in color with no obvious blood. Hemocult negative stool. Given the history, physical, still no tenderness objectively or subjectively, CT and imaging as recorded, I do not believe that the patient requires any further laboratory values or imaging at this time. Patient will be discharged home with strict return precautions and follow-up with the primary care provider. - Vital Signs Vital signs: Temp Pulse Resp BP Pulse Ox 99.2 F 89 20 161/88 H 100 08/12/17 09:22 08/12/17 09:22 08/12/17 11:46 08/12/17 11:46 08/12/17 11:46 - Laboratory Result Diagrams: 08/12/17 11:20 08/12/17 11:20 Laboratory results interpreted by me: 08/12/17 08/12/17 11:20 11:20 RBC 2.89 L Hgb 8.7 L Hct 26.2 L RDW 14.6 H Est GFR ( Amer) 53 L Est GFR (Non-Af Amer) 44 L AST 41 H Alkaline Phosphatase 150 H Discharge - Discharge Clinical Impression: Abdominal discomfort Condition: Good Disposition: HOME, SELF-CARE Additional Instructions: Come back immediately for any return of pain, fever, vomiting, change in mental status, or any other acute problems. Please follow up with the primary provider as we have discussed.
[2017-08-12] MEDS ORDERED: NORMAL SALINE 1000 ML 750 ML IV ONE (09:55)
[2017-08-12] MEDS ORDERED: LORAZEPAM INJ 2 MG/1 ML VIAL IV ONE (11:21)
[2017-08-12 11:41] LABS: ABSOLUTE BASOPHILS # (AUTO) 0.1 10^3/uL (0.0-0.2); ABSOLUTE EOSINOPHILS # (AUTO) 0.2 10^3/uL (0.0-0.6); ABSOLUTE LYMPHOCYTES (AUTO) 1.4 10^3/uL (0.5-4.7); ABSOLUTE MONOCYTES (AUTO) 0.6 10^3/uL (0.1-1.4); ABSOLUTE NEUT (AUTO) 4.1 10^3/uL (1.7-8.2); BASOPHILS % (AUTO) 1.1 % (0-2); HEMATOCRIT 26.2 % (36.0-47.0); HEMOGLOBIN 8.7 g/dL (12.0-15.5); LYMPHOCYTES % (AUTO) 21.4 % (13-45); MEAN CORPUSCULAR HEMOGLOBIN 30.1 pg (27.0-33.4); MEAN CORPUSCULAR HGB CONC 33.3 g/dL (32.0-36.0); MEAN CORPUSCULAR VOLUME 91 fl (80-97); MONOCYTES % (AUTO) 9.9 % (3-13); PLATELET COUNT 388 10^3/uL (150-450); RED BLOOD COUNT 2.89 10^6/uL (3.72-5.28); RED CELL DISTRIBUTION WIDTH 14.6 % (11.5-14.0); SEGMENTED NEUTROPHILS % (AUTO) 64.6 % (42-78); TOTAL CELLS COUNTED % (AUTO) 100 %; WHITE BLOOD COUNT 6.4 10^3/uL (4.0-10.5)
[2017-08-12 11:59] LABS: ALANINE AMINOTRANSFERASE 25 U/L (9-52); ALBUMIN 3.5 g/dL (3.5-5.0); ALKALINE PHOSPHATASE 150 U/L (38-126); ANION GAP 9 (5-19); ASPARTATE AMINO TRANSFERASE 41 U/L (14-36); BILIRUBIN,DIRECT 0.4 mg/dL (0.0-0.4); BILIRUBIN,TOTAL 0.4 mg/dL (0.2-1.3); BLOOD UREA NITROGEN 13 mg/dL (7-20); CALCIUM 8.6 mg/dL (8.4-10.2); CARBON DIOXIDE 27 mmol/L (22-30); CHLORIDE 104 mmol/L (98-107); GLUCOSE 93 mg/dL (75-110); LIPASE 229.8 U/L (23-300); POTASSIUM 4.7 mmol/L (3.6-5.0); SODIUM 140.3 mmol/L (137-145); TOTAL PROTEIN 7.4 g/dL (6.3-8.2)
[2017-08-12 12:22] LABS: APPEARANCE,URINE CLEAR; BILIRUBIN,URINE NEGATIVE (NEGATIVE); COLOR,URINE YELLOW; GLUCOSE, URINE NEGATIVE (NEGATIVE); KETONES,URINE NEGATIVE (NEGATIVE); LEUKOCYTE ESTERASE,URINE NEGATIVE (NEGATIVE); NITRITE,URINE NEGATIVE (NEGATIVE); PROTEIN,URINE NEGATIVE (NEGATIVE); URINE SPECIFIC GRAVITY 1.008; UROBILINOGEN,URINE NEGATIVE mg/dL (<2.0)
--- NOTE | 2017-08-12 12:57 | RADIOLOGY REPORT (SQ) ---
EXAM DESCRIPTION: CT ABD/PELVIS WITH IV ONLY COMPLETED DATE/TIME: 08/12/2017 12:15 pm REASON FOR STUDY: 4, abd pain; recent aaa repair; recent gall pancre COMPARISON: 08/07/2017 TECHNIQUE: CT scan of the abdomen and pelvis performed using helical scanning technique with dynamic intravenous contrast injection. No oral contrast. Images reviewed with lung, soft tissue, and bone windows. Reconstructed coronal and sagittal MPR images reviewed. Delayed images for evaluation of the urinary system also acquired. All images stored on PACS. All CT scanners at this facility use dose modulation, iterative reconstruction, and/or weight based d osing when appropriate to reduce radiation dose to as low as reasonably achievable (ALARA). [facility]: Dose Right [facility]: CareDose [facility]: Dose Right [facility]: Teradose 4D [facility]: Baifendian CONTRAST TYPE AND DOSE: contrast/concentration: Isovue 370.00 mg/ml; Total Contrast Delivered: 54.0 ml; Total Saline Delivered: 63.9 ml RENAL FUNCTION: Information not recorded RADIATION DOSE: CT Rad equipment meets quality standard of care and radiation dose reduction techniq ues were employed. CTDIvol: 5.1 - 6.4 mGy. DLP: 592 mGy-cm.. LIMITATIONS: None. FINDINGS: LOWER CHEST: Bibasilar atelectasis. LIVER: Normal size. No masses. No dilated ducts. SPLEEN: Normal size. No focal lesions. PANCREAS: No masses. No significant calcifications. No adjacent inflammation or peripancreatic fluid collections. Pancreatic duct not dilated. GALLBLADDER: Again multiple calcified gallstones noted within the gallbladder. No significant perich olecystic fluid noted. The gallbladder somewhat contracted. ADRENAL GLANDS: No significant masses or asymmetry. RIGHT KIDNEY AND URETER: Moderate to large hydronephrosis, similar to prior exam. The ureter is mild ly dilated as well. No significant calcifications. LEFT KIDNEY AND URETER: Mild to moderate hydronephrosis, similar to prior exam. The ureter is mildly dilated as well. No significant calcifications. AORTA AND VESSELS: Large abdominal aortic aneurysm measuring up to 6 cm in transaxial dimension, jamar lar to prior exam. Again noted are gas bubbles within the [place] aortic aneurysm. An aortoiliac gra ft is again noted. RETROPERITONEUM: No retroperitoneal adenopathy, hemorrhage or masses. BOWEL AND PERITONEAL CAVITY: There is a large amount of stool present. The rectum is dilated to 11 c m secondary to the large stool burden. APPENDIX: Not visualized. PELVIS: The bladder is displaced secondary to the large stool ball within the rectum. The wall of th e bladder is somewhat thickened. ABDOMINAL WALL: No masses. No hernias. BONES: No acute findings. Stable wedge deformity of L1. OTHER: No other significant finding. IMPRESSION: 1. Large stool burden dilating the rectum to 11 cm. 2. Bilateral hydronephrosis, similar to prior examination, likely due to partial obstruction from th e heavy stool burden. 3. Aortic aneurysm, similar in appearance to prior examination with gas bubbles noted within the shauna barrington aneurysm sac. This may be postoperative in nature. This may be related to the recent procedure. If no recent procedures, and in the possibility of an enteroaortic fistula was be considered. 4. Cholelithiasis without evidence of cholecystitis TECHNICAL DOCUMENTATION: JOB ID: [id number] Quality ID # [id number]: Final reports with documentation of one or more dose reduction techniques (e.g., Au tomated exposure control, adjustment of the mA and/or kV according to patient size, use of iterative reconstruction technique) 2010 [employer]- All Rights Reserved Reading location - IP/workstation name: [email or web address]
[2017-08-12 15:04] VITALS: BP 148/73
--- NOTE | 2017-08-12 17:24 | EKG REPORT ---
SEVERITY:- ABNORMAL ECG - SINUS RHYTHM LEFT ANTERIOR FASCICULAR BLOCK NONSPECIFIC T ABNORMALITIES, ANTERIOR LEADS : Confirmed by: Lacho Pedroza MD 12-Aug-2017 17:23:23
== END 2017-08-12 15:29 | disposition home or self-care (01) ==
LOC: ER 09:17
DX: R10.84 Generalized abdominal pain (principal); R53.1 Weakness; E78.00 Pure hypercholesterolemia, unspecified; I10 Essential (primary) hypertension; G30.9 Alzheimer's disease, unspecified; F02.80 Dementia in other diseases classified elsewhere, unspecified severity, without behavioral disturbance, psychotic disturbance, mood disturbance, and anxiety
CPT/HCPCS: 93005; 99285; 36415; 83690; 85025; 80053; 81001; 84484; 74177; 93010; J2060; J7030

== ENCOUNTER 2017-08-13 09:18 | Emergency (ER) | payer MEDICARE ==
--- NOTE | 2017-08-13 09:51 | ER Document Report ---
ED GI/ - General Chief Complaint: Nausea/Vomiting Stated Complaint: FLU LIKE SYMPTOMS Time Seen by Provider: 08/13/17 09:32 Notes: 77-year-old female who presents from the [facility] nursing [facility]. Patient was seen here yesterday for possible fall as well as some abdominal pain. Patient has severe dementia and does not remember today's events. She again at presentation today denies any and all pain. I called the [facility] and spoke to the nurse. Patient supposedly sitting today again and having some abdominal pain on the floor with vomiting 1. No fevers or diarrhea. As dictated yesterday, patient was recently admitted and discharged with a summary as recorded: "Her H&P by Dr. Montenegro: SHAHBAZ ROSA is a 77 year old female prison resident with a history of Alzheimer's disease oriented to self but socially appropriate. History includes 6 cm abdominal aortic aneurysm, chronic bilateral hydronephrosis, stage II chronic kidney disease, cholelithiasis, and recurrent chronic constipation. Patient presents with left lower quadrant abdominal pain, CT abdomen and pelvis reveals chronicity and stability of the aortic aneurysm, hydronephrosis and cholelithiasis. It also shows marketed fecal impaction. In the emergency room she receives manual disimpaction is referred to the hospitalist for observation. Patient denies pain currently and requests something to eat. Hospital Course Hospital Course: Evaluation included a CT of the abdomen and pelvis revealed lithiasis with minimal nonspecific pericholecystic fluid. Aortobiiliac repair appears grossly intact on the nondedicated exam. Moderate grade bladder outlet obstruction pattern including moderate bilateral hydronephrosis/hydroureter as similarly seen on prior exam. A follow-up abdominal ultrasound was obtained and confirmedn ultrasound of the abdomen which revealed cholelithiasis with positive Lopez's test. Surgery was consulted and have recommended against a laparoscopic cholecystectomy at this time as her bowel function has returned to normal and her symptoms have resolved. The patient received a manual disimpaction with moderate results. " Patient had labs, liver panel, lipase, CT scan of the abdomen and pelvis, and a urine analysis yesterday. She did have a normal bowel movement. Hemoccult negative. CT scan of the abdomen and pelvis showed no obstruction and a normal gallbladder. Patient again is denying any and all abdominal pain. TRAVEL OUTSIDE OF THE [place] IN LAST 30 DAYS: No - HPI Patient complains to provider of: Abdominal pain Onset: Other - See above Timing/Duration: Gradual Quality of pain: No pain Severity at maximum: Mild Severity in ED: None Pain Level: Denies Sexual history: Inactive Associated symptoms: Other - See above Exacerbated by: Denies Relieved by: Denies Similar symptoms previously: No Recently seen / treated by doctor: No - Related Data Allergies/Adverse Reactions: No Known Allergies Allergy (Verified 08/13/17 09:41) Past Medical History - General Information source: Patient - Social History Smoking Status: Never Smoker Cigarette use (# per day): No Chew tobacco use (# tins/day): No Smoking Education Provided: No Frequency of alcohol use: None Drug Abuse: None Family History: Reviewed & Not Pertinent, Other - Patient suffers from dementia Patient has suicidal ideation: No Patient has homicidal ideation: No - Past Medical History Cardiac Medical History: Reports: Hx Coronary Artery Disease, Hx Hypercholesterolemia, Hx Hypertension Renal/ Medical History: Denies: Hx Peritoneal Dialysis GI Medical History: Reports: Hx Gastroesophageal Reflux Disease Musculoskeltal Medical History: Reports Hx Arthritis Psychiatric Medical History: Reports: Hx Dementia - Alzheimer's Past Surgical History: Reports: Hx Abdominal Surgery, Hx Vascular Surgery - AAA biforcated stent placement - Immunizations Hx Diphtheria, Pertussis, Tetanus Vaccination: No Review of Systems - Review of Systems Constitutional: denies: Fever EENT: denies: Eye discharge, Nose discharge Cardiovascular: denies: Chest pain, Palpitations Respiratory: denies: Short of breath Gastrointestinal: denies: Vomiting Genitourinary: denies: Dysuria Musculoskeletal: denies: Leg swelling Skin: Other - no hives. denies: Rash Neurological/Psychological: Other - no slurred speech -: Yes All other systems reviewed and negative Physical Exam - Vital signs Vitals: Temp Pulse Resp BP Pulse Ox 98.8 F 91 18 114/64 94 08/13/17 09:30 08/13/17 09:30 08/13/17 09:30 08/13/17 09:30 08/13/17 09:30 Notes: Reviewed vital signs and nursing note as charted by RN. CONSTITUTIONAL: Alert and polite. Well-appearing; well-nourished HEAD: Normocephalic; atraumatic EYES: Sclerae non-icteric ENT: Moist mucous membranes; pharynx without lesions noted NECK: Supple without meningismus; non-tender CARD: Regular rate and rhythm; no murmurs RESP: Normal chest excursion without splinting or tachypnea; breath sounds clear and equal bilaterall ABD/GI: Normal bowel sounds; non-distended; soft, non-tender to deep palpation of all 4 quadrants of the abdomen. No palpable masses or abdominal bruits present BACK: The back appears normal and is non-tender to palpation, there is no CVA tenderness EXT: Normal ROM in all joints; non-tender to palpation; no cyanosis, no effusions, no edema SKIN: No acute lesions noted NEURO: Moves all extremities equally; Motor and sensory function intact PSYCH: The patient's mood and manner are appropriate. Grooming and personal hygiene are appropriate. Course - Re-evaluation Re-evalutation: 08/13/17 09:55 We will repeat the patient's liver panel and lipase. We will also attempt an enema. Patient had no impaction yesterday. Large stool burden according to CT yesterday but the patient did have a bowel movement. Patient denies any and all abdominal pain and has no tenderness to deep palpation of all 4 quadrants of the abdomen. Patient is a DNR/DNI patient. 08/13/17 11:33 Hemoglobin has improved. Lipase is only slightly elevated. Patient still has no tenderness to deep palpation of all 4 quadrants of the abdomen. Patient has been provided 2 enemas with good stool output. Hemoccult negative. I performed another rectal examination and still do not detect any fecal impaction. Given the above history, physical, CT yesterday, labs repeated here, no vomiting here, no tenderness on repeat examination, patient will be discharged back to the facility. - Vital Signs Vital signs: Temp Pulse Resp BP Pulse Ox 98.8 F 91 18 114/64 94 08/13/17 09:30 08/13/17 09:30 08/13/17 09:30 08/13/17 09:30 08/13/17 09:30 - Laboratory Result Diagrams: 08/13/17 09:33 08/13/17 09:33 Laboratory results interpreted by me: 08/13/17 08/13/17 09:33 09:33 RBC 3.09 L Hgb 9.4 L Hct 27.9 L RDW 14.3 H Est GFR ( Amer) 53 L Est GFR (Non-Af Amer) 44 L Glucose 139 H Alkaline Phosphatase 146 H Albumin 3.3 L Lipase 333.6 H Discharge - Discharge Clinical Impression: Abdominal pain Qualifiers: Abdominal location: unspecified location Qualified Code(s): R10.9 - Unspecified abdominal pain Vomiting Qualifiers: Vomiting type: unspecified Vomiting Intractability: non-intractable Nausea presence: unspecified Qualified Code(s): R11.10 - Vomiting, unspecified Condition: Good Additional Instructions: Come back immediately with any return of pain, persistent vomiting, fevers, or any other acute problems. Please make sure that the on-site provider sees and evaluates the patient tomorrow in the facility.
[2017-08-13 10:22] LABS: ABSOLUTE BASOPHILS # (AUTO) 0.1 10^3/uL (0.0-0.2); ABSOLUTE EOSINOPHILS # (AUTO) 0.1 10^3/uL (0.0-0.6); ABSOLUTE MONOCYTES (AUTO) 0.6 10^3/uL (0.1-1.4); ABSOLUTE NEUT (AUTO) 5.3 10^3/uL (1.7-8.2); BASOPHILS % (AUTO) 0.8 % (0-2); EOSINOPHILS % (AUTO) 1.6 % (0-6); HEMATOCRIT 27.9 % (36.0-47.0); HEMOGLOBIN 9.4 g/dL (12.0-15.5); LYMPHOCYTES % (AUTO) 14.1 % (13-45); MEAN CORPUSCULAR HEMOGLOBIN 30.5 pg (27.0-33.4); MEAN CORPUSCULAR HGB CONC 33.8 g/dL (32.0-36.0); MEAN CORPUSCULAR VOLUME 90 fl (80-97); MONOCYTES % (AUTO) 8.9 % (3-13); PLATELET COUNT 423 10^3/uL (150-450); RED BLOOD COUNT 3.09 10^6/uL (3.72-5.28); RED CELL DISTRIBUTION WIDTH 14.3 % (11.5-14.0); SEGMENTED NEUTROPHILS % (AUTO) 74.6 % (42-78); TOTAL CELLS COUNTED % (AUTO) 100 %; WHITE BLOOD COUNT 7.1 10^3/uL (4.0-10.5)
[2017-08-13 10:28] LABS: ALANINE AMINOTRANSFERASE 34 U/L (9-52); ALBUMIN 3.3 g/dL (3.5-5.0); ALKALINE PHOSPHATASE 146 U/L (38-126); ANION GAP 16 (5-19); ASPARTATE AMINO TRANSFERASE 36 U/L (14-36); BILIRUBIN,DIRECT 0.3 mg/dL (0.0-0.4); BILIRUBIN,TOTAL 0.3 mg/dL (0.2-1.3); BLOOD UREA NITROGEN 15 mg/dL (7-20); CALCIUM 8.5 mg/dL (8.4-10.2); CARBON DIOXIDE 25 mmol/L (22-30); CHLORIDE 98 mmol/L (98-107); GLUCOSE 139 mg/dL (75-110); LIPASE 333.6 U/L (23-300); POTASSIUM 4.2 mmol/L (3.6-5.0); SODIUM 138.7 mmol/L (137-145); TOTAL PROTEIN 6.9 g/dL (6.3-8.2)
[2017-08-13 12:38] VITALS: BP 152/87
== END 2017-08-13 12:39 | disposition home health service (06) ==
LOC: ER 09:18
DX: R11.2 Nausea with vomiting, unspecified (principal); R10.9 Unspecified abdominal pain
CPT/HCPCS: 36415; 80053; 83690; 85025; 99284

== ENCOUNTER 2017-11-26 17:36 | Inpatient (IN) | payer MEDICARE ==
[2017-11-26 18:08] LABS: ABSOLUTE BASOPHILS # (AUTO) 0.1 10^3/uL (0.0-0.2); ABSOLUTE EOSINOPHILS # (AUTO) 0.1 10^3/uL (0.0-0.6); ABSOLUTE LYMPHOCYTES (AUTO) 1.8 10^3/uL (0.5-4.7); ABSOLUTE MONOCYTES (AUTO) 1.1 10^3/uL (0.1-1.4); ABSOLUTE NEUT (AUTO) 9.1 10^3/uL (1.7-8.2); BASOPHILS % (AUTO) 1.2 % (0-2); EOSINOPHILS % (AUTO) 0.9 % (0-6); HEMATOCRIT 31.3 % (36.0-47.0); HEMOGLOBIN 10.6 g/dL (12.0-15.5); LYMPHOCYTES % (AUTO) 14.8 % (13-45); MEAN CORPUSCULAR HEMOGLOBIN 30.3 pg (27.0-33.4); MEAN CORPUSCULAR HGB CONC 33.7 g/dL (32.0-36.0); MEAN CORPUSCULAR VOLUME 90 fl (80-97); RED BLOOD COUNT 3.48 10^6/uL (3.72-5.28); SEGMENTED NEUTROPHILS % (AUTO) 74.1 % (42-78); TOTAL CELLS COUNTED % (AUTO) 100 %; WHITE BLOOD COUNT 12.2 10^3/uL (4.0-10.5)
[2017-11-26 18:17] LABS: ALBUMIN 4.1 g/dL (3.5-5.0); ANION GAP 18 (5-19); BILIRUBIN,DIRECT 0.7 mg/dL (0.0-0.4); BILIRUBIN,TOTAL 0.8 mg/dL (0.2-1.3); CARBON DIOXIDE 19 mmol/L (22-30); CHLORIDE 101 mmol/L (98-107); CREATINE KINASE 36 U/L (30-135); GLUCOSE 145 mg/dL (75-110); SODIUM 137.8 mmol/L (137-145); TOTAL PROTEIN 8.7 g/dL (6.3-8.2)
[2017-11-26 18:18] LABS: PLATELET COUNT 216 10^3/uL (150-450)
[2017-11-26 18:22] LABS: ALANINE AMINOTRANSFERASE 17 U/L (9-52); ALKALINE PHOSPHATASE 161 U/L (38-126); ASPARTATE AMINO TRANSFERASE 46 U/L (14-36); BLOOD UREA NITROGEN 43 mg/dL (7-20); POTASSIUM 5.4 mmol/L (3.6-5.0)
[2017-11-26 18:29] LABS: CREATINE KINASE MB 0.66 ng/mL (<4.55)
[2017-11-26 18:34] LABS: TROPONIN I < 0.012 ng/mL
[2017-11-26 19:14] LABS: ALANINE AMINOTRANSFERASE 22 U/L (9-52); ALBUMIN 4.2 g/dL (3.5-5.0); ALKALINE PHOSPHATASE 159 U/L (38-126); ANION GAP 15 (5-19); ASPARTATE AMINO TRANSFERASE 37 U/L (14-36); BILIRUBIN,DIRECT 0.5 mg/dL (0.0-0.4); BILIRUBIN,TOTAL 0.5 mg/dL (0.2-1.3); BLOOD UREA NITROGEN 42 mg/dL (7-20); CALCIUM 9.1 mg/dL (8.4-10.2); CARBON DIOXIDE 22 mmol/L (22-30); CHLORIDE 101 mmol/L (98-107); GLUCOSE 133 mg/dL (75-110); POTASSIUM 5.1 mmol/L (3.6-5.0); TOTAL PROTEIN 8.8 g/dL (6.3-8.2)
[2017-11-26] MEDS ORDERED: RINGERS SOLUTION,LACTATED 1,000 ML IV ONE (19:20)
[2017-11-26 19:27] LABS: APPEARANCE,URINE TURBID; BILIRUBIN,URINE NEGATIVE (NEGATIVE); COLOR,URINE YELLOW; GLUCOSE, URINE NEGATIVE (NEGATIVE); KETONES,URINE NEGATIVE (NEGATIVE); LEUKOCYTE ESTERASE,URINE LARGE (NEGATIVE); NITRITE,URINE NEGATIVE (NEGATIVE); PROTEIN,URINE 100 mg/dL (NEGATIVE); URINE SPECIFIC GRAVITY 1.013; UROBILINOGEN,URINE NEGATIVE mg/dL (<2.0)
[2017-11-26] MEDS ORDERED: PIPERACILLIN/TAZOBACTAM 2.25 GM VIAL IV ONE (19:38)
[2017-11-26] MEDS ORDERED: IPRATROPIUM/ALBUTEROL 0.5-2.5 MG/3 ML AMPUL NEB PRN (19:41)
[2017-11-26] MEDS ORDERED: GUAIFENESIN SYRP 200 MG/10 ML UDC PO PRN (19:41)
[2017-11-26] MEDS ORDERED: ACETAMINOPHEN 325 MG TABLET PO PRN ×2 (19:41→19:44)
[2017-11-26] MEDS ORDERED: HALOPERIDOL 0.5 MG TABLET PO PRN (19:44)
[2017-11-26] MEDS ORDERED: NITROGLYCERIN 0.4 MG/TAB 25 TAB/BOTTLE SL PRN (19:44)
[2017-11-26] MEDS ORDERED: MAGNESIUM HYDROXIDE SUSP 30 ML UDCUP PO PRN (19:44)
--- NOTE | 2017-11-26 19:44 | ER Document Report ---
ED General - General Chief Complaint: Syncope Stated Complaint: Syncope Time Seen by Provider: 11/26/17 18:36 Cannot obtain history due to: Dementia Notes: The patient is a 77-year-old female who presents from a nursing facility with concerns of syncope. The patient has a history of dementia, is uncertain what happened today or why she is here in the emergency department. She is unable to provide meaningful history. She was noted to be febrile by EMS and brought to the hospital as well as hypoxic to 86% on room air of which she does not have a baseline history. TRAVEL OUTSIDE OF THE [place] IN LAST 30 DAYS: No - Related Data Allergies/Adverse Reactions: No Known Allergies Allergy (Verified 08/13/17 09:41) Past Medical History - General Information source: Transfer Record, Emergency Med Personnel, [facility] Records - Social History Smoking Status: Never Smoker Chew tobacco use (# tins/day): No Frequency of alcohol use: None Drug Abuse: None Lives with: Retirement Family History: Reviewed & Not Pertinent, Other - Patient suffers from dementia Patient has suicidal ideation: No Patient has homicidal ideation: No - Past Medical History Cardiac Medical History: Reports: Hx Coronary Artery Disease, Hx Hypercholesterolemia, Hx Hypertension Renal/ Medical History: Denies: Hx Peritoneal Dialysis GI Medical History: Reports: Hx Gastroesophageal Reflux Disease Musculoskeltal Medical History: Reports Hx Arthritis Psychiatric Medical History: Reports: Hx Dementia - Alzheimer's Past Surgical History: Reports: Hx Abdominal Surgery, Hx Vascular Surgery - AAA biforcated stent placement - Immunizations Hx Diphtheria, Pertussis, Tetanus Vaccination: No Review of Systems - Review of Systems Notes: Constitutional: Positive for fever. HENT: Negative for sore throat. Eyes: Negative for visual changes. Cardiovascular: Negative for chest pain. Respiratory: Positive for shortness of breath. Gastrointestinal: Negative for abdominal pain, vomiting or diarrhea. Genitourinary: Negative for dysuria. Musculoskeletal: Negative for back pain. Skin: Negative for rash. Neurological: Negative for headaches, weakness or numbness. 10 point ROS negative except as marked above and in HPI. Physical Exam - Vital signs Vitals: Resp 19 11/26/17 17:55 Interpretation: Hypoxic, Tachypneic, Febrile Notes: PHYSICAL EXAMINATION: GENERAL: Moderately cachectic, no acute distress HEAD: Atraumatic, normocephalic. EYES: Pupils equal round and reactive to light, extraocular movements intact, sclera anicteric, conjunctiva are normal. ENT: nares patent, oropharynx clear without exudates. Dry mucous membranes. NECK: Normal range of motion, supple without lymphadenopathy LUNGS: Crackles and diminished breath sounds at the left base. No distress. Lung sounds otherwise clear. HEART: Regular rate and rhythm without murmurs ABDOMEN: Soft, nontender, normoactive bowel sounds. No guarding, no rebound. No masses appreciated. EXTREMITIES: Normal range of motion, no pitting or edema. No cyanosis. NEUROLOGICAL: No focal neurological deficits. Moves all extremities spontaneously and on command. PSYCH: Alert, oriented only to person SKIN: Warm, Dry, normal turgor, no rashes or lesions noted. Course - Re-evaluation Re-evalutation: 11/26/17 19:42 The patient presents after having a syncopal episode, found to be hypoxic to 86 % on room. The patient is demented, unable to provide additional meaningful history. On examination she does have diminished breath sounds and crackles at the left base but lungs are otherwise clear. Currently saturating 93% on 2 L by nasal cannula. Laboratories do show acute renal failure, GFR 21 to BUN/ creatinine ratio greater than 20 consistent with prerenal azotemia in the setting of dehydration. The patient also does appear quite clinically dehydrated on examination. Patient's urinalysis is also consistent with acute pyelonephritis. She will require coverage for hospital-acquired pneumonia as she does reside in a nursing facility. She has been started on IV Zosyn dosing for renal dysfunction. IV fluids are also being administered. I have discussed this case with Dr. Raphael Montenegro who has accepted the patient for hospitalization. - Vital Signs Vital signs: Temp Pulse Resp BP Pulse Ox 98.9 F 80 16 134/65 H 97 11/26/17 23:45 11/27/17 02:00 11/27/17 01:55 11/26/17 23:45 11/26/17 23:45 - Laboratory Result Diagrams: 11/26/17 17:20 11/26/17 18:50 Laboratory results interpreted by me: 11/26/17 11/26/17 11/26/17 17:20 17:20 18:50 WBC 12.2 H RBC 3.48 L Hgb 10.6 L Hct 31.3 L RDW 16.0 H Absolute Neutrophils 9.1 H Potassium 5.4 H 5.1 H Carbon Dioxide 19 L BUN 43 H 42 H Creatinine 2.24 H 2.27 H Est GFR ( Amer) 26 L 25 L Est GFR (Non-Af Amer) 21 L 21 L Glucose 145 H 133 H Direct Bilirubin 0.7 H 0.5 H AST 46 H 37 H Alkaline Phosphatase 161 H 159 H Total Protein 8.7 H 8.8 H Urine Protein Urine Blood Ur Leukocyte Esterase 11/26/17 19:10 WBC RBC Hgb Hct RDW Absolute Neutrophils Potassium Carbon Dioxide BUN Creatinine Est GFR ( Amer) Est GFR (Non-Af Amer) Glucose Direct Bilirubin AST Alkaline Phosphatase Total Protein Urine Protein 100 H Urine Blood SMALL H Ur Leukocyte Esterase LARGE H - Diagnostic Test Radiology reviewed: Image reviewed, Reports reviewed Radiology results interpreted by me: 11/26/17 19:41 Chest x-ray: Left lower lobe infiltrate - EKG Interpretation by Me Additional EKG results interpreted by me: 11/26/17 19:42 Sinus tachycardia. Rate 93. No ST elevations or depressions. QTC is 463. Discharge - Discharge Clinical Impression: Dehydration, Prerenal azotemia, Pyelonephritis, Hypoxia Left lower lobe pneumonia Qualifiers: Pneumonia type: due to unspecified organism Qualified Code(s): J18.1 - Lobar pneumonia, unspecified organism Dementia Qualifiers: Dementia type: unspecified type Dementia behavioral disturbance: without behavioral disturbance Qualified Code(s): F03.90 - Unspecified dementia without behavioral disturbance Condition: Fair Disposition: ADMITTED INPATIENT Admitting Provider: Hospitalist Unit Admitted: Telemetry
--- NOTE | 2017-11-26 19:56 | RADIOLOGY REPORT (SQ) ---
EXAM DESCRIPTION: CHEST SINGLE VIEW COMPLETED DATE/TIME: 11/26/2017 7:34 pm REASON FOR STUDY: hypoxia, fever COMPARISON: Chest x-ray 06/13/2017. EXAM PARAMETERS: NUMBER OF VIEWS: One view. TECHNIQUE: Single frontal radiographic view of the chest acquired. RADIATION DOSE: NA LIMITATIONS: None. FINDINGS: LUNGS AND PLEURA: No consolidation, pneumothorax or pleural effusion. MEDIASTINUM AND HILAR STRUCTURES: No masses. Contour normal. HEART AND VASCULAR STRUCTURES: Heart normal in size. Normal vasculature. BONES: No acute findings. HARDWARE: None in the chest. IMPRESSION: No acute radiographic finding in the chest. TECHNICAL DOCUMENTATION: JOB ID: [id number] [email or web address]- All Rights Reserved Reading location - IP/workstation name: [email or web address]
[2017-11-26] MEDS: IPRATROPIUM/ALBUTEROL 0.5-2.5 MG/3 ML AMPUL NEB SCH (20:39)
[2017-11-26] MEDS: NORMAL SALINE 1000 ML 1,000 ML IV SCH (22:47)
[2017-11-26] MEDS: QUETIAPINE FUMARATE 25 MG TABLET PO SCH (22:48)
[2017-11-26] MEDS: HEPARIN SOD (PORCINE) 5,000 UNIT/ML 1 ML SYRINGE SUBCUT SCH (22:49)
[2017-11-26] MEDS: SENNOSIDES/DOCUSATE 8.6-50 MG 1 EACH TABLET PO SCH (22:53)
[2017-11-27] MEDS: IPRATROPIUM/ALBUTEROL 0.5-2.5 MG/3 ML AMPUL NEB SCH ×4 (01:54→21:07)
[2017-11-27] MEDS: NORMAL SALINE 1000 ML 1,000 ML IV SCH (03:35)
[2017-11-27] MEDS: HEPARIN SOD (PORCINE) 5,000 UNIT/ML 1 ML SYRINGE SUBCUT SCH ×3 (06:30→21:17)
--- NOTE | 2017-11-27 07:44 | EKG REPORT ---
SEVERITY:- ABNORMAL ECG - SINUS RHYTHM LEFT ANTERIOR FASCICULAR BLOCK NONSPECIFIC T ABNORMALITIES, ANTERIOR LEADS : Confirmed by: Lacho Pedroza MD 27-Nov-2017 07:44:00
[2017-11-27] MEDS: POLYETHYLENE GLYCOL 3350 POWDER 17 GM/1 PACKET PO SCH (09:40)
[2017-11-27 09:42] LABS: ABSOLUTE MONOCYTES (AUTO) 0.5 10^3/uL (0.1-1.4); ABSOLUTE NEUT (AUTO) 3.4 10^3/uL (1.7-8.2); BASOPHILS % (AUTO) 0.8 % (0-2); EOSINOPHILS % (AUTO) 0.4 % (0-6); HEMATOCRIT 28.6 % (36.0-47.0); HEMOGLOBIN 9.7 g/dL (12.0-15.5); LYMPHOCYTES % (AUTO) 20.1 % (13-45); MEAN CORPUSCULAR HEMOGLOBIN 30.1 pg (27.0-33.4); MEAN CORPUSCULAR HGB CONC 33.9 g/dL (32.0-36.0); MEAN CORPUSCULAR VOLUME 89 fl (80-97); MONOCYTES % (AUTO) 10.7 % (3-13); PLATELET COUNT 201 10^3/uL (150-450); RED BLOOD COUNT 3.22 10^6/uL (3.72-5.28); RED CELL DISTRIBUTION WIDTH 16.3 % (11.5-14.0); TOTAL CELLS COUNTED % (AUTO) 100 %
[2017-11-27] MEDS: METOPROLOL SUCCINATE 25 MG TAB.SR.24H PO SCH (09:42)
[2017-11-27] MEDS: DOCUSATE SODIUM 100 MG CAPSULE PO SCH (09:42)
[2017-11-27] MEDS: ASPIRIN 81 MG TABLET, ENT COATED PO SCH (09:43)
[2017-11-27] MEDS: FLUTICASONE NASAL SPRAY 50 MCG/SPRY 120 SPRAY/16 GM NASL SCH (09:43)
[2017-11-27 10:14] LABS: ANION GAP 12 (5-19); BLOOD UREA NITROGEN 32 mg/dL (7-20); CALCIUM 8.6 mg/dL (8.4-10.2); CARBON DIOXIDE 21 mmol/L (22-30); CHLORIDE 109 mmol/L (98-107); GLUCOSE 123 mg/dL (75-110); POTASSIUM 4.7 mmol/L (3.6-5.0); SODIUM 141.6 mmol/L (137-145)
--- NOTE | 2017-11-27 18:04 | PDOC PROGRESS REPORT ---
Subjective Progress Note for:: 11/27/17 Subjective:: She is seen resting in bed. She presently is awake and alert, she is disoriented 3. There is presently no family at the bedside. Review of systems cannot be obtained due to patient's mentation. Nursing report no issues overnight. Reason For Visit: ARF/UTI/PNEUMONIA Physical Exam Vital Signs: Temp Pulse Resp BP Pulse Ox 99.8 F 93 18 130/65 H 92 11/27/17 08:32 11/27/17 14:25 11/27/17 14:25 11/27/17 08:32 11/27/17 14:25 Intake & Output 11/26/17 11/27/17 11/28/17 06:59 06:59 06:59 Intake Total 1613 Balance 1613 Weight 47 kg General appearance: PRESENT: no acute distress, thin, well-developed Head exam: PRESENT: atraumatic, normocephalic Eye exam: PRESENT: conjunctiva pink, EOMI, PERRLA. ABSENT: scleral icterus Ear exam: PRESENT: normal external ear exam Mouth exam: PRESENT: moist, tongue midline Teeth exam: PRESENT: edentulous Neck exam: ABSENT: carotid bruit, JVD, lymphadenopathy, thyromegaly Respiratory exam: PRESENT: clear to auscultation kenn, symmetrical, unlabored Cardiovascular exam: PRESENT: RRR. ABSENT: diastolic murmur, rubs, systolic murmur Pulses: PRESENT: normal carotid pulses, normal radial pulses Vascular exam: PRESENT: normal capillary refill GI/Abdominal exam: PRESENT: normal bowel sounds, soft. ABSENT: distended, guarding, mass, organolmegaly, rebound, tenderness Rectal exam: PRESENT: deferred Extremities exam: PRESENT: full ROM. ABSENT: calf tenderness, clubbing, pedal edema Musculoskeletal exam: PRESENT: full ROM, normal inspection Neurological exam: PRESENT: alert, altered, awake, CN II-XII grossly intact Psychiatric exam: PRESENT: flat affect Skin exam: PRESENT: dry, intact, warm. ABSENT: cyanosis, rash Results Laboratory Results: 11/27/17 09:00 11/27/17 09:00 11/27/17 11/27/17 09:00 09:00 WBC 5.0 RBC 3.22 L Hgb 9.7 L Hct 28.6 L MCV 89 MCH 30.1 MCHC 33.9 RDW 16.3 H Plt Count 201 Seg Neutrophils % 68.0 Lymphocytes % 20.1 Monocytes % 10.7 Eosinophils % 0.4 Basophils % 0.8 Absolute Neutrophils 3.4 Absolute Lymphocytes 1.0 Absolute Monocytes 0.5 Absolute Eosinophils 0.0 Absolute Basophils 0.0 Sodium 141.6 Potassium 4.7 Chloride 109 H Carbon Dioxide 21 L Anion Gap 12 BUN 32 H Creatinine 1.91 H Est GFR ( Amer) 31 L Est GFR (Non-Af Amer) 26 L Glucose 123 H Calcium 8.6 Impressions: Chest X-Ray 11/26/17 19:19 IMPRESSION: No acute radiographic finding in the chest. Assessment & Plan - Diagnosis (1) Hypoxia Is this a current diagnosis for this admission?: Yes Plan: Possible early left lower lobe pneumonia. We will continue to hydrate, with antibiotics and repeat chest x-ray. Certainly at risk for aspiration with her dementia. (2) Acute on chronic renal failure Is this a current diagnosis for this admission?: Yes Plan: Secondary to poor oral intake, dehydration. Improving with IV hydration. (3) Anemia Qualifiers: Is this a current diagnosis for this admission?: Yes (4) DNR (do not resuscitate) Is this a current diagnosis for this admission?: Yes (5) Moderate protein-calorie malnutrition Is this a current diagnosis for this admission?: Yes Plan: Liberalize diet with nutritional supplements. (6) UTI (urinary tract infection) Qualifiers: Encounter type: initial encounter Is this a current diagnosis for this admission?: Yes Plan: Urine cultures pending. Continue IV broad-spectrum antibiotics. (8) Dementia Qualifiers: Dementia type: unspecified type Dementia behavioral disturbance: without behavioral disturbance Qualified Code(s): F03.90 - Unspecified dementia without behavioral disturbance Is this a current diagnosis for this admission?: Yes - Time Time Spent with patient: 25-34 minutes Total Critical Time (Minutes): 25 Medications reviewed and adjusted accordingly: Yes Anticipated discharge: SNF
[2017-11-27] MEDS: ATORVASTATIN CALCIUM 10 MG TABLET PO SCH (21:16)
[2017-11-27] MEDS: QUETIAPINE FUMARATE 25 MG TABLET PO SCH (21:17)
[2017-11-27] MEDS: SENNOSIDES/DOCUSATE 8.6-50 MG 1 EACH TABLET PO SCH (21:17)
[2017-11-28] MEDS: IPRATROPIUM/ALBUTEROL 0.5-2.5 MG/3 ML AMPUL NEB SCH ×4 (03:31→20:25)
[2017-11-28] MEDS: HEPARIN SOD (PORCINE) 5,000 UNIT/ML 1 ML SYRINGE SUBCUT SCH ×3 (05:35→21:42)
--- NOTE | 2017-11-28 06:55 | PDOC H&P ---
History of Present Illness Admission Date/PCP: 11/26/17 19:52 Patient complains of: Syncope History of Present Illness: SHAHBAZ ROSA is a 77 year old female residential resident, with a history of dementia, 6 cm abdominal aortic aneurysm, chronic bilateral hydronephrosis, stage II chronic kidney disease, cholelithiasis and recurrent, chronic constipation. Unable to provide history herself it is obtained by the record. She is found by residential staff to have fever, hypoxia brought to the emergency room for evaluation where she is found to have an exam suggestive of left sided pneumonia, Leukocytosis and fever. Urinalysis is also suggestive of pyuria. She receives empiric antibiotics and referred to the hospitalist for admission. Past Medical History Cardiac Medical History: Reports: Coronary Artery Disease, Hyperlipidema, Hypertension GI Medical History: Reports: Gastroesophageal Reflux Disease Musculoskeltal Medical History: Reports: Arthritis Psychiatric Medical History: Reports: Dementia - Alzheimer's Past Surgical History Past Surgical History: Reports: Vascular Surgery - AAA biforcated stent placement Social History Information Source: Emergency Med Personnel, [facility] Records Lives with: [facility] Smoking Status: Never Smoker Frequency of Alcohol Use: None Hx Recreational Drug Use: No Drugs: None Hx Prescription Drug Abuse: No - Advance Directive Resuscitation Status: Full Code Family History Family History: Other - Patient suffers from dementia Parental Family History Reviewed: Yes Children Family History Reviewed: Yes Sibling(s) Family History Reviewed.: Yes Medication/Allergy Home Medications: Acetaminophen [Mapap] 500 mg PO TID 11/27/17 Aspirin [Adult Low Dose Aspirin EC] 81 mg PO QAM 11/27/17 Atorvastatin Calcium [Lipitor 10 mg Tablet] 10 mg PO QHS 11/27/17 Cold Cream/Zinc Oxide/Star/Gordon [Dermacloud Ointment] 1 applic TOP PRN PRN Cyanocobalamin (Vitamin B-12) [Vitamin B-12] 1,000 mcg PO QAM 11/27/17 Docusate Sodium [Colace 100 mg Capsule] 100 mg PO BID 11/27/17 Fluticasone Propionate [Flonase Nasal Griffin 50 Mcg/Griffin 16 gm] 2 spray NASL DAILY 11/27/17 Guaifenesin [Robafen] 10 ml PO Q4HP PRN 11/27/17 Haloperidol [Haldol 0.5 mg Tablet] 0.5 mg PO Q6HP PRN 11/27/17 Mag Hydrox/Al Hydrox/Simeth [Maalox Plus Susp 30 Udcup] 30 ml PO Q6HP PRN Magnesium Hydroxide [Milk of Magnesia 30 ml Udcup] 30 ml PO PRN PRN 11/27/17 Metoprolol Succinate [Toprol Xl 25 mg Tab.sr] 12.5 mg PO DAILY 11/27/17 Mirtazapine 7.5 mg PO QHS 11/27/17 Nitroglycerin [Nitrostat 0.4 mg (1/150 Gr) Tabs 25/Bottle] 0.4 mg SL Q5MP PRN Omeprazole 40 mg PO QAM 11/27/17 Polyethylene Glycol 3350 [Miralax Powder 17 gm/Packet] 17 gm PO QAM 11/27/17 Quetiapine Fumarate [Seroquel] 50 mg PO QHS 11/27/17 Sennosides [Senna] 17.2 mg PO QHS 11/27/17 Thiamine Mononitrate (Vit B1) [Vitamin B-1] 100 mg PO QAM 11/27/17 Allergies/Adverse Reactions: No Known Allergies Allergy (Verified 08/13/17 09:41) Review of Systems ROS unobtainable: Due to mental status - Unobtainable Physical Exam Vital Signs: Temp Pulse Resp BP Pulse Ox 98.6 F 84 16 126/55 H 94 11/28/17 03:03 11/28/17 03:03 11/28/17 03:03 11/28/17 03:03 11/28/17 03:03 Intake & Output 11/26/17 11/27/17 11/28/17 11:59 11:59 11:59 Intake Total 1613 4034 Balance 1613 4034 Weight 47 kg 45.6 kg General appearance: PRESENT: cooperative, disheveled, mild distress, thin Head exam: PRESENT: atraumatic, normocephalic Eye exam: PRESENT: conjunctiva pink, EOMI, PERRLA. ABSENT: scleral icterus Ear exam: PRESENT: normal external ear exam Mouth exam: PRESENT: moist, tongue midline Neck exam: ABSENT: carotid bruit, JVD, lymphadenopathy, thyromegaly Respiratory exam: PRESENT: accessory muscle use, crackles, prolonged expiratory phas, retraction, rhonchi, tachypnea Cardiovascular exam: PRESENT: RRR. ABSENT: diastolic murmur, rubs, systolic murmur Pulses: PRESENT: normal dorsalis pedis pul Vascular exam: PRESENT: normal capillary refill GI/Abdominal exam: PRESENT: normal bowel sounds, soft. ABSENT: distended, guarding, mass, organolmegaly, rebound, tenderness Rectal exam: PRESENT: deferred Extremities exam: PRESENT: full ROM. ABSENT: calf tenderness, clubbing, pedal edema Neurological exam: PRESENT: alert, awake, oriented to person, CN II-XII grossly intact. ABSENT: motor sensory deficit Psychiatric exam: PRESENT: agitated, anxious, normal mood. ABSENT: homicidal ideation, suicidal ideation Skin exam: PRESENT: dry, intact, warm. ABSENT: cyanosis, rash Results Laboratory Results: 11/27/17 09:00 11/27/17 09:00 11/27/17 11/27/17 09:00 09:00 WBC 5.0 RBC 3.22 L Hgb 9.7 L Hct 28.6 L MCV 89 MCH 30.1 MCHC 33.9 RDW 16.3 H Plt Count 201 Seg Neutrophils % 68.0 Lymphocytes % 20.1 Monocytes % 10.7 Eosinophils % 0.4 Basophils % 0.8 Absolute Neutrophils 3.4 Absolute Lymphocytes 1.0 Absolute Monocytes 0.5 Absolute Eosinophils 0.0 Absolute Basophils 0.0 Sodium 141.6 Potassium 4.7 Chloride 109 H Carbon Dioxide 21 L Anion Gap 12 BUN 32 H Creatinine 1.91 H Est GFR ( Amer) 31 L Est GFR (Non-Af Amer) 26 L Glucose 123 H Calcium 8.6 Impressions: Chest X-Ray 11/26/17 19:19 IMPRESSION: No acute radiographic finding in the chest. Assessment & Plan - Diagnosis (1) Left lower lobe pneumonia Qualifiers: Pneumonia type: due to unspecified organism Qualified Code(s): J18.1 - Lobar pneumonia, unspecified organism Is this a current diagnosis for this admission?: Yes Plan: Telemetry admission, pneumonia care set, empiric antibiotics, albuterol and Atrovent with incentive spirometry. (2) Dementia Qualifiers: Dementia type: unspecified type Dementia behavioral disturbance: without behavioral disturbance Qualified Code(s): F03.90 - Unspecified dementia without behavioral disturbance Is this a current diagnosis for this admission?: Yes Plan: Supportive care (3) Hypoxia Is this a current diagnosis for this admission?: Yes Plan: Supplemental oxygen and BiPAP as tolerated as needed (4) Prerenal azotemia Is this a current diagnosis for this admission?: Yes Plan: At baseline, avoid nephrotoxic meds and doses IV fluid challenge, follow-up chemistry (5) UTI (urinary tract infection) Qualifiers: Encounter type: initial encounter Is this a current diagnosis for this admission?: Yes Plan: Empiric antibiotics initiated, follow-up CBC, urine culture. - Time Time Spent: 30 to 50 Minutes - Inpatient Certification Medical Necessity: Need Close Monitoring Due to Risk of Patient Decompensation
[2017-11-28] MEDS: POLYETHYLENE GLYCOL 3350 POWDER 17 GM/1 PACKET PO SCH (09:34)
[2017-11-28] MEDS: DOCUSATE SODIUM 100 MG CAPSULE PO SCH (09:35)
[2017-11-28] MEDS: METOPROLOL SUCCINATE 25 MG TAB.SR.24H PO SCH (09:35)
[2017-11-28] MEDS: ASPIRIN 81 MG TABLET, ENT COATED PO SCH (09:37)
[2017-11-28] MEDS: FLUTICASONE NASAL SPRAY 50 MCG/SPRY 120 SPRAY/16 GM NASL SCH (09:37)
[2017-11-28] MEDS ORDERED: CEFEPIME 2 GM/D5W RTU 2 GM/50 ML RTUPB IV ONE (14:00)
--- NOTE | 2017-11-28 18:35 | PDOC PROGRESS REPORT ---
Subjective Progress Note for:: 11/28/17 Subjective:: SHAHBAZ ROSA is a 77 y.o. F with a PMH of dementia, AAA, chronic bilateral hydronephrosis, CKD stage II, cholelithiasis, chronic constipation. She presented to the ED on 11/26/2017 for fever and hypoxia. CXR revealed LLL pneumonia. Urinalysis also suggestive of UTI, urine culture positive for E. coli. Patient was seen this morning on rounds, she is resting comfortably in bed on room air. The patient states she feels 'lousy' but is unable to verbalize specific symptoms. She denies chest pain, shortness of breath, fever, chills, or dysuria. The patient is alert and oriented to self ONLY, disoriented to time , place, and situation. Reason For Visit: ARF/UTI/PNEUMONIA Physical Exam Vital Signs: Temp Pulse Resp BP Pulse Ox 98.9 F 93 18 139/65 H 96 11/28/17 15:34 11/28/17 15:34 11/28/17 15:34 11/28/17 15:34 11/28/17 15:34 Intake & Output 11/27/17 11/28/17 11/29/17 06:59 06:59 06:59 Intake Total 1613 4034 354 Balance 1613 4034 354 Weight 47 kg 45.6 kg General appearance: PRESENT: no acute distress, thin Eye exam: PRESENT: conjunctiva pink, PERRLA Mouth exam: PRESENT: moist Neck exam: PRESENT: full ROM Respiratory exam: PRESENT: clear to auscultation kenn, symmetrical, unlabored Cardiovascular exam: PRESENT: +S1, +S2 Pulses: PRESENT: normal radial pulses, normal dorsalis pedis pul GI/Abdominal exam: PRESENT: normal bowel sounds, soft. ABSENT: tenderness Rectal exam: PRESENT: deferred Extremities exam: PRESENT: full ROM Musculoskeletal exam: PRESENT: ambulatory, full ROM Neurological exam: PRESENT: alert, awake, oriented to person. ABSENT: oriented to place, oriented to time, oriented to situation Psychiatric exam: PRESENT: other - CONFUSION, DEMENTIA Skin exam: PRESENT: dry, intact, warm Results Laboratory Results: 11/27/17 09:00 11/27/17 09:00 Impressions: Chest X-Ray 11/26/17 19:19 IMPRESSION: No acute radiographic finding in the chest. Status: Imported from PACS Assessment & Plan - Diagnosis (1) Left lower lobe pneumonia Qualifiers: Pneumonia type: due to unspecified organism Qualified Code(s): J18.1 - Lobar pneumonia, unspecified organism Is this a current diagnosis for this admission?: Yes Plan: Patient presented from detention with fever and hypoxia CXR revealed LLL pneumonia. Treated with 1 dose of Zosyn in the emergency department. No antibiotic therapy within the last 24 hours, unclear reasoning. Initiate cefepime 2 g IV q8hr for healthcare associated pneumonia. If febrile > 101, will re-culture (2) UTI (urinary tract infection) Qualifiers: Encounter type: initial encounter Is this a current diagnosis for this admission?: Yes Plan: Urinalysis upon admission indicative of UTI. Urine culture positive for E. coli, sensitive to cefepime. Initiate cefepime 2 g IV q8h - double coverage for PNA and UTI If febrile > 101, will need to re-culture (3) Prerenal azotemia Is this a current diagnosis for this admission?: Yes Plan: Improving. Likely secondary to dehydration stemming from acute infection. Creatinine improved from 2.4 to 1.9. Baseline creatinine 1.0 Continue maintenance IVF. (4) Dementia Qualifiers: Dementia type: unspecified type Dementia behavioral disturbance: without behavioral disturbance Qualified Code(s): F03.90 - Unspecified dementia without behavioral disturbance Is this a current diagnosis for this admission?: Yes - Time Time Spent with patient: 15-24 minutes Medications reviewed and adjusted accordingly: Yes Anticipated discharge: Acute Rehab - Inpatient Certification Based on my medical assessment, after consideration of the patient's comorbidities, presenting symptoms, or acuity I expect that the services needed warrant INPATIENT care.: Yes I certify that my determination is in accordance with my understanding of Medicare's requirements for reasonable and necessary INPATIENT services [42 CFR 412.3e].: Yes Medical Necessity: Risk of Complication if Not Cared For in Hospital - Plan Summary Plan Summary: Following antibiotic treatment, patient can be discharged back to residential facility.
[2017-11-28] MEDS: CEFEPIME 2 GM/D5W RTU 2 GM/50 ML RTUPB IV SCH (21:38)
[2017-11-28] MEDS: NORMAL SALINE 1000 ML 1,000 ML IV PRN (21:38)
[2017-11-28] MEDS: SENNOSIDES/DOCUSATE 8.6-50 MG 1 EACH TABLET PO SCH (21:42)
[2017-11-28] MEDS: QUETIAPINE FUMARATE 25 MG TABLET PO SCH (21:42)
[2017-11-28] MEDS: ATORVASTATIN CALCIUM 10 MG TABLET PO SCH (21:42)
[2017-11-29] MEDS: IPRATROPIUM/ALBUTEROL 0.5-2.5 MG/3 ML AMPUL NEB SCH ×4 (01:05→20:45)
[2017-11-29] MEDS: HEPARIN SOD (PORCINE) 5,000 UNIT/ML 1 ML SYRINGE SUBCUT SCH ×3 (06:04→21:23)
[2017-11-29] MEDS ORDERED: HALOPERIDOL LACTATE INJ 5 MG/1 ML VIAL IV ONE (08:52)
[2017-11-29] MEDS ORDERED: HALOPERIDOL LACTATE INJ 5 MG/1 ML VIAL ONE (09:01)
[2017-11-29] MEDS: METOPROLOL SUCCINATE 25 MG TAB.SR.24H PO SCH (09:10)
[2017-11-29] MEDS: ASPIRIN 81 MG TABLET, ENT COATED PO SCH (09:11)
[2017-11-29] MEDS: DOCUSATE SODIUM 100 MG CAPSULE PO SCH (09:11)
[2017-11-29] MEDS: POLYETHYLENE GLYCOL 3350 POWDER 17 GM/1 PACKET PO SCH (09:11)
[2017-11-29] MEDS: CEFEPIME 2 GM/D5W RTU 2 GM/50 ML RTUPB IV SCH ×2 (09:12→21:23)
[2017-11-29] MEDS: FLUTICASONE NASAL SPRAY 50 MCG/SPRY 120 SPRAY/16 GM NASL SCH (09:13)
[2017-11-29 12:13] LABS: ANION GAP 13 (5-19); BLOOD UREA NITROGEN 24 mg/dL (7-20); CALCIUM 9.1 mg/dL (8.4-10.2); CARBON DIOXIDE 21 mmol/L (22-30); CHLORIDE 110 mmol/L (98-107); GLUCOSE 148 mg/dL (75-110); PHOSPHORUS 3.1 mg/dL (2.5-4.5); POTASSIUM 4.6 mmol/L (3.6-5.0); SODIUM 143.6 mmol/L (137-145)
--- NOTE | 2017-11-29 21:06 | PDOC PROGRESS REPORT ---
Subjective Progress Note for:: 11/29/17 Subjective:: SHAHBAZ ROSA is a 77 y.o. F with a PMH of dementia, AAA, chronic bilateral hydronephrosis, CKD stage II, cholelithiasis, chronic constipation. She presented to the ED on 11/26/2017 for fever and hypoxia. CXR revealed LLL pneumonia. Urinalysis also suggestive of UTI, urine culture positive for E. coli. Patient was seen this morning on rounds, she is resting comfortably in bed on room air. The patient would not open her eyes when stimulated - she would pull the covers over herself when removed, her face was scowling (despite her eyes being closed), and the patient would not answer questions when asked. Nursing staff reported there was no change in her mental status, she was still only oriented to self. Reason For Visit: ARF/UTI/PNEUMONIA Physical Exam Vital Signs: Temp Pulse Resp BP Pulse Ox 97.9 F 96 16 115/55 L 96 11/29/17 16:06 11/29/17 19:00 11/29/17 16:06 11/29/17 16:06 11/29/17 16:06 Intake & Output 11/28/17 11/29/17 11/30/17 06:59 06:59 06:59 Intake Total 4034 3171 1729 Output Total 706 200 Balance 4034 2465 1529 Weight 45.6 kg 59 kg General appearance: PRESENT: no acute distress Eye exam: PRESENT: conjunctiva pink, PERRLA Mouth exam: PRESENT: moist Teeth exam: PRESENT: poor dentation Neck exam: PRESENT: full ROM Respiratory exam: PRESENT: clear to auscultation kenn, symmetrical, unlabored Cardiovascular exam: PRESENT: +S1, +S2 Pulses: PRESENT: normal radial pulses, normal dorsalis pedis pul Vascular exam: PRESENT: normal capillary refill GI/Abdominal exam: PRESENT: normal bowel sounds, soft. ABSENT: tenderness Rectal exam: PRESENT: deferred Extremities exam: PRESENT: full ROM Musculoskeletal exam: PRESENT: ambulatory, full ROM Neurological exam: PRESENT: oriented to person. ABSENT: oriented to place, oriented to time, oriented to situation Skin exam: PRESENT: dry, intact, warm Results Laboratory Results: 11/27/17 09:00 11/29/17 11:35 11/29/17 11/29/17 10:14 11:35 Sodium Cancelled 143.6 Potassium Cancelled 4.6 Chloride Cancelled 110 H Carbon Dioxide Cancelled 21 L Anion Gap Cancelled 13 BUN Cancelled 24 H Creatinine Cancelled 1.41 H Est GFR ( Amer) Cancelled 44 L Est GFR (Non-Af Amer) Cancelled 36 L Glucose Cancelled 148 H Calcium Cancelled 9.1 Phosphorus Cancelled 3.1 Magnesium Cancelled 2.2 Impressions: Chest X-Ray 11/26/17 19:19 IMPRESSION: No acute radiographic finding in the chest. Status: Imported from PACS Assessment & Plan - Diagnosis (1) Left lower lobe pneumonia Qualifiers: Pneumonia type: due to unspecified organism Qualified Code(s): J18.1 - Lobar pneumonia, unspecified organism Is this a current diagnosis for this admission?: Yes Plan: Patient presented from [facility] with fever and hypoxia CXR revealed LLL pneumonia. Treated with 1 dose of Zosyn in the emergency department. Continue cefepime 2 g IV q8hr for healthcare associated pneumonia. If febrile > 101, will re-culture (2) UTI (urinary tract infection) Qualifiers: Encounter type: initial encounter Is this a current diagnosis for this admission?: Yes Plan: Urinalysis upon admission indicative of UTI. Urine culture positive for E. coli, sensitive to cefepime. Continue cefepime 2 g IV q8h - double coverage for PNA and UTI If febrile > 101, will need to re-culture (3) Acute on chronic renal failure Is this a current diagnosis for this admission?: Yes Plan: Improving. Likely secondary to dehydration stemming from acute infection. Patient has a history of CKD II, baseline creatinine 1.0 Creatinine improved from 2.4 to 1.9. Continue maintenance IVF. (4) Dementia Qualifiers: Dementia type: unspecified type Dementia behavioral disturbance: without behavioral disturbance Qualified Code(s): F03.90 - Unspecified dementia without behavioral disturbance Is this a current diagnosis for this admission?: Yes - Time Time Spent with patient: 15-24 minutes Medications reviewed and adjusted accordingly: Yes Anticipated discharge: SNF Within: within 48 hours - Inpatient Certification Based on my medical assessment, after consideration of the patient's comorbidities, presenting symptoms, or acuity I expect that the services needed warrant INPATIENT care.: Yes I certify that my determination is in accordance with my understanding of Medicare's requirements for reasonable and necessary INPATIENT services [42 CFR 412.3e].: Yes Medical Necessity: Need For IV Fluids, Need for IV Antibiotics - Plan Summary Plan Summary: discharge back to [facility] group home facility
[2017-11-29] MEDS: ATORVASTATIN CALCIUM 10 MG TABLET PO SCH (21:22)
[2017-11-29] MEDS: SENNOSIDES/DOCUSATE 8.6-50 MG 1 EACH TABLET PO SCH (21:23)
[2017-11-29] MEDS: QUETIAPINE FUMARATE 25 MG TABLET PO SCH (21:23)
[2017-11-30] MEDS: IPRATROPIUM/ALBUTEROL 0.5-2.5 MG/3 ML AMPUL NEB SCH ×4 (02:18→20:56)
[2017-11-30] MEDS: NORMAL SALINE 1000 ML 1,000 ML IV PRN (05:11)
[2017-11-30] MEDS: HEPARIN SOD (PORCINE) 5,000 UNIT/ML 1 ML SYRINGE SUBCUT SCH ×3 (05:11→21:26)
[2017-11-30 07:09] LABS: ABSOLUTE BASOPHILS # (AUTO) 0.1 10^3/uL (0.0-0.2); ABSOLUTE EOSINOPHILS # (AUTO) 0.3 10^3/uL (0.0-0.6); ABSOLUTE LYMPHOCYTES (AUTO) 1.4 10^3/uL (0.5-4.7); ABSOLUTE MONOCYTES (AUTO) 0.4 10^3/uL (0.1-1.4); ABSOLUTE NEUT (AUTO) 2.9 10^3/uL (1.7-8.2); BASOPHILS % (AUTO) 1.5 % (0-2); EOSINOPHILS % (AUTO) 5.6 % (0-6); HEMATOCRIT 27.2 % (36.0-47.0); LYMPHOCYTES % (AUTO) 27.9 % (13-45); MEAN CORPUSCULAR HEMOGLOBIN 29.5 pg (27.0-33.4); MEAN CORPUSCULAR HGB CONC 32.9 g/dL (32.0-36.0); MEAN CORPUSCULAR VOLUME 90 fl (80-97); MONOCYTES % (AUTO) 8.4 % (3-13); PLATELET COUNT 215 10^3/uL (150-450); RED BLOOD COUNT 3.04 10^6/uL (3.72-5.28); RED CELL DISTRIBUTION WIDTH 15.4 % (11.5-14.0); SEGMENTED NEUTROPHILS % (AUTO) 56.6 % (42-78); TOTAL CELLS COUNTED % (AUTO) 100 %; WHITE BLOOD COUNT 5.2 10^3/uL (4.0-10.5)
[2017-11-30 07:41] LABS: ALANINE AMINOTRANSFERASE 36 U/L (9-52); ALBUMIN 2.9 g/dL (3.5-5.0); ALKALINE PHOSPHATASE 150 U/L (38-126); ANION GAP 12 (5-19); ASPARTATE AMINO TRANSFERASE 42 U/L (14-36); BILIRUBIN,DIRECT 0.2 mg/dL (0.0-0.4); BILIRUBIN,TOTAL 0.2 mg/dL (0.2-1.3); BLOOD UREA NITROGEN 24 mg/dL (7-20); CALCIUM 8.9 mg/dL (8.4-10.2); CARBON DIOXIDE 21 mmol/L (22-30); CHLORIDE 114 mmol/L (98-107); GLUCOSE 116 mg/dL (75-110); POTASSIUM 4.4 mmol/L (3.6-5.0); SODIUM 146.6 mmol/L (137-145); TOTAL PROTEIN 6.2 g/dL (6.3-8.2)
[2017-11-30] MEDS: POLYETHYLENE GLYCOL 3350 POWDER 17 GM/1 PACKET PO SCH (09:29)
[2017-11-30] MEDS: METOPROLOL SUCCINATE 25 MG TAB.SR.24H PO SCH (09:30)
[2017-11-30] MEDS: ASPIRIN 81 MG TABLET, ENT COATED PO SCH (09:30)
[2017-11-30] MEDS: CEFEPIME 2 GM/D5W RTU 2 GM/50 ML RTUPB IV SCH ×2 (09:31→21:26)
[2017-11-30] MEDS: FLUTICASONE NASAL SPRAY 50 MCG/SPRY 120 SPRAY/16 GM NASL SCH (09:31)
[2017-11-30] MEDS: DOCUSATE SODIUM 100 MG CAPSULE PO SCH (09:32)
[2017-11-30] MEDS ORDERED: NORMAL SALINE 1000 ML 500 ML IV ONE (10:49)
[2017-11-30] MEDS ORDERED: HALOPERIDOL LACTATE INJ 5 MG/1 ML VIAL ONE (13:59)
--- NOTE | 2017-11-30 18:45 | PDOC PROGRESS REPORT ---
Subjective Progress Note for:: 11/30/17 Subjective:: SHAHBAZ ROSA is a 77 y.o. F with a PMH of dementia, AAA, chronic bilateral hydronephrosis, CKD stage II, cholelithiasis, chronic constipation. She presented to the ED on 11/26/2017 for fever and hypoxia. CXR revealed LLL pneumonia. Urinalysis also suggestive of UTI, urine culture positive for E. coli. Patient was seen this morning on rounds, she is resting comfortably in bed on room air. The patient is alert and oriented to self only. She is disoriented to time, place, situation. The patient has no complaints, she denies chest pain , shortness of breath, fever or chills. Nursing staff reports episodes of agitation. Reportedly, the patient has been yelling and cursing at staff. She has not always been cooperative with care. Reason For Visit: ARF/UTI/PNEUMONIA Physical Exam Vital Signs: Temp Pulse Resp BP Pulse Ox 97.7 F 100 16 153/76 H 98 11/30/17 15:44 11/30/17 15:44 11/30/17 15:44 11/30/17 15:44 11/30/17 15:44 Intake & Output 11/29/17 11/30/17 12/01/17 06:59 06:59 06:59 Intake Total 3171 2766 811 Output Total 706 300 300 Balance 2465 2466 511 Weight 59 kg 43 kg General appearance: PRESENT: no acute distress, well-developed, well-nourished Head exam: PRESENT: atraumatic, normocephalic Eye exam: PRESENT: conjunctiva pink, EOMI, PERRLA. ABSENT: scleral icterus Ear exam: PRESENT: normal external ear exam Mouth exam: PRESENT: moist, tongue midline Neck exam: ABSENT: carotid bruit, JVD, lymphadenopathy, thyromegaly Respiratory exam: PRESENT: clear to auscultation kenn. ABSENT: rales, rhonchi, wheezes Cardiovascular exam: PRESENT: RRR. ABSENT: diastolic murmur, rubs, systolic murmur Pulses: PRESENT: normal dorsalis pedis pul Vascular exam: PRESENT: normal capillary refill GI/Abdominal exam: PRESENT: normal bowel sounds, soft. ABSENT: distended, guarding, mass, organolmegaly, rebound, tenderness Rectal exam: PRESENT: deferred Extremities exam: PRESENT: full ROM. ABSENT: calf tenderness, clubbing, pedal edema Neurological exam: PRESENT: alert, awake, oriented to person. ABSENT: oriented to place, oriented to time, oriented to situation Skin exam: PRESENT: dry, intact, warm. ABSENT: cyanosis, rash Results Laboratory Results: 11/30/17 06:56 11/30/17 06:56 11/30/17 11/30/17 06:56 06:56 WBC 5.2 RBC 3.04 L Hgb 9.0 L Hct 27.2 L MCV 90 MCH 29.5 MCHC 32.9 RDW 15.4 H Plt Count 215 Seg Neutrophils % 56.6 Lymphocytes % 27.9 Monocytes % 8.4 Eosinophils % 5.6 Basophils % 1.5 Absolute Neutrophils 2.9 Absolute Lymphocytes 1.4 Absolute Monocytes 0.4 Absolute Eosinophils 0.3 Absolute Basophils 0.1 Sodium 146.6 H Potassium 4.4 Chloride 114 H Carbon Dioxide 21 L Anion Gap 12 BUN 24 H Creatinine 1.36 H Est GFR ( Amer) 46 L Est GFR (Non-Af Amer) 38 L Glucose 116 H Calcium 8.9 Total Bilirubin 0.2 AST 42 H ALT 36 Alkaline Phosphatase 150 H Total Protein 6.2 L Albumin 2.9 L Impressions: Chest X-Ray 11/26/17 19:19 IMPRESSION: No acute radiographic finding in the chest. Status: Imported from PACS Assessment & Plan - Diagnosis (1) Left lower lobe pneumonia Qualifiers: Pneumonia type: due to unspecified organism Qualified Code(s): J18.1 - Lobar pneumonia, unspecified organism Is this a current diagnosis for this admission?: Yes Plan: [facility] from [facility] with fever and hypoxia CXR revealed LLL pneumonia. Treated with 1 dose of Zosyn in the emergency department. Continue cefepime 2 g IV q8hr for healthcare associated pneumonia. If febrile > 101, will re-culture (2) UTI (urinary tract infection) Qualifiers: Encounter type: initial encounter Is this a current diagnosis for this admission?: Yes Plan: Urinalysis upon admission indicative of UTI. Urine culture positive for E. coli, sensitive to cefepime. Continue cefepime 2 g IV q8h - double coverage for PNA and UTI If febrile > 101, will need to re-culture (3) Acute on chronic renal failure Is this a current diagnosis for this admission?: Yes Plan: Improving. Likely secondary to dehydration stemming from acute infection. Patient has a history of CKD II, baseline creatinine 1.0 Creatinine improved from 2.4 to 1.9. Continue maintenance IVF. (4) Dementia Qualifiers: Dementia type: unspecified type Dementia behavioral disturbance: without behavioral disturbance Qualified Code(s): F03.90 - Unspecified dementia without behavioral disturbance Is this a current diagnosis for this admission?: Yes Plan: History of dementia with acute episodes of delirium while inpatient at [facility]. Acute episodes of delirium likely multifactorial: Manifestation of acute disease process, hospital induced delirium Nursing staff reports patient has been intermittently yelling and cursing. One-time dose of IV Haldol administered. Encourage day/night sleeping cycle. If patient will cooperate, she can be escorted around the unit for daily walks. - Time Time Spent with patient: 15-24 minutes Medications reviewed and adjusted accordingly: Yes Anticipated discharge: SNF Within: within 24 hours - Inpatient Certification Based on my medical assessment, after consideration of the patient's comorbidities, presenting symptoms, or acuity I expect that the services needed warrant INPATIENT care.: Yes I certify that my determination is in accordance with my understanding of Medicare's requirements for reasonable and necessary INPATIENT services [42 CFR 412.3e].: Yes Medical Necessity: Risk of Complication if Not Cared For in Hospital - Plan Summary Plan Summary: Likely discharge back to [facility] tomorrow
[2017-11-30] MEDS: ATORVASTATIN CALCIUM 10 MG TABLET PO SCH (21:26)
[2017-11-30] MEDS: QUETIAPINE FUMARATE 25 MG TABLET PO SCH (21:26)
[2017-11-30] MEDS: SENNOSIDES/DOCUSATE 8.6-50 MG 1 EACH TABLET PO SCH (21:27)
[2017-12-01] MEDS: IPRATROPIUM/ALBUTEROL 0.5-2.5 MG/3 ML AMPUL NEB SCH ×2 (02:14→08:47)
[2017-12-01] MEDS: HEPARIN SOD (PORCINE) 5,000 UNIT/ML 1 ML SYRINGE SUBCUT SCH (05:51)
[2017-12-01] MEDS: NORMAL SALINE 1000 ML 1,000 ML IV PRN (05:51)
[2017-12-01 06:46] LABS: HEMATOCRIT 28.6 % (36.0-47.0); HEMOGLOBIN 9.5 g/dL (12.0-15.5); MEAN CORPUSCULAR HEMOGLOBIN 29.7 pg (27.0-33.4); MEAN CORPUSCULAR HGB CONC 33.2 g/dL (32.0-36.0); MEAN CORPUSCULAR VOLUME 90 fl (80-97); PLATELET COUNT 261 10^3/uL (150-450); RED BLOOD COUNT 3.19 10^6/uL (3.72-5.28); RED CELL DISTRIBUTION WIDTH 15.9 % (11.5-14.0); WHITE BLOOD COUNT 6.9 10^3/uL (4.0-10.5)
[2017-12-01 07:06] LABS: ANION GAP 10 (5-19); BLOOD UREA NITROGEN 24 mg/dL (7-20); CALCIUM 9.3 mg/dL (8.4-10.2); CARBON DIOXIDE 23 mmol/L (22-30); CHLORIDE 114 mmol/L (98-107); GLUCOSE 119 mg/dL (75-110); POTASSIUM 4.5 mmol/L (3.6-5.0)
[2017-12-01 08:05] VITALS: BP 128/78
--- NOTE | 2017-12-01 10:14 | PDOC TRANSFER SUMMARY ---
General Admission Date/PCP: 11/26/17 19:52 Admission Date: 11/26/17 Transfer Date: 12/01/17 Resuscitation Status: Full Code - Transfer Diagnosis (1) Left lower lobe pneumonia Is this a current diagnosis for this admission?: Yes (2) UTI (urinary tract infection) Is this a current diagnosis for this admission?: Yes (3) Acute on chronic renal failure Is this a current diagnosis for this admission?: Yes (4) Dementia Is this a current diagnosis for this admission?: Yes - Transfer Medications Home Medications: Acetaminophen [Mapap] 500 mg PO TID 11/27/17 Aspirin [Adult Low Dose Aspirin EC] 81 mg PO QAM 11/27/17 Atorvastatin Calcium [Lipitor 10 mg Tablet] 10 mg PO QHS 11/27/17 Cold Cream/Zinc Oxide/Star/Gordon [Dermacloud Ointment] 1 applic TOP PRN PRN Cyanocobalamin (Vitamin B-12) [Vitamin B-12] 1,000 mcg PO QAM 11/27/17 Docusate Sodium [Colace 100 mg Capsule] 100 mg PO BID 11/27/17 Fluticasone Propionate [Flonase Nasal [place] 50 Mcg/[place] 16 gm] 2 spray NASL DAILY 11/27/17 Guaifenesin [Robafen] 10 ml PO Q4HP PRN 11/27/17 Haloperidol [Haldol 0.5 mg Tablet] 0.5 mg PO Q6HP PRN 11/27/17 Mag Hydrox/Al Hydrox/Simeth [Maalox Plus Susp 30 Udcup] 30 ml PO Q6HP PRN Magnesium Hydroxide [Milk of Magnesia 30 ml Udcup] 30 ml PO PRN PRN 11/27/17 Metoprolol Succinate [Toprol Xl 25 mg Tab.sr] 12.5 mg PO DAILY 11/27/17 Mirtazapine 7.5 mg PO QHS 11/27/17 Nitroglycerin [Nitrostat 0.4 mg (1/150 Gr) Tabs 25/Bottle] 0.4 mg SL Q5MP PRN Omeprazole 40 mg PO QAM 11/27/17 Polyethylene Glycol 3350 [Miralax Powder 17 gm/Packet] 17 gm PO QAM 11/27/17 Quetiapine Fumarate [Seroquel] 50 mg PO QHS 11/27/17 Sennosides [Senna] 17.2 mg PO QHS 11/27/17 Thiamine Mononitrate (Vit B1) [Vitamin B-1] 100 mg PO QAM 11/27/17 Transfer Medications: Current Medications Acetaminophen (Tylenol 325 Mg Tablet) 650 mg PO Q4HP PRN PRN Reason: PAIN OR FEVER UP TO 101 Stop: 12/26/17 19:43 Albuterol/Ipratropium (Duoneb 3 Ml Ampul) 3 ml NEB [id number] PRN PRN Reason: SHORTNESS OF BREATH Stop: 12/26/17 19:40 Albuterol/Ipratropium (Duoneb 3 Ml Ampul) 3 ml NEB RTQ6 MARIA ISABEL Stop: 12/26/17 19:59 Last Admin: 12/01/17 08:47 Dose: Not Given Aspirin (Ecotrin 81 Mg Ec Tablet) 81 mg PO DAILY MARIA ISABEL Stop: 12/27/17 09:59 Last Admin: 11/30/17 09:30 Dose: 81 mg Atorvastatin Calcium (Lipitor 10 Mg Tablet) 10 mg PO QHS MARIA ISABEL Stop: 12/27/17 21:59 Last Admin: 11/30/17 21:26 Dose: 10 mg Docusate Sodium (Colace 100 Mg Capsule) 100 mg PO DAILY MARIA ISABEL Stop: 12/27/17 09:59 Last Admin: 11/30/17 09:32 Dose: 100 mg Fluticasone Propionate (Flonase Nasal [place] 50 Mcg/[place] 16 Gm) 2 spray NASL DAILY MARIA ISABEL Stop: 12/27/17 09:59 Last Admin: 11/30/17 09:31 Dose: 2 spray Guaifenesin (Robitussin Syrup 200 Mg/10 Ml Ud Cup) 200 mg PO QIDP PRN PRN Reason: COUGH Stop: 12/26/17 19:40 Haloperidol (Haldol 0.5 Mg Tablet) 0.5 mg PO Q6HP PRN PRN Reason: ANXIETY Stop: 12/26/17 19:43 Heparin Sodium (Porcine) (Heparin Inj 5,000 Units/Ml 1 Ml Syringe) 5,000 unit SUBCUT Q8 MARIA ISABEL Stop: 12/26/17 21:59 Last Admin: 12/01/17 05:51 Dose: 5,000 unit Cefepime HCl (Maxipime Rtu 2 Gm-D5w 50 Ml Premix Bag) 2 gm in 50 mls @ 100 mls/ hr IV Q12 MARIA ISABEL Stop: 12/05/17 21:59 Last Admin: 11/30/17 21:26 Dose: 50 ml Sodium Chloride (Nacl 0.9% 1000 Ml Iv Soln) 1,000 mls @ 75 mls/hr IV CONTINUOUS PRN PRN Reason: THIS MED IS NOT "PRN" Stop: 12/28/17 12:38 Last Admin: 12/01/17 05:51 Dose: 1,000 ml Magnesium Hydroxide (Milk Of Magnesia 30 Ml Udcup) 30 ml PO DAILYP PRN PRN Reason: CONSTIPATION Stop: 12/26/17 19:43 Metoprolol Succinate (Toprol Xl 25 Mg Tab.Sr) 12.5 mg PO DAILY MARIA ISABEL Stop: 12/27/17 09:59 Last Admin: 11/30/17 09:30 Dose: 12.5 mg Nitroglycerin (Nitrostat 0.4 Mg (1/150 Gr) Tabs 25/Bottle) 1 tab SL Q5MP PRN PRN Reason: CHEST PAIN Stop: 12/26/17 19:43 Polyethylene Glycol (Miralax Powder 17 Gm/Packet) 17 gm PO DAILY MARIA ISABEL Stop: 12/27/17 09:59 Last Admin: 11/30/17 09:29 Dose: 17 gm Quetiapine Fumarate (Seroquel 25 Mg Tablet) 50 mg PO QHS MARIA ISABEL Stop: 12/26/17 21:59 Last Admin: 11/30/17 21:26 Dose: 50 mg Senna/Docusate Sodium (Senna Plus Tablet) 2 each PO QHS MARIA ISABEL Stop: 12/26/17 21:59 Last Admin: 11/30/17 21:27 Dose: Not Given Sodium Chloride (Saline Flush 2.5 Ml Monoject Prefil Syrin) 2.5 ml IV Q8 MARIA ISABEL Stop: 12/26/17 21:59 Last Admin: 12/01/17 05:47 Dose: Not Given - Allergies Allergies/Adverse Reactions: No Known Allergies Allergy (Verified 08/13/17 09:41) Hospital Course Hospital Course: SHAHBAZ ROSA is a 77 year old female halfway resident, with a history of dementia, 6 cm abdominal aortic aneurysm, chronic bilateral hydronephrosis, stage II chronic kidney disease, cholelithiasis and recurrent, chronic constipation. Unable to provide history herself it is obtained by the record. She is found by halfway staff to have fever, hypoxia brought to the emergency room for evaluation where she is found to have an exam suggestive of left sided pneumonia, Leukocytosis and fever. Urinalysis is also suggestive of pyuria. She receives empiric antibiotics and referred to the hospitalist for admission. Urine culture grew MDR e.coli. Blood cultures were negative. The patient was treated with Cefepime IV to cover healthcare associated PNA (HAP) as well as her MDR e.coli UTI. The patient was also noted to be in ARF (creatinine 1.9). The patient has a history of CKD II but her baseline creatinine is 1.0. Her ARF is likely secondary to dehydration stemming from acute infection. The patient was treated with continuous IVF and her creatinine improved from 2.4 to 1.9. After 5 days inpatient, the decision was made to send Ms. Rosa back to [facility]. She will need to continue oral Levaquin to treat her HAP and MDR UTI. No other changes were made to her medication regimen. Physical Exam Vital Signs: Temp Pulse Resp BP Pulse Ox 97.5 F 109 H 16 128/78 H 90 L 12/01/17 08:22 12/01/17 08:22 12/01/17 08:22 12/01/17 08:22 12/01/17 08:22 Intake & Output 11/30/17 12/01/17 12/02/17 06:59 06:59 06:59 Intake Total 2766 2738 Output Total 300 300 Balance 2466 2438 Weight 43 kg 43.2 kg Results Laboratory Results: 12/01/17 06:11 12/01/17 06:11 12/01/17 12/01/17 06:11 06:11 WBC 6.9 RBC 3.19 L Hgb 9.5 L Hct 28.6 L MCV 90 MCH 29.7 MCHC 33.2 RDW 15.9 H Plt Count 261 Sodium 147.0 H Potassium 4.5 Chloride 114 H Carbon Dioxide 23 Anion Gap 10 BUN 24 H Creatinine 1.14 Est GFR ( Amer) 56 L Est GFR (Non-Af Amer) 46 L Glucose 119 H Calcium 9.3 Magnesium 2.2 Impressions: Chest X-Ray 11/26/17 19:19 IMPRESSION: No acute radiographic finding in the chest. Status: Imported from PACS Plan Discharge Plan: DISCHARGE BACK TO [facility]. CONTINUE 4 DAYS OF ANTIBIOTICS FOR UTI AND HAP Time Spent: Less than 30 Minutes
[2017-12-01] MEDS: POLYETHYLENE GLYCOL 3350 POWDER 17 GM/1 PACKET PO SCH (10:33)
[2017-12-01] MEDS: DOCUSATE SODIUM 100 MG CAPSULE PO SCH (10:33)
[2017-12-01] MEDS: METOPROLOL SUCCINATE 25 MG TAB.SR.24H PO SCH (10:33)
[2017-12-01] MEDS: CEFEPIME 2 GM/D5W RTU 2 GM/50 ML RTUPB IV SCH (10:34)
[2017-12-01] MEDS: FLUTICASONE NASAL SPRAY 50 MCG/SPRY 120 SPRAY/16 GM NASL SCH (10:34)
[2017-12-01] MEDS: ASPIRIN 81 MG TABLET, ENT COATED PO SCH (10:34)
== END 2017-12-01 11:38 | DRG 682 ==
LOC: ER 17:36 → EH 19:52 → 3S 23:55
PROVIDERS: ADMIT Internal Medicine; ATTEND Internal Medicine
PROC: 5A09357 Assistance with Respiratory Ventilation, Less than 24 Consecutive Hours, Continuous Positive Airway Pressure (ICD-10-PCS; principal; 2017-11-27)
PROC: 3E0F73Z Introduction of Anti-inflammatory into Respiratory Tract, Via Natural or Artificial Opening (ICD-10-PCS; 2017-11-27)
DX: N17.9 Acute kidney failure, unspecified (principal); J18.1 Lobar pneumonia, unspecified organism; N39.0 Urinary tract infection, site not specified; E44.0 Moderate protein-calorie malnutrition; Z68.1 Body mass index [BMI] 19.9 or less, adult; Z66 Do not resuscitate; N13.39 Other hydronephrosis; N18.2 Chronic kidney disease, stage 2 (mild); K80.20 Calculus of gallbladder without cholecystitis without obstruction; K59.09 Other constipation; B96.20 Unspecified Escherichia coli [E. coli] as the cause of diseases classified elsewhere; E86.0 Dehydration; I25.10 Atherosclerotic heart disease of native coronary artery without angina pectoris; E78.00 Pure hypercholesterolemia, unspecified; I12.9 Hypertensive chronic kidney disease with stage 1 through stage 4 chronic kidney disease, or unspecified chronic kidney disease; K21.9 Gastro-esophageal reflux disease without esophagitis; M19.90 Unspecified osteoarthritis, unspecified site; G30.9 Alzheimer's disease, unspecified; F02.80 Dementia in other diseases classified elsewhere, unspecified severity, without behavioral disturbance, psychotic disturbance, mood disturbance, and anxiety; D63.1 Anemia in chronic kidney disease; R09.02 Hypoxemia; Z79.82 Long term (current) use of aspirin; Z79.899 Other long term (current) drug therapy
CPT/HCPCS: 36415; 71045; 80048; 80053; 81001; 82550; 82553; 83735; 84100; 84484; 85025; 85027; 87040; 87086; 87088; 87186; 93005; 93010; 94640; 94667; 94799; 99285; J0692; J1630; J1644; J2543; J3490; J7030; J7120; J7620

== ENCOUNTER 2018-02-25 20:33 | Emergency (ER) | payer MEDICARE ==
[2018-02-25 20:41] VITALS: BP 133/70
--- NOTE | 2018-02-25 21:13 | ER Document Report ---
ED General - General Chief Complaint: Abdominal Pain Stated Complaint: ABDOMINAL PAIN Time Seen by Provider: 02/25/18 20:46 Cannot obtain history due to: Dementia Notes: Patient is a 77-year-old female who presents from her nursing facility with reported complaint of abdominal pain. The patient is profoundly demented and knows only her knee and is unable to provide any meaningful history. She currently denies any complaints and states that she does not know why she is here. TRAVEL OUTSIDE OF THE [place] IN LAST 30 DAYS: No - Related Data Allergies/Adverse Reactions: No Known Allergies Allergy (Verified 08/13/17 09:41) Past Medical History - General Information source: Transfer Record, Outside Facility Records Cannot obtain history due to: Dementia - Social History Smoking Status: Never Smoker Frequency of alcohol use: None Drug Abuse: None Lives with: Intermediate Family History: Other - Patient suffers from dementia Patient has suicidal ideation: No Patient has homicidal ideation: No - Past Medical History Cardiac Medical History: Reports: Hx Coronary Artery Disease, Hx Hypercholesterolemia, Hx Hypertension Renal/ Medical History: Denies: Hx Peritoneal Dialysis GI Medical History: Reports: Hx Gastroesophageal Reflux Disease Musculoskeletal Medical History: Reports Hx Arthritis Psychiatric Medical History: Reports: Hx Dementia - Alzheimer's Past Surgical History: Reports: Hx Abdominal Surgery, Hx Vascular Surgery - AAA biforcated stent placement - Immunizations Hx Diphtheria, Pertussis, Tetanus Vaccination: No Review of Systems - Review of Systems Notes: Constitutional: Negative for fever. HENT: Negative for sore throat. Eyes: Negative for visual changes. Cardiovascular: Negative for chest pain. Respiratory: Negative for shortness of breath. Gastrointestinal: Negative for abdominal pain, vomiting or diarrhea. Genitourinary: Negative for dysuria. Musculoskeletal: Negative for back pain. Skin: Negative for rash. Neurological: Negative for headaches, weakness or numbness. 10 point ROS negative except as marked above and in HPI. Physical Exam - Vital signs Vitals: Temp Pulse BP Pulse Ox 97.7 F 72 133/70 H 95 02/25/18 20:38 02/25/18 20:38 02/25/18 20:38 02/25/18 20:38 Interpretation: Normal Notes: PHYSICAL EXAMINATION: GENERAL: Appears stated age. Resting comfortably in bed. In no distress. HEAD: Atraumatic, normocephalic. EYES: Pupils equal round and reactive to light, extraocular movements intact, sclera anicteric, conjunctiva are normal. ENT: nares patent, oropharynx clear without exudates. Moderately dry mucous membranes. NECK: Normal range of motion, supple without lymphadenopathy LUNGS: Breath sounds clear to auscultation bilaterally and equal. No wheezes rales or rhonchi. HEART: Regular rate and rhythm without murmurs ABDOMEN: Soft, nontender, normoactive bowel sounds. No guarding, no rebound. No masses appreciated. EXTREMITIES: Normal range of motion, no pitting or edema. No cyanosis. NEUROLOGICAL: No focal neurological deficits. Moves all extremities spontaneously and on command. PSYCH: Alert, oriented only to person SKIN: Warm, Dry, normal turgor, no rashes or lesions noted. Course - Re-evaluation Re-evalutation: 02/25/18 21:13 Presentation of a profoundly demented 77-year-old woman in no distress from her nursing facility apparently with concerns of abdominal pain. The patient currently has no abdominal pain, denies any complaints. She is profoundly demented however. She is currently on hospice care and the hospice nurse did contact her facility stating that she is uncertain why the patient was transferred given her hospice status. Patient has no focal abdominal tenderness , rebound or guarding on exam. Given that she is under hospice care which we have called to confirm is the case do not believe it is appropriate to proceed with diagnostic evaluation for the reported complaint of abdominal pain and the patient currently denies. She will be transferred back to her facility and I have encouraged ongoing comfort measures. - Vital Signs Vital signs: Temp Pulse Resp BP Pulse Ox 97.7 F 72 133/70 H 95 02/25/18 20:38 02/25/18 20:38 02/25/18 20:38 02/25/18 20:38 Discharge - Discharge Clinical Impression: Hospice care patient Dementia Qualifiers: Dementia type: unspecified type Dementia behavioral disturbance: with behavioral disturbance Qualified Code(s): F03.91 - Unspecified dementia with behavioral disturbance Abdominal pain Qualifiers: Abdominal location: unspecified location Qualified Code(s): R10.9 - Unspecified abdominal pain Disposition: HOME, SELF-CARE Additional Instructions: The patient is under hospice measures. She should be referred to the emergency department only for symptomatic control. No workup was undertaken today as she is currently hospice status.
== END 2018-02-25 22:19 | disposition home or self-care (01) ==
LOC: ER 20:33
DX: Z51.5 Encounter for palliative care (principal); F03.91 Unspecified dementia, unspecified severity, with behavioral disturbance; R10.9 Unspecified abdominal pain
CPT/HCPCS: 99283